=== PATIENT | female | born 1970 | race Caucasian/White ===

== ENCOUNTER 2016-06-09 01:14 | Inpatient (IN) | payer BC ==
[~2016-06-09] VITALS: Ht 160 cm; Wt 74.7 kg
[~2016-06-09 01:14] MED LIST: AUGM500T34 OR; EXCETAB80 PO; LEVA250T OR; LEXAPRO OR; NO HOME MEDS; PERCOCET OR; REVIA; SERO200T OR; TYLE325T5 PO
[2016-06-09 03:39] LABS: BASO % 0.5 % (0.0-1.0); EOS # 0.1 K/mm3 (0.0-0.50); EOS % 1.6 % (0.0-3.0); LARGE UNSTAINED CELL # 0.2 K/mm3 (0.0-0.4); LYMPH # 1.1 K/mm3 (1.5-4.5); LYMPH % 14.3 % (24.0-44.0); MEAN CORPUSCULAR HEMOGLOBIN 24.6 pg (27.0-33.0); MEAN CORPUSCULAR HGB CONC 31.3 g/dl (32.0-36.5); MEAN CORPUSCULAR VOLUME 78.8 fl (80.0-96.0); MONO # 0.5 K/mm3 (0.0-0.8); MONO % 6.4 % (0.0-5.0); NEUTROPHILS # 5.7 K/mm3 (1.8-7.7); NEUTROPHILS % 75.2 % (36.0-66.0); PLATELET COUNT, AUTOMATED 467 k/mm3 (150-450); WHITE BLOOD COUNT 7.6 K/mm3 (4.0-10.0)
[2016-06-09] MEDS ORDERED: HYDROmorphone HCL 1 MG/ML SYRINGE (J1170) As Ordered ONE (03:39)
[2016-06-09 03:50] LABS: ALBUMIN 3.8 GM/DL (3.2-5.2); ALKALINE PHOSPHATASE 69 U/L (45-117); ALT/SGPT 16 U/L (12-78); AMYLASE 53 U/L (25-115); ANION GAP 9 MEQ/L (8-16); AST/SGOT 9 U/L (15-37); BILIRUBIN,DIRECT < 0.1 MG/DL (0.0-0.2); BILIRUBIN,TOTAL 0.5 MG/DL (0.2-1.0); BLOOD UREA NITROGEN 11 MG/DL (7-18); CALCIUM LEVEL 9.1 MG/DL (8.5-10.1); CARBON DIOXIDE LEVEL 26 MEQ/L (21-32); CHLORIDE LEVEL 107 MEQ/L (98-107); CREATININE FOR GFR 0.97 MG/DL (0.55-1.02); GLOMERULAR FILTRATION RATE > 60.0 (>58); GLUCOSE, FASTING 102 MG/DL (70-105); POTASSIUM SERUM 3.5 MEQ/L (3.5-5.1); SODIUM LEVEL 142 MEQ/L (136-145)
[2016-06-09] MEDS ORDERED: ISOVUE-370 76% 100ML VIAL (Q9967) As Ordered ONE (05:08)
--- NOTE | 2016-06-09 06:50 | REPUSA ---
CLINICAL HISTORY: Abdominal pain. TECHNIQUE: Multiple axial, sagittal and coronal CT images were obtained through the abdomen and pelvi s after administration of intravenous contrast material. COMMENTS: Comparison is made to the prior exam performed on 04/28/2016. The liver is of uniform attenuation without mass or defect. There is no intra or extrahepatic biliary ductal dilatation. The spleen is normal. The gallbladder is within normal limits. The pancreas is of normal contour and attenuation characteristics. There is no evidence of adrenal mass. Both kidneys demonstrate prompt and equal nephrograms. The kidneys are normal in size, shape and conf iguration. There is no evidence of renal or ureteral mass. No renal or ureteral calculi are identifie d. There is no hydroureter or hydronephrosis. No evidence for appendicitis. No evidence for small or large bowel obstruction. There is no evidence of intrinsic or extrinsic bladder mass. Unchanged thickened bladder. Increased d iffuse sigmoid wall thickening. Mild increase in surrounding free fluid and fat stranding. Images of the lung bases show no evidence of pleural or parenchymal mass. There are no pleural effusi ons. The bony structures are free of lytic or blastic lesions. Multilevel degenerative changes are seen in volving the thoracolumbar spine. Scattered calcifications are seen involving the aorta and major bran ches compatible with atherosclerosis. IMPRESSION: Sigmoid colitis/diverticulitis. This has increased. Increased free fluid. No perforation or abscess formation. Unchanged cystitis. Thank you for your kind referral of this patient.
[2016-06-09] MEDS ORDERED: CIPROFLOXACIN/D5W 400 MG/200 ML BAG (J0744) As Ordered ONE (07:01)
[2016-06-09] MEDS ORDERED: metroNIDAZOLE/NACL 500MG(5MG/ML)100 ML BAG (S0030) As Ordered ONE (07:24)
[2016-06-09] MEDS ORDERED: MORPHINE 2 MG/ML 1ML SYRINGE As Ordered ONE (09:05)
[2016-06-09] MEDS ORDERED: ONDANSETRON 4MG/2ML VIAL (J2405) As Ordered ONE (09:05)
--- NOTE | 2016-06-09 10:05 | HPE ---
DATE OF ADMISSION: 06/09/2016 PRIMARY CARE PROVIDER: [facility] CHIEF COMPLAINT: Left lower abdominal pain. HISTORY OF PRESENT ILLNESS: This patient is a 46-year-old female with past medical history significant for diverticulitis, migraines, psoriasis, presented to [facility] on 06/09/2016 for worsening of left lower abdominal pain. The patient has a history of diverticulitis since 2 years ago, and the patient has a recurrence of her diverticulitis. The patient has been in [facility] multiple times in the past, including November, January, and April for similar symptoms. For current episode, the pain started since 6 days ago. On 06/04/2016, the pain start acutely when she was having a bowel movement. The pain started at the left lower quadrant, and the pain has been intermittent, worsening with a bowel movement or any type of oral intake. The pain resolved when the patient is not taking any oral intake. The pain is sharp and radiates to the back and the thigh. The patient also complained about nausea and vomiting associated with the pain. Denies any other associated symptoms. When the patient arrived to the emergency room, the patient had a CT imaging performed, which showed sigmoid colitis/diverticulitis and is worsening compared to previous imaging. The patient was given intravenous (IV) Dilaudid and antibiotic of Cipro was started, and the hospitalist team was called for admission. ALLERGIES: PHENERGAN (hallucination). REGLAN (agitation, hyperactivity). The patient's home medication: - aspirin 162 mg by mouth every day PAST MEDICAL HISTORY: Recurrent diverticulitis. Migraine headaches (The patient was prescribed nortriptyline in the past in the last hospitalization; however, the patient stopped taking the medication due to discomfort from the medication.) History of psoriasis. History of shingles. PAST SURGICAL HISTORY: Tubal ligation. Appendectomy. SOCIAL HISTORY: Denies smoking. Denies alcohol use. Denies any recreational drug use. The patient has multiple tattoos throughout her whole body. REVIEW OF SYSTEMS: General: No fever. No chills. HEENT: No vision changes. No auditory changes. CARDIOVASCULAR: No chest pain. No palpitations. RESPIRATORY: No shortness of breath. No cough. No sputum production. GASTROINTESTINAL (GI): Acute left lower abdominal pain. Sharp. Radiates to the back and the thigh. Started approximately 6 days ago. A history of recurrent diverticulitis. MUSCULOSKELETAL: Multiple tattoos throughout her whole body. NEUROLOGICAL: Denies any numbness or tingling. OBJECTIVE: VITAL SIGNS: Blood pressure is 119/56. Pulse is 93. Respiration 20. Temperature is 98.3. Pulse oximetry is 96% in room air. Body weight is 73.48 kg. Body height is 160 cm. GENERAL: Mild to moderate distress, worsening with abdominal pain. Alert and oriented times three. HEENT: Normocephalic, atraumatic. Extraocular motor grossly intact. CARDIOVASCULAR: Positive S1, S2. Regular rate. LUNGS: Clear to auscultation bilaterally. No wheezes or rhonchi. ABDOMEN: Severe tenderness from palpation when palpated on the right side of abdomen, the tenderness occur on the left side. Mild pressure at the left lower abdomen causes significant sharp pain with the radiations. Abdomen is soft. Bowel sounds present. EXTREMITIES: No edema. No cyanosis. DERMATOLOGICAL: Multiple tattoos throughout the whole body. NEUROLOGICAL: Sensation to fine touch grossly intact. Muscle strength 5/5. LABORATORY DATA: WBC is 7.6, hemoglobin 10.6, hematocrit 34, platelet count is 467. Sodium is 142, potassium 3.5, chloride 107, carbon dioxide 36, BUN 11, creatinine 0.97, GFR greater than 60, fasting glucose 102, lactic acid 0.6, calcium 9.1, total bilirubin 0.5, direct bilirubin less than 0.1, AST 9, ALT 16, alkaline phosphatase 69, total protein 8, albumin is 3.8, amylase 53, lipase is 160. IMAGING STUDIES: CT of abdomen and pelvis with contrast shows sigmoid colitis/diverticulitis, and it has increased. Free fluid. No perforation or abscess formation. Positive for cystitis. ASSESSMENT: 1. Diverticulitis. The patient will be admitted to the medical-surgical floor on the inpatient status. The patient was started on IV Cipro and IV flagyl, and the patient will start nothing by mouth, and IV morphine is used for pain control. IV Zofran for nausea and vomiting. The patient currently cannot even tolerate any type of oral intake. The patient will be on IV fluid. 2. History of migraines. Neurology was consulted during the last hospitalization. Nortriptyline was prescribed, however, the patient complained about severe reaction to the nortriptyline; and, therefore, the patient has not been taking the medication. 3. History of psoriasis, stable. 4. Deep venous thrombosis (DVT) prophylaxis. The patient will be on heparin.
--- NOTE | 2016-06-09 10:55 | EDDOCDS ---
Nurse's Notes [facility] Name: Melida Welch Age: 46 yrs Sex: Female : 1970 Arrival Date: 06/09/2016 Time: 01:14 Bed 6 Private MD: Diagnosis: Diverticulitis of large intestine without perforation or abscess without bleeding Presentation: 06/09 01:29 Presenting complaint: Patient states: abdominal pain since Friday gradually getting cz worse vomiting when attempting to eat. last b.m. one week ago used magnesium citrate without relief. Risk factors: the patient reports no vaginal bleeding. Adult Sepsis Screening: The patient does not have new or worsening altered mentation. Patient has a respiratory rate of greater than or equal to 22 (1 point). Systolic blood pressure is greater than 100. Patient has a qSOFA score of 0- Negative Sepsis Screen. Suicide/Homicide risk assessment- the patient denies having any suicidal and/or homicidal ideations and does not present with any other emotional, behavioral or mental health complaints. Status: Patient is not a director of perioperative services or dependent. Transition of care: patient was not received from another setting of care. 01:29 Acuity: KATY Level 3 cz 01:29 Method Of Arrival: Walkin/Carried/Asstd cz Triage Assessment: 01:31 General: Appears distressed, uncomfortable. Pain: Location: abdomen Pain currently is cz 10 out of 10 on a pain scale. HIV screening NA for this visit Offered previously. ACCOUNTANT COST: 01:31 LMP 06/02/2016 cz Historical: - Allergies: Phenergan (hallucination); Reglan (hyperactive); - Home Meds: 1. aspirin 81 mg Oral chew 2 tabs once daily - PMHx: Diverticulitis; Migraines; Psoriasis; Shingles; - PSHx: Tubal ligation; Appendectomy; - Social history: Smoking status: Patient states was never smoker of tobacco. No barriers to communication noted, The patient speaks fluent Vietnamese, Speaks appropriately for age. - Family history: Not pertinent. - : The pt / caregiver states he / she is not on anticoagulants. Home medication list is obtained from [employer] import data. - Exposure Risk Screening:: None identified. Screenin:55 Screening information is obtained from the patient. Fall risk: No risks identified. js15 Assistance ADL's: requires no assistance with activities of daily living. Abuse/DV Screen: The patient / caregiver reports he/she is: not in a situation that causes fear, pain or injury. Nutritional screening: No deficits noted. Advance Directives: There is no active DNR order. home support is adequate. Assessment: 03:15 General: Appears distressed, uncomfortable, Behavior is crying. Pain: Location: abdomen js15 Pain currently is 10 out of 10 on a pain scale. Neurological: Level of Consciousness is awake, alert, obeys commands, Oriented to person, place, time. Cardiovascular: Capillary refill < 3 seconds. Respiratory: Airway is patent Respiratory effort is even, unlabored, Respiratory pattern is regular, symmetrical. GI: Abdomen is distended, Bowel sounds present X 4 quads. Abd is tender to palpation in abdomen diffusely firm. Derm: Skin is pink, warm & dry. 04:30 Reassessment: Patient appears in no apparent distress at this time. Pt resting on js15 stretcher, respirations even and unlabored; skin pink, warm, dry. 05:55 Reassessment: Patient appears in no apparent distress at this time. Patient denies pain js15 at this time. Patient states feeling better. Patient states symptoms have improved. Pt resting on stretcher with eyes closed; significant other at bedside; respirations even and unlabored; skin pink, warm, dry. 06:56 General: Appears in no apparent distress, to be sleeping. Respiratory: Airway is patent js15 Respiratory effort is even, unlabored, Respiratory pattern is regular, symmetrical. Derm: Skin is pink, warm & dry. 07:26 General: Appears in no apparent distress, Behavior is appropriate for age, cooperative. srm Neurological: No deficits noted. EENT: No deficits noted. Cardiovascular: Heart tones present. Respiratory: Airway is patent Respiratory effort is even, unlabored, Breath sounds are clear bilaterally. GI: Abdomen is distended, Bowel sounds present X 4 quads. Abd is soft X 4 quads Abd is tender to palpation X 4 quads. 08:23 General: pt resting on stretcher. nausea comes and goes. awaiting admitting MD to patricia srm pt. pt states she really doesn't want to be admitted. encouraged her to inform admitting MD when they arrive. 09:14 General: Appears uncomfortable, Behavior is appropriate for age, cooperative. srm Neurological: No deficits noted. Cardiovascular: Capillary refill < 3 seconds in bilateral fingers. Respiratory: No deficits noted. GI: Abdomen is distended, Bowel sounds present X 4 quads. Abd is tender to palpation X 4 quads. Reports lower abdominal pain, nausea. 10:46 General: Appears in no apparent distress, Behavior is appropriate for age, cooperative. srm Neurological: No deficits noted. :. Derm: Skin is pale. Vital Signs: 01:31 BP 164 / 91; Pulse 144; Resp 22; Temp 97(O); Pulse Ox 97% on R/A; Weight 73.48 kg; cz Height 5 ft. 3 in. (160.02 cm); 06:00 BP 119 / 56 RA Supine (auto/reg); Pulse 93 MON; Resp 20 S; Temp 98.3(TE); Pulse Ox 96% cln on R/A; Pain 3/10; 09:17 BP 105 / 70; Pulse 99; Resp 18; Temp 98.7(O); Pulse Ox 95% on R/A; Pain 3/10; nb2 10:47 BP 99 / 55; Pulse 109; Resp 18; Temp 98.6(O); Pulse Ox 95% on R/A; Pain 2/10; nb2 01:31 Body Mass Index 28.70 (73.48 kg, 160.02 cm) Vitals: 01:31 Log In Time: June 09, 2016 at 01:14. ED Course: 01:16 Patient visited by Quynh Aguilar. gjb 01:16 Patient moved to Waiting gjb 01:22 Patient moved to Triage 1 cz 01:30 Triage Initiated 01:33 Patient moved to 6 cz 02:33 Patient visited by Rika Castillo PCA. solomon 03:08 Samm Harris DO is Attending Physician. cs11 03:08 Patient visited by Samm Harris DO. cs11 03:40 Inserted saline lock: 20 gauge in left antecubital area The patient tolerated the js15 procedure well. 03:49 [facility] [place] Payment Agreement was scanned into [employer] and attached to record. [facility] 03:54 Lactic Acid (Oakes tube on ice) Sent. js15 04:21 Patient visited by Marjorie Moncada RN. js15 05:39 Patient visited by Marjorie Moncada RN. js15 06:01 Patient visited by Ginger Barroso PCA. cln 06:56 Patient visited by Marjorie Moncada,MONICA. js15 07:06 Report received from Kristy Moncada rn. srm 07:07 CT ABD & PELVIS: IV Contrast Only Returned. EDMS 07:12 Sulaiman Terrazas is Hospitalizing Provider. cs11 07:28 Patient visited by Dayami Parker RN. srm 07:28 The patient / caregiver is instructed regarding the plan of care and ED course. srm 07:43 Edward Crawford MD is Hospitalizing Provider. cs11 08:12 Citlaly Pemberton principal statistical scientist. ys2 08:24 Patient visited by Dayami Parker RN. srm 08:31 Patient visited by Dayami Parker RN. srm 09:16 Patient visited by Dayami Parker RN. srm 09:16 ATTEMPTED TO CALL REPORT NOONE ANSWERED THE PHONE. srm 09:17 Patient visited by Dayami Parker RN. srm 09:17 Patient visited by Stephany Mon. nb2 10:36 Patient visited by Eliezer Cha RN. bcj 10:47 Patient visited by Stephany Mon. nb2 10:53 No procedures done that require assistance. srm Administered Medications: 03:48 Drug: NS 0.9% 1000 ml [sodium chloride 0.9 % intravenous solution] Route: IV; Rate: js15 bolus; Site: left antecubital; 05:24 Follow up: IV Status: Completed infusion; IV Intake: 1000ml ko2 03:48 Drug: Dilaudid - HYDROmorphone 1 mg [hydromorphone 1 mg/mL injection syringe (1 mL)] js15 Route: IVP; Site: left antecubital; 07:06 Drug: Ciprofloxacin 400 mg [ciprofloxacin 400 mg/200 mL in 5 % dextrose intravenous pml piggyback] Route: IVPB; Rate: 200 mL/hr; Infused Over: 60 mins; Site: left antecubital; 08:06 Follow up: IV Status: Completed infusion srm 09:08 Follow up: IV Status: Completed infusion srm 08:06 Drug: metroNIDAZOLE 500 mg [metronidazole 500 mg/100 mL-sodium chloride(iso) srm intravenous piggyback] Route: IVPB; Rate: 100 mL/hr; Infused Over: 60 mins; Site: left antecubital; 09:08 Drug: NS 0.9% 1000 ml [sodium chloride 0.9 % intravenous solution] Route: IV; Rate: 80 srm mL/hr; Site: left antecubital; 09:08 Drug: Ondansetron 4 mg [ondansetron HCl 2 mg/mL intravenous solution (2 mL)] Route: srm IVP; Site: left antecubital; 09:09 Drug: morphine 2 mg [morphine 2 mg/mL intravenous cartridge (1 mL)] Route: IVP; Site: srm left antecubital; Intake: 05:24 IV: 1000.00ml; Total: 1000.00ml. ko2 09:14 IV: 300.00ml; Total: 1300.00ml. srm 10:53 IV: 250.00ml; Total: 1550.00ml. srm 09:14 IV ANTIBIOTICS srm Order Results: Lab Order: CBC with Diff; SPEC'M 06/09/16 03:19 Test: WHITE BLOOD COUNT; Value: 7.6; Range: 4.0-10.0; Units: K/mm3; Status: F Test: RED BLOOD COUNT; Value: 4.31; Range: 4.00-5.40; Units: M/mm3; Status: F Test: HEMOGLOBIN; Value: 10.6; Range: 12.0-16.0; Abnormal: Below low normal; Units: g/dl; Status: F Test: HEMATOCRIT; Value: 34.0; Range: 36.0-47.0; Abnormal: Below low normal; Units: %; Status: F Test: MEAN CORPUSCULAR VOLUME; Value: 78.8; Range: 80.0-96.0; Abnormal: Below low normal; Units: fl; Status: F Test: MEAN CORPUSCULAR HEMOGLOBIN; Value: 24.6; Range: 27.0-33.0; Abnormal: Below low normal; Units: pg; Status: F Test: MEAN CORPUSCULAR HGB CONC; Value: 31.3; Range: 32.0-36.5; Abnormal: Below low normal; Units: g/dl; Status: F Test: RED CELL DISTRIBUTION WIDTH; Value: 17.0; Range: 11.5-14.5; Abnormal: Above high normal; Units: %; Status: F Test: PLATELET COUNT, AUTOMATED; Value: 467; Range: 150-450; Abnormal: Above high normal; Units: k/mm3; Status: F Test: NEUTROPHILS %; Value: 75.2; Range: 36.0-66.0; Abnormal: Above high normal; Units: %; Status: F Test: LYMPH %; Value: 14.3; Range: 24.0-44.0; Abnormal: Below low normal; Units: %; Status: F Test: MONO %; Value: 6.4; Range: 0.0-5.0; Abnormal: Above high normal; Units: %; Status: F Test: EOS %; Value: 1.6; Range: 0.0-3.0; Units: %; Status: F Test: BASO %; Value: 0.5; Range: 0.0-1.0; Units: %; Status: F Test: LARGE UNSTAINED CELL %; Value: 2.0; Range: 0.0-4.0; Units: %; Status: F Test: NEUTROPHILS #; Value: 5.7; Range: 1.8-7.7; Units: K/mm3; Status: F Test: LYMPH #; Value: 1.1; Range: 1.5-4.5; Abnormal: Below low normal; Units: K/mm3; Status: F Test: MONO #; Value: 0.5; Range: 0.0-0.8; Units: K/mm3; Status: F Test: EOS #; Value: 0.1; Range: 0.0-0.50; Units: K/mm3; Status: F Test: BASO #; Value: 0.0; Range: 0.0-0.2; Units: K/mm3; Status: F Test: LARGE UNSTAINED CELL #; Value: 0.2; Range: 0.0-0.4; Units: K/mm3; Status: F Lab Order: MED Profile; SPEC'M 06/09/16 03:19 Test: GLUCOSE, FASTING; Value: 102; Range: 70-105; Units: MG/DL; Status: F Test: BLOOD UREA NITROGEN; Value: 11; Range: 7-18; Units: MG/DL; Status: F Test: CREATININE FOR GFR; Value: 0.97; Range: 0.55-1.02; Units: MG/DL; Status: F Test: GLOMERULAR FILTRATION RATE; Value: > 60.0; Range: >58; Status: F Test: SODIUM LEVEL; Value: 142; Range: 136-145; Units: MEQ/L; Status: F Test: POTASSIUM SERUM; Value: 3.5; Range: 3.5-5.1; Units: MEQ/L; Status: F Test: CHLORIDE LEVEL; Value: 107; Range: 98-107; Units: MEQ/L; Status: F Test: CARBON DIOXIDE LEVEL; Value: 26; Range: 21-32; Units: MEQ/L; Status: F Test: ANION GAP; Value: 9; Range: 8-16; Units: MEQ/L; Status: F Test: CALCIUM LEVEL; Value: 9.1; Range: 8.5-10.1; Units: MG/DL; Status: F Test Note: ; Units are mL/min/1.73 m2 Chronic Kidney Disease Staging per NKF: Stage I & II GFR >=60 Normal to Mildly Decreased Stage III GFR 30-59 Moderately Decreased Stage IV GFR 15-29 Severely Decreased Stage V GFR <15 Very Little GFR Left ESRD GFR <15 on 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 Lab Order: Liver Profile; SPEC'M 06/09/16 03:19 Test: AST/SGOT; Value: 9; Range: 15-37; Abnormal: Below low normal; Units: U/L; Status: F Test: ALT/SGPT; Value: 16; Range: 12-78; Units: U/L; Status: F Test: ALKALINE PHOSPHATASE; Value: 69; Range: 45-117; Units: U/L; Status: F Test: BILIRUBIN,TOTAL; Value: 0.5; Range: 0.2-1.0; Units: MG/DL; Status: F Test: BILIRUBIN,DIRECT; Value: < 0.1; Range: 0.0-0.2; Units: MG/DL; Status: F Test: TOTAL PROTEIN; Value: 8.0; Range: 6.4-8.2; Units: GM/DL; Status: F Test: ALBUMIN; Value: 3.8; Range: 3.2-5.2; Units: GM/DL; Status: F Test: ALBUMIN/GLOBULIN RATIO; Value: 0.90; Range: 1.00-1.93; Abnormal: Below low normal; Status: F Lab Order: Amylase; SPEC'M 06/09/16 03:19 Test: AMYLASE; Value: 53; Range: 25-115; Units: U/L; Status: F Lab Order: Lipase; SPEC'M 06/09/16 03:19 Test: LIPASE; Value: 160; Range: 73-393; Units: U/L; Status: F Lab Order: Urinalysis; SPEC'M 06/09/16 03:54 Test: APPEARANCE, URINE; Value: CLEAR; Range: CLEAR; Status: F Test: COLOR, URINE; Value: YELLOW; Range: YELLOW; Status: F Test: PH,URINE; Value: 5.0; Range: 5.0-9.0; Units: UNITS; Status: F Test: SPECIFIC GRAVITY URINE AUTO; Value: 1.026; Range: 1.002-1.035; Status: F Test: PROTEIN, URINE AUTO; Value: NEGATIVE; Range: NEGATIVE; Units: mg/dL; Status: F Test: GLUCOSE, URINE (UA) AUTO; Value: NEGATIVE; Range: NEGATIVE; Units: mg/dL; Status: F Test: KETONE, URINE AUTO; Value: NEGATIVE; Range: NEGATIVE; Units: mg/dL; Status: F Test: UROBILINOGEN, URINE AUTO; Value: 0.2; Range: 0.0-2.0; Units: mg/dL; Status: F Test: BILIRUBIN, URINE AUTO; Value: NEGATIVE; Range: NEGATIVE; Status: F Test: NITRITE, URINE AUTO; Value: NEGATIVE; Range: NEGATIVE; Status: F Test: LEUKOCYTE ESTERASE, URINE AUTO; Value: NEGATIVE; Range: NEGATIVE; Status: F Test: BLOOD, URINE BLOOD; Value: NEGATIVE; Range: NEGATIVE; Status: F Test: WBC, URINE AUTO; Value: 2; Range: 0-3; Units: /HPF; Status: F Test: RBC, URINE AUTO; Value: 1; Range: 0-3; Units: /HPF; Status: F Test: BACTERIA, URINE AUTO; Value: 1+; Range: NEGATIVE; Abnormal: Above high normal; Status: F Test: SQUAMOUS EPITHELIAL CELL UR AU; Value: 7; Range: 0-6; Units: /HPF; Status: F Test: MUCUS, URINE; Value: SMALL; Range: NEGATIVE; Status: F Test: HYALINE CAST, URINE AUTO; Value: 0; Range: 0-1; Units: /LPF; Status: F Lab Order: Lactic Acid (Oakes tube on ice); SPEC'M 06/09/16 03:52 Test: LACTIC ACID LEVEL, LACTATE; Value: 0.6; Range: 0.4-2.0; Units: MMOL/L; Status: F Radiology Order: CT ABD & PELVIS: IV Contrast Only Test: CT ABD & PELVIS: IV Contrast Only REASON FOR EXAMINATION: Abdomen Pain; ; CLINICAL HISTORY: Abdominal pain.; TECHNIQUE: Multiple axial, sagittal and coronal CT images were obtained through the abdomen and pelvi; s after administration of intravenous contrast material.; COMMENTS:; Comparison is made to the prior exam performed on 04/28/2016.; The liver is of uniform attenuation without mass or defect. There is no intra or extrahepatic biliary; ductal dilatation. The spleen is normal. The gallbladder is within normal limits. The pancreas is of; normal contour and attenuation characteristics. There is no evidence of adrenal mass.; Both kidneys demonstrate prompt and equal nephrograms. The kidneys are normal in size, shape and conf; iguration. There is no evidence of renal or ureteral mass. No renal or ureteral calculi are identifie; d. There is no hydroureter or hydronephrosis.; No evidence for appendicitis. No evidence for small or large bowel obstruction.; There is no evidence of intrinsic or extrinsic bladder mass. Unchanged thickened bladder. Increased d; iffuse sigmoid wall thickening. Mild increase in surrounding free fluid and fat stranding.; Images of the lung bases show no evidence of pleural or parenchymal mass. There are no pleural effusi; ons.; The bony structures are free of lytic or blastic lesions. Multilevel degenerative changes are seen in; volving the thoracolumbar spine. Scattered calcifications are seen involving the aorta and major bran; ches compatible with atherosclerosis.; IMPRESSION:; Sigmoid colitis/diverticulitis. This has increased.; Increased free fluid.; No perforation or abscess formation.; Unchanged cystitis.; Thank you for your kind referral of this patient.; ; Outcome: 07:12 Decision to Hospitalize by Provider. cs11 10:53 Discharge Assessment: Patient awake, alert and oriented x 3. No cognitive and/or srm functional deficits noted. Patient verbalized understanding of disposition instructions. patient administered narcotics - yes. Patient was admitted to the hospital or transferred to another facility. The following High Risk Discharge criteria are identified: None. Admitted to Med/Surg accompanied by tech, via stretcher, with chart. Condition: stable. CT Study completed. Property :Personal belongings accompany Pt. 10:55 Patient left the ED. srm Signatures: Dispatcher [employer] EDMS Eliezer Cha, RN RN Dayami Paulson RN RN Alejandro Whitaker, RN Rika Del Cid, PRACTICAL NURSE PRACTICAL NURSE Telma ReaRN RN Samm Lopez, DO cs11 Lucia JayRN RN ko2 Johanna Trimble JuliaRN RN js15 Quynh Aguilar Yu ys2 Ginger Barroso, PRACTICAL NURSE PRACTICAL NURSE Stephany Connor2 MTDD
--- NOTE | 2016-06-09 10:55 | EDDOCDS ---
Physician Documentation [facility] Name: Melida Welch Age: 46 yrs Sex: Female : 1970 Arrival Date: 06/09/2016 Time: 01:14 Bed 6 Private MD: Disposition: 06/09/16 07:12 Hospitalization ordered by Edward Crawford for Inpatient Admission. Preliminary diagnosis is Diverticulitis of large intestine without perforation or abscess without bleeding. - Bed requested for 5 [employer]. - Status is Inpatient Admission. srm - Condition is Stable. - Problem is an ongoing problem. - Symptoms have improved. Historical: - Allergies: Phenergan (hallucination); Reglan (hyperactive); - Home Meds: 1. aspirin 81 mg Oral chew 2 tabs once daily - PMHx: Diverticulitis; Migraines; Psoriasis; Shingles; - PSHx: Tubal ligation; Appendectomy; - Social history: Smoking status: Patient states was never smoker of tobacco. No barriers to communication noted, The patient speaks fluent Japanese, Speaks appropriately for age. - Family history: Not pertinent. - : The pt / caregiver states he / she is not on anticoagulants. Home medication list is obtained from [employer] import data. - Exposure Risk Screening:: None identified. 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 3 in. (160.02 cm); 06:00 BP 119 / 56 RA Supine (auto/reg); Pulse 93 MON; Resp 20 S; Temp 98.3(TE); Pulse Ox 96% cln on R/A; Pain 3/10; 09:17 BP 105 / 70; Pulse 99; Resp 18; Temp 98.7(O); Pulse Ox 95% on R/A; Pain 3/10; nb2 10:47 BP 99 / 55; Pulse 109; Resp 18; Temp 98.6(O); Pulse Ox 95% on R/A; Pain 2/10; nb2 01:31 Body Mass Index 28.70 (73.48 kg, 160.02 cm) cz MDM: 03:[address] [facility] 03:28 IV Saline Lock ordered. cs11 03:28 NS 0.9% 1000 ml IV at bolus once ordered. cs11 03:28 Dilaudid - HYDROmorphone 1 mg IVP once ordered. cs11 03:29 CBC with Diff Ordered. EDMS 03:29 MED Profile Ordered. EDMS 03:29 Liver Profile Ordered. EDMS 03:29 Amylase Ordered. EDMS 03:29 Lipase Ordered. EDMS 03:29 Urinalysis Ordered. EDMS 03:29 Urine Culture Ordered. EDMS 03:29 Lactic Acid (Oakes tube on ice) Ordered. EDMS 03:49 [facility] Payment Agreement was scanned into [employer] and attached to record. slh 04:25 CBC with Diff Reviewed. cs11 04:25 Liver Profile Reviewed. cs11 04:25 Urinalysis Reviewed. cs11 04:25 MED Profile Reviewed. cs11 04:25 Amylase Reviewed. cs11 04:25 Lipase Reviewed. cs11 04:25 Lactic Acid (Oakes tube on ice) Reviewed. cs11 04:27 CT ABD & PELVIS: IV Contrast Only Ordered. EDMS 06:58 BED REQUEST+ADM ordered. EDMS 06:59 metroNIDAZOLE 500 mg IVPB at 100 mL/hr once over 60 mins ordered. cs11 06:59 Ciprofloxacin 400 mg IVPB at 200 mL/hr once over 60 mins ordered. cs11 08:50 Admission / Observation Status ordered. EDMS 08:50 NPO DIET ordered. EDMS 09:12 NS 0.9% 1000 ml IV at 80 mL/hr continuous ordered. srm 09:13 morphine 2 mg IVP once ordered. srm 09:13 Ondansetron 4 mg IVP once ordered. srm Administered Medications: 03:48 Drug: NS 0.9% 1000 ml [sodium chloride 0.9 % intravenous solution] Route: IV; Rate: js15 bolus; Site: left antecubital; 05:24 Follow up: IV Status: Completed infusion; IV Intake: 1000ml ko2 03:48 Drug: Dilaudid - HYDROmorphone 1 mg [hydromorphone 1 mg/mL injection syringe (1 mL)] js15 Route: IVP; Site: left antecubital; 07:06 Drug: Ciprofloxacin 400 mg [ciprofloxacin 400 mg/200 mL in 5 % dextrose intravenous pml piggyback] Route: IVPB; Rate: 200 mL/hr; Infused Over: 60 mins; Site: left antecubital; 08:06 Follow up: IV Status: Completed infusion [facility] 09:08 Follow up: IV Status: Completed infusion [facility] 08:06 Drug: metroNIDAZOLE 500 mg [metronidazole 500 mg/100 mL-sodium chloride(iso) srm intravenous piggyback] Route: IVPB; Rate: 100 mL/hr; Infused Over: 60 mins; Site: left antecubital; 09:08 Drug: NS 0.9% 1000 ml [sodium chloride 0.9 % intravenous solution] Route: IV; Rate: 80 srm mL/hr; Site: left antecubital; 09:08 Drug: Ondansetron 4 mg [ondansetron HCl 2 mg/mL intravenous solution (2 mL)] Route: srm IVP; Site: left antecubital; 09: Drug: morphine 2 mg [morphine 2 mg/mL intravenous cartridge (1 mL)] Route: IVP; Site: [facility] left antecubital; Signatures: Dispatcher [employer] EDEliezer Meléndez RN RN bcj Michelson, Staci, RN RN [facility] Alejandro Og RN RN cz Rabon, Alicia, PROPERTY ANALYST PROPERTY ANALYST ar3 Samm Harris, DO cs11 Johanna [address] [facility] Telma Blankenship RN, Kari RN ko2 Marjorie Moncada RN js15 The chart was reviewed and I authenticate all verbal orders and agree with the evaluation and treatment provided.Attachments: 03:[address] [facility] Payment [address] [facility] MTDD
[2016-06-09 11:13] VITALS: BP 111/69
[2016-06-09] MEDS: HEPARIN SOD (PORCINE) 5000 UNITS/ML VIAL SC SCH ×2 (13:40→20:46)
[2016-06-09] MEDS: MORPHINE 2 MG/ML 1ML SYRINGE IV PRN ×3 (13:40→20:52)
[2016-06-09] MEDS: NS 1,000 ML IV SCH ×2 (13:41→20:47)
[2016-06-09 20:00] VITALS: BP 115/68
[2016-06-10] MEDS: MORPHINE 2 MG/ML 1ML SYRINGE IV PRN ×6 (00:41→18:34)
[2016-06-10] MEDS: HEPARIN SOD (PORCINE) 5000 UNITS/ML VIAL SC SCH ×3 (04:41→21:34)
[2016-06-10 06:00] VITALS: BP 105/59
[2016-06-10 06:53] LABS: MEAN CORPUSCULAR HEMOGLOBIN 24.3 pg (27.0-33.0); MEAN CORPUSCULAR HGB CONC 30.1 g/dl (32.0-36.5); MEAN CORPUSCULAR VOLUME 80.9 fl (80.0-96.0); WHITE BLOOD COUNT 4.9 K/mm3 (4.0-10.0)
[2016-06-10 07:23] LABS: ANION GAP 8 MEQ/L (8-16); BLOOD UREA NITROGEN 5 MG/DL (7-18); CALCIUM LEVEL 8.5 MG/DL (8.5-10.1); CARBON DIOXIDE LEVEL 24 MEQ/L (21-32); CHLORIDE LEVEL 110 MEQ/L (98-107); CREATININE FOR GFR 0.73 MG/DL (0.55-1.02); GLOMERULAR FILTRATION RATE > 60.0 (>58); GLUCOSE, FASTING 84 MG/DL (70-105); POTASSIUM SERUM 4.4 MEQ/L (3.5-5.1); SODIUM LEVEL 142 MEQ/L (136-145)
[2016-06-10] MEDS: NS 1,000 ML IV SCH (09:07)
[2016-06-10] MEDS: ONDANSETRON 4MG/2ML VIAL (J2405) IV PRN ×2 (09:08→15:12)
[2016-06-10] MEDS ORDERED: CIPROFLOXACIN 400 MG in APPROPRIATE DILUENT 1 EA IV SCH ×2 (11:00→19:00)
[2016-06-10] MEDS: metroNIDAZOLE 500 MG in APPROPRIATE DILUENT 1 EA IV SCH ×2 (13:35→21:33)
[2016-06-10 14:00] VITALS: BP 113/55
[2016-06-10] MEDS: CEFEPIME HCL 2 GM in D5W MINI-BAG PLUS 50 ML IV SCH (15:01)
[2016-06-10 16:00] VITALS: BP 122/67
--- NOTE | 2016-06-10 17:42 | IPN ---
DATE: 06/10/2016 SUBJECTIVE: Patient is seen and examined in the room today. Patient still complained about abdominal discomfort. Patient had received antibiotics in the emergency room yesterday. Ciprofloxacin was attempted again today. However, the patient started having gastrointestinal (GI) intolerance from the Cipro. OBJECTIVE: VITAL SIGNS: Temperature is 98.1, pulse is 95, respiratory rate 18, blood pressure is 105/59, pulse oximetry is 96% on room air. GENERAL: Mild to moderate distress secondary to GI discomfort. Patient is alert and oriented times three. HEENT: Normocephalic, atraumatic. Extraocular motor grossly intact. CARDIOVASCULAR: Positive S1, S2, regular rate. LUNGS: Clear to auscultation bilaterally. No wheezes, rales, or rhonchi. ABDOMEN: Tenderness to palpation especially in the lower abdomen, left side is more significant than the right side. Abdomen is soft. Bowel sounds present. EXTREMITIES: No edema. No cyanosis. LABORATORY DATA: WBC 4.9, hemoglobin 9.4, hematocrit 31.3, platelet count is 362. Sodium is 142, potassium 4.4, chloride is 110, carbon dioxide 24, BUN 5, creatinine is 0.73, GFR is greater than 60, fasting glucose 84, calcium is 8.4. ASSESSMENT AND PLAN: 1. Diverticulitis. The patient had IV antibiotics in the emergency room yesterday. Today, the patient was restarted on Cipro and Flagyl. However, the patient is unable to tolerate the IV Cipro due to the gastrointestinal (GI) symptoms. IV Zofran is not able to control the symptoms. The patient is allergic to Reglan and Phenergan. We will switch her antibiotic to IV Flagyl and IV cefepime. The patient will continue on the pain control with the medications. The patient is continued on nothing by mouth. 2. History of migraine, stable. 3. History of psoriasis, stable. 4. Deep vein thrombosis (DVT) prophylaxis. The patient is on heparin.
[2016-06-10 20:00] VITALS: BP 101/59
[2016-06-10] MEDS ORDERED: PERCOCET 5MG/325MG TAB PO PRN (22:45)
[2016-06-11] VITALS: BP 106/62
[2016-06-11] MEDS: PERCOCET 5MG/325MG TAB PO PRN ×3 (00:30→10:13)
[2016-06-11 04:00] VITALS: BP 99/59
[2016-06-11] MEDS: CEFEPIME HCL 2 GM in D5W MINI-BAG PLUS 50 ML IV SCH ×2 (04:00→14:46)
[2016-06-11] MEDS: metroNIDAZOLE 500 MG in APPROPRIATE DILUENT 1 EA IV SCH ×3 (04:00→20:33)
[2016-06-11] MEDS: NS 1,000 ML IV SCH ×2 (04:00→14:46)
[2016-06-11] MEDS: HEPARIN SOD (PORCINE) 5000 UNITS/ML VIAL SC SCH ×3 (06:16→20:33)
[2016-06-11 07:33] LABS: MEAN CORPUSCULAR HEMOGLOBIN 24.7 pg (27.0-33.0); MEAN CORPUSCULAR HGB CONC 30.9 g/dl (32.0-36.5); RED CELL DISTRIBUTION WIDTH 16.5 % (11.5-14.5)
[2016-06-11 08:00] VITALS: BP 109/67
[2016-06-11 08:02] LABS: ANION GAP 8 MEQ/L (8-16); BLOOD UREA NITROGEN 8 MG/DL (7-18); CALCIUM LEVEL 8.3 MG/DL (8.5-10.1); CARBON DIOXIDE LEVEL 23 MEQ/L (21-32); CHLORIDE LEVEL 110 MEQ/L (98-107); CREATININE FOR GFR 0.68 MG/DL (0.55-1.02); GLOMERULAR FILTRATION RATE > 60.0 (>58); GLUCOSE, FASTING 81 MG/DL (70-105); POTASSIUM SERUM 3.8 MEQ/L (3.5-5.1); SODIUM LEVEL 141 MEQ/L (136-145)
[2016-06-11] MEDS ORDERED: INFLUENZA QUADRIVALENT PF VACCINE 0.5ML SYRINGE/VIAL (90686) IM ONE (09:00)
--- NOTE | 2016-06-11 11:16 | IPN ---
DATE: 06/11/2016 46-year-old female resting comfortably. She feels that abdominal pain is much improved. She is not nauseated. No vomiting and no reported diarrhea. OBJECTIVE: Temperature 97.1, pulse 98, respiratory rate 16, blood pressure (BP) 109/67, SpO2 is 99% on room air. General: The patient appears to be in no acute distress, is alert, oriented. HEENT: Unremarkable. Lungs: Clear. Heart: Regular rate and rhythm. Abdomen: Some vague left lower quadrant tenderness but no rebound. Positive bowel sounds. No masses. No rebound. Extremities: No edema. No calf tenderness. LABORATORY DATA: White count 5.2, hemoglobin 9.5, platelets 316,000. Sodium 141, potassium 3.8, chloride 110, bicarbonate 23, anion gap 8, BUN is 8, creatinine 0.68, glucose is 81, calcium is 8.3. ASSESSMENT AND PLAN: 1. Diverticulitis. Continue on current antibiotic. She is on intravenous (IV) Flagyl and cefotetan. Was unable to tolerate IV Cipro. Continue with IV Zofran and will try to advance her diet today. Anticipate home discharge in the next 24-48 hours. 2. History of migraine, stable. No current issues. 3. History of psoriasis. No issues. 4. Deep venous thrombosis (DVT) prophylaxis. On heparin. DISPOSITION: Anticipate home discharge, possibly with the next 24 hours.
--- NOTE | 2016-06-11 11:56 | EDDOCDS ---
Physician Documentation [facility] Name: Melida Welch Age: 46 yrs Sex: Female : 1970 Arrival Date: 06/09/2016 Time: 01:14 Bed 6 Private MD: Disposition: 06/09/16 07:12 Hospitalization ordered by Edward Crawford for Inpatient Admission. Preliminary diagnosis is Diverticulitis of large intestine without perforation or abscess without bleeding. - Bed requested for 5 [employer]. - Status is Inpatient Admission. srm - Condition is Stable. - Problem is an ongoing problem. - Symptoms have improved. Historical: - Allergies: Phenergan (hallucination); Reglan (hyperactive); - Home Meds: 1. aspirin 81 mg Oral chew 2 tabs once daily - PMHx: Diverticulitis; Migraines; Psoriasis; Shingles; - PSHx: Tubal ligation; Appendectomy; - Social history: Smoking status: Patient states was never smoker of tobacco. No barriers to communication noted, The patient speaks fluent Yoruba, Speaks appropriately for age. - Family history: Not pertinent. - : The pt / caregiver states he / she is not on anticoagulants. Home medication list is obtained from [employer] import data. - Exposure Risk Screening:: None identified. 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 3 in. (160.02 cm); 06:00 BP 119 / 56 RA Supine (auto/reg); Pulse 93 MON; Resp 20 S; Temp 98.3(TE); Pulse Ox 96% cln on R/A; Pain 3/10; 09:17 BP 105 / 70; Pulse 99; Resp 18; Temp 98.7(O); Pulse Ox 95% on R/A; Pain 3/10; nb2 10:47 BP 99 / 55; Pulse 109; Resp 18; Temp 98.6(O); Pulse Ox 95% on R/A; Pain 2/10; nb2 01:31 Body Mass Index 28.70 (73.48 kg, 160.02 cm) cz MDM: 03:20 Financial registration complete. [facility] 03:28 IV Saline Lock ordered. cs11 03:28 NS 0.9% 1000 ml IV at bolus once ordered. cs11 03:28 Dilaudid - HYDROmorphone 1 mg IVP once ordered. cs11 03:29 CBC with Diff Ordered. EDMS 03:29 MED Profile Ordered. EDMS 03:29 Liver Profile Ordered. EDMS 03:29 Amylase Ordered. EDMS 03:29 Lipase Ordered. EDMS 03:29 Urinalysis Ordered. EDMS 03:29 Urine Culture Ordered. EDMS 03:29 Lactic Acid (Oakes tube on ice) Ordered. EDMS 03:49 [facility] Payment Agreement was scanned into [employer] and attached to record. slh 04:25 CBC with Diff Reviewed. cs11 04:25 Liver Profile Reviewed. cs11 04:25 Urinalysis Reviewed. cs11 04:25 MED Profile Reviewed. cs11 04:25 Amylase Reviewed. cs11 04:25 Lipase Reviewed. cs11 04:25 Lactic Acid (Oakes tube on ice) Reviewed. cs11 04:27 CT ABD & PELVIS: IV Contrast Only Ordered. EDMS 06:58 BED REQUEST+ADM ordered. EDMS 06:59 metroNIDAZOLE 500 mg IVPB at 100 mL/hr once over 60 mins ordered. cs11 06:59 Ciprofloxacin 400 mg IVPB at 200 mL/hr once over 60 mins ordered. cs11 08:50 Admission / Observation Status ordered. EDMS 08:50 NPO DIET ordered. EDMS 09:12 NS 0.9% 1000 ml IV at 80 mL/hr continuous ordered. srm 09:13 morphine 2 mg IVP once ordered. srm 09:13 Ondansetron 4 mg IVP once ordered. srm 19:32 T-Sheet-- Draft Copy was scanned into [employer] and attached to record. klr Administered Medications: 03:48 Drug: NS 0.9% 1000 ml [sodium chloride 0.9 % intravenous solution] Route: IV; Rate: js15 bolus; Site: left antecubital; 05:24 Follow up: IV Status: Completed infusion; IV Intake: 1000ml ko2 03:48 Drug: Dilaudid - HYDROmorphone 1 mg [hydromorphone 1 mg/mL injection syringe (1 mL)] js15 Route: IVP; Site: left antecubital; 07:06 Drug: Ciprofloxacin 400 mg [ciprofloxacin 400 mg/200 mL in 5 % dextrose intravenous pml piggyback] Route: IVPB; Rate: 200 mL/hr; Infused Over: 60 mins; Site: left antecubital; 08:06 Follow up: IV Status: Completed infusion [facility] 09:08 Follow up: IV Status: Completed infusion [facility] 08:06 Drug: metroNIDAZOLE 500 mg [metronidazole 500 mg/100 mL-sodium chloride(iso) srm intravenous piggyback] Route: IVPB; Rate: 100 mL/hr; Infused Over: 60 mins; Site: left antecubital; 09:08 Drug: NS 0.9% 1000 ml [sodium chloride 0.9 % intravenous solution] Route: IV; Rate: 80 srm mL/hr; Site: left antecubital; 09:08 Drug: Ondansetron 4 mg [ondansetron HCl 2 mg/mL intravenous solution (2 mL)] Route: srm IVP; Site: left antecubital; 09:09 Drug: morphine 2 mg [morphine 2 mg/mL intravenous cartridge (1 mL)] Route: IVP; Site: [facility] left antecubital; Signatures: Dispatcher [employer] EDEliezer Meléndez RN RN Dayami Paulson RN RN [facility] Alejandro Og, RN RN cz Imelda Morse, PHARMACY TECHNICIAN PHARMACY TECHNICIAN ar3 Samm Harris, DO ALBRECHT cs11 Johanna Trimble Kitty Jim Paulina RN [facility] Lucia Jay RN ko2 Marjorie Moncada RN js15 The chart was reviewed and I authenticate all verbal orders and agree with the evaluation and treatment provided.Attachments: 03:49 [facility] Payment Agreement [facility] 19:32 T-Sheet-- Draft Copy [email or web address] Chart Complete [facility]
--- NOTE | 2016-06-11 11:56 | EDDOCDS ---
Nurse's Notes [facility] Name: Melida Welch Age: 46 yrs Sex: Female : 1970 Arrival Date: 06/09/2016 Time: 01:14 Bed 6 Private MD: Diagnosis: Diverticulitis of large intestine without perforation or abscess without bleeding Presentation: 06/09 01:29 Presenting complaint: Patient states: abdominal pain since Friday gradually getting cz worse vomiting when attempting to eat. last b.m. one week ago used magnesium citrate without relief. Risk factors: the patient reports no vaginal bleeding. Adult Sepsis Screening: The patient does not have new or worsening altered mentation. Patient has a respiratory rate of greater than or equal to 22 (1 point). Systolic blood pressure is greater than 100. Patient has a qSOFA score of 0- Negative Sepsis Screen. Suicide/Homicide risk assessment- the patient denies having any suicidal and/or homicidal ideations and does not present with any other emotional, behavioral or mental health complaints. Status: Patient is not a service desk specialist or dependent. Transition of care: patient was not received from another setting of care. 01:29 Acuity: KATY Level 3 cz 01:29 Method Of Arrival: Walkin/Carried/Asstd cz Triage Assessment: 01:31 General: Appears distressed, uncomfortable. Pain: Location: abdomen Pain currently is cz 10 out of 10 on a pain scale. HIV screening NA for this visit Offered previously. 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 aspirin 81 mg Oral chew 2 tabs once daily - PMHx: Diverticulitis; Migraines; Psoriasis; Shingles; - PSHx: Tubal ligation; Appendectomy; - Social history: Smoking status: Patient states was never smoker of tobacco. No barriers to communication noted, The patient speaks fluent Romanian, Speaks appropriately for age. - Family history: Not pertinent. - : The pt / caregiver states he / she is not on anticoagulants. Home medication list is obtained from [employer] import data. - Exposure Risk Screening:: None identified. Screenin:55 Screening information is obtained from the patient. Fall risk: No risks identified. js15 Assistance ADL's: requires no assistance with activities of daily living. Abuse/DV Screen: The patient / caregiver reports he/she is: not in a situation that causes fear, pain or injury. Nutritional screening: No deficits noted. Advance Directives: There is no active DNR order. home support is adequate. Assessment: 03:15 General: Appears distressed, uncomfortable, Behavior is crying. Pain: Location: abdomen js15 Pain currently is 10 out of 10 on a pain scale. Neurological: Level of Consciousness is awake, alert, obeys commands, Oriented to person, place, time. Cardiovascular: Capillary refill < 3 seconds. Respiratory: Airway is patent Respiratory effort is even, unlabored, Respiratory pattern is regular, symmetrical. GI: Abdomen is distended, Bowel sounds present X 4 quads. Abd is tender to palpation in abdomen diffusely firm. Derm: Skin is pink, warm & dry. 04:30 Reassessment: Patient appears in no apparent distress at this time. Pt resting on js15 stretcher, respirations even and unlabored; skin pink, warm, dry. 05:55 Reassessment: Patient appears in no apparent distress at this time. Patient denies pain js15 at this time. Patient states feeling better. Patient states symptoms have improved. Pt resting on stretcher with eyes closed; significant other at bedside; respirations even and unlabored; skin pink, warm, dry. 06:56 General: Appears in no apparent distress, to be sleeping. Respiratory: Airway is patent js15 Respiratory effort is even, unlabored, Respiratory pattern is regular, symmetrical. Derm: Skin is pink, warm & dry. 07:26 General: Appears in no apparent distress, Behavior is appropriate for age, cooperative. srm Neurological: No deficits noted. EENT: No deficits noted. Cardiovascular: Heart tones present. Respiratory: Airway is patent Respiratory effort is even, unlabored, Breath sounds are clear bilaterally. GI: Abdomen is distended, Bowel sounds present X 4 quads. Abd is soft X 4 quads Abd is tender to palpation X 4 quads. 08:23 General: pt resting on stretcher. nausea comes and goes. awaiting admitting MD to patricia srm pt. pt states she really doesn't want to be admitted. encouraged her to inform admitting MD when they arrive. 09:14 General: Appears uncomfortable, Behavior is appropriate for age, cooperative. srm Neurological: No deficits noted. Cardiovascular: Capillary refill < 3 seconds in bilateral fingers. Respiratory: No deficits noted. GI: Abdomen is distended, Bowel sounds present X 4 quads. Abd is tender to palpation X 4 quads. Reports lower abdominal pain, nausea. 10:46 General: Appears in no apparent distress, Behavior is appropriate for age, cooperative. srm Neurological: No deficits noted. :. Derm: Skin is pale. Vital Signs: 01:31 BP 164 / 91; Pulse 144; Resp 22; Temp 97(O); Pulse Ox 97% on R/A; Weight 73.48 kg; cz Height 5 ft. 3 in. (160.02 cm); 06:00 BP 119 / 56 RA Supine (auto/reg); Pulse 93 MON; Resp 20 S; Temp 98.3(TE); Pulse Ox 96% cln on R/A; Pain 3/10; 09:17 BP 105 / 70; Pulse 99; Resp 18; Temp 98.7(O); Pulse Ox 95% on R/A; Pain 3/10; nb2 10:47 BP 99 / 55; Pulse 109; Resp 18; Temp 98.6(O); Pulse Ox 95% on R/A; Pain 2/10; nb2 01:31 Body Mass Index 28.70 (73.48 kg, 160.02 cm) Vitals: 01:31 Log In Time: June 09, 2016 at 01:14. ED Course: 01:16 Patient visited by Quynh Aguilar. gjb 01:16 Patient moved to Waiting gjb 01:22 Patient moved to Triage 1 cz 01:30 Triage Initiated 01:33 Patient moved to 6 cz 02:33 Patient visited by Rika Castillo PCA. solomon 03:08 Samm Harris DO is Attending Physician. cs11 03:08 Patient visited by Samm Harris DO. cs11 03:40 Inserted saline lock: 20 gauge in left antecubital area The patient tolerated the js15 procedure well. 03:49 [facility] Payment Agreement was scanned into [employer] and attached to record. [facility] 03:54 Lactic Acid (Oakes tube on ice) Sent. js15 04:21 Patient visited by Marjorie Moncada RN. js15 05:39 Patient visited by Marjorie Moncada RN. js15 06:01 Patient visited by Ginger Barroso PCA. cln 06:56 Patient visited by Marjorie Moncada,MONICA. js15 07:06 Report received from Kristy Moncada rn. srm 07:07 CT ABD & PELVIS: IV Contrast Only Returned. EDMS 07:12 Sulaiman Terrazas is Hospitalizing Provider. cs11 07:28 Patient visited by Dayami Parker RN. srm 07:28 The patient / caregiver is instructed regarding the plan of care and ED course. srm 07:43 Edward Crawford MD is Hospitalizing Provider. cs11 08:12 Citlaly Pemberton economist research assistant. ys2 08:24 Patient visited by Dayami Parker RN. srm 08:31 Patient visited by Dayami Parker RN. srm 09:16 Patient visited by Dayami Parker RN. srm 09:16 ATTEMPTED TO CALL REPORT NOONE ANSWERED THE PHONE. srm 09:17 Patient visited by Dayami Parker RN. srm 09:17 Patient visited by Stephany Mon. nb2 10:36 Patient visited by Eliezer Cha RN. bcj 10:47 Patient visited by Stephany Mon. nb2 10:53 No procedures done that require assistance. srm 19:32 T-Sheet-- Draft Copy was scanned into [employer] and attached to record. klr Administered Medications: 03:48 Drug: NS 0.9% 1000 ml [sodium chloride 0.9 % intravenous solution] Route: IV; Rate: js15 bolus; Site: left antecubital; 05:24 Follow up: IV Status: Completed infusion; IV Intake: 1000ml ko2 03:48 Drug: Dilaudid - HYDROmorphone 1 mg [hydromorphone 1 mg/mL injection syringe (1 mL)] js15 Route: IVP; Site: left antecubital; 07:06 Drug: Ciprofloxacin 400 mg [ciprofloxacin 400 mg/200 mL in 5 % dextrose intravenous pml piggyback] Route: IVPB; Rate: 200 mL/hr; Infused Over: 60 mins; Site: left antecubital; 08:06 Follow up: IV Status: Completed infusion srm 09:08 Follow up: IV Status: Completed infusion srm 08:06 Drug: metroNIDAZOLE 500 mg [metronidazole 500 mg/100 mL-sodium chloride(iso) srm intravenous piggyback] Route: IVPB; Rate: 100 mL/hr; Infused Over: 60 mins; Site: left antecubital; 09:08 Drug: NS 0.9% 1000 ml [sodium chloride 0.9 % intravenous solution] Route: IV; Rate: 80 srm mL/hr; Site: left antecubital; 09:08 Drug: Ondansetron 4 mg [ondansetron HCl 2 mg/mL intravenous solution (2 mL)] Route: srm IVP; Site: left antecubital; 09:09 Drug: morphine 2 mg [morphine 2 mg/mL intravenous cartridge (1 mL)] Route: IVP; Site: srm left antecubital; Intake: 05:24 IV: 1000.00ml; Total: 1000.00ml. ko2 09:14 IV: 300.00ml; Total: 1300.00ml. srm 10:53 IV: 250.00ml; Total: 1550.00ml. srm 09:14 IV ANTIBIOTICS srm Order Results: Lab Order: CBC with Diff; SPEC'M 06/09/16 03:19 Test: WHITE BLOOD COUNT; Value: 7.6; Range: 4.0-10.0; Units: K/mm3; Status: F Test: RED BLOOD COUNT; Value: 4.31; Range: 4.00-5.40; Units: M/mm3; Status: F Test: HEMOGLOBIN; Value: 10.6; Range: 12.0-16.0; Abnormal: Below low normal; Units: g/dl; Status: F Test: HEMATOCRIT; Value: 34.0; Range: 36.0-47.0; Abnormal: Below low normal; Units: %; Status: F Test: MEAN CORPUSCULAR VOLUME; Value: 78.8; Range: 80.0-96.0; Abnormal: Below low normal; Units: fl; Status: F Test: MEAN CORPUSCULAR HEMOGLOBIN; Value: 24.6; Range: 27.0-33.0; Abnormal: Below low normal; Units: pg; Status: F Test: MEAN CORPUSCULAR HGB CONC; Value: 31.3; Range: 32.0-36.5; Abnormal: Below low normal; Units: g/dl; Status: F Test: RED CELL DISTRIBUTION WIDTH; Value: 17.0; Range: 11.5-14.5; Abnormal: Above high normal; Units: %; Status: F Test: PLATELET COUNT, AUTOMATED; Value: 467; Range: 150-450; Abnormal: Above high normal; Units: k/mm3; Status: F Test: NEUTROPHILS %; Value: 75.2; Range: 36.0-66.0; Abnormal: Above high normal; Units: %; Status: F Test: LYMPH %; Value: 14.3; Range: 24.0-44.0; Abnormal: Below low normal; Units: %; Status: F Test: MONO %; Value: 6.4; Range: 0.0-5.0; Abnormal: Above high normal; Units: %; Status: F Test: EOS %; Value: 1.6; Range: 0.0-3.0; Units: %; Status: F Test: BASO %; Value: 0.5; Range: 0.0-1.0; Units: %; Status: F Test: LARGE UNSTAINED CELL %; Value: 2.0; Range: 0.0-4.0; Units: %; Status: F Test: NEUTROPHILS #; Value: 5.7; Range: 1.8-7.7; Units: K/mm3; Status: F Test: LYMPH #; Value: 1.1; Range: 1.5-4.5; Abnormal: Below low normal; Units: K/mm3; Status: F Test: MONO #; Value: 0.5; Range: 0.0-0.8; Units: K/mm3; Status: F Test: EOS #; Value: 0.1; Range: 0.0-0.50; Units: K/mm3; Status: F Test: BASO #; Value: 0.0; Range: 0.0-0.2; Units: K/mm3; Status: F Test: LARGE UNSTAINED CELL #; Value: 0.2; Range: 0.0-0.4; Units: K/mm3; Status: F Lab Order: [facility] Profile; SPEC'M 06/09/16 03:19 Test: GLUCOSE, FASTING; Value: 102; Range: 70-105; Units: MG/DL; Status: F Test: BLOOD UREA NITROGEN; Value: 11; Range: 7-18; Units: MG/DL; Status: F Test: CREATININE FOR GFR; Value: 0.97; Range: 0.55-1.02; Units: MG/DL; Status: F Test: GLOMERULAR FILTRATION RATE; Value: > 60.0; Range: >58; Status: F Test: SODIUM LEVEL; Value: 142; Range: 136-145; Units: MEQ/L; Status: F Test: POTASSIUM SERUM; Value: 3.5; Range: 3.5-5.1; Units: MEQ/L; Status: F Test: CHLORIDE LEVEL; Value: 107; Range: 98-107; Units: MEQ/L; Status: F Test: CARBON DIOXIDE LEVEL; Value: 26; Range: 21-32; Units: MEQ/L; Status: F Test: ANION GAP; Value: 9; Range: 8-16; Units: MEQ/L; Status: F Test: CALCIUM LEVEL; Value: 9.1; Range: 8.5-10.1; Units: MG/DL; Status: F Test Note: ; Units are mL/min/1.73 m2 Chronic Kidney Disease Staging per NKF: Stage I & II GFR >=60 Normal to Mildly Decreased Stage III GFR 30-59 Moderately Decreased Stage IV GFR 15-29 Severely Decreased Stage V GFR <15 Very Little GFR Left ESRD GFR <15 on REEL FILM INSPECTOR Lab Order: Liver Profile; SPEC'M 06/09/16 03:19 Test: AST/SGOT; Value: 9; Range: 15-37; Abnormal: Below low normal; Units: U/L; Status: F Test: ALT/SGPT; Value: 16; Range: 12-78; Units: U/L; Status: F Test: ALKALINE PHOSPHATASE; Value: 69; Range: 45-117; Units: U/L; Status: F Test: BILIRUBIN,TOTAL; Value: 0.5; Range: 0.2-1.0; Units: MG/DL; Status: F Test: BILIRUBIN,DIRECT; Value: < 0.1; Range: 0.0-0.2; Units: MG/DL; Status: F Test: TOTAL PROTEIN; Value: 8.0; Range: 6.4-8.2; Units: GM/DL; Status: F Test: ALBUMIN; Value: 3.8; Range: 3.2-5.2; Units: GM/DL; Status: F Test: ALBUMIN/GLOBULIN RATIO; Value: 0.90; Range: 1.00-1.93; Abnormal: Below low normal; Status: F Lab Order: Amylase; SPEC'M 06/09/16 03:19 Test: AMYLASE; Value: 53; Range: 25-115; Units: U/L; Status: F Lab Order: Lipase; SPEC' 06/09/16 03:19 Test: LIPASE; Value: 160; Range: 73-393; Units: U/L; Status: F Lab Order: Urinalysis; SPEC' 06/09/16 03:54 Test: APPEARANCE, URINE; Value: CLEAR; Range: CLEAR; Status: F Test: COLOR, URINE; Value: YELLOW; Range: YELLOW; Status: F Test: PH,URINE; Value: 5.0; Range: 5.0-9.0; Units: UNITS; Status: F Test: SPECIFIC GRAVITY URINE AUTO; Value: 1.026; Range: 1.002-1.035; Status: F Test: PROTEIN, URINE AUTO; Value: NEGATIVE; Range: NEGATIVE; Units: mg/dL; Status: F Test: GLUCOSE, URINE (UA) AUTO; Value: NEGATIVE; Range: NEGATIVE; Units: mg/dL; Status: F Test: KETONE, URINE AUTO; Value: NEGATIVE; Range: NEGATIVE; Units: mg/dL; Status: F Test: UROBILINOGEN, URINE AUTO; Value: 0.2; Range: 0.0-2.0; Units: mg/dL; Status: F Test: BILIRUBIN, URINE AUTO; Value: NEGATIVE; Range: NEGATIVE; Status: F Test: NITRITE, URINE AUTO; Value: NEGATIVE; Range: NEGATIVE; Status: F Test: LEUKOCYTE ESTERASE, URINE AUTO; Value: NEGATIVE; Range: NEGATIVE; Status: F Test: BLOOD, URINE BLOOD; Value: NEGATIVE; Range: NEGATIVE; Status: F Test: WBC, URINE AUTO; Value: 2; Range: 0-3; Units: /HPF; Status: F Test: RBC, URINE AUTO; Value: 1; Range: 0-3; Units: /HPF; Status: F Test: BACTERIA, URINE AUTO; Value: 1+; Range: NEGATIVE; Abnormal: Above high normal; Status: F Test: SQUAMOUS EPITHELIAL CELL UR AU; Value: 7; Range: 0-6; Units: /HPF; Status: F Test: MUCUS, URINE; Value: SMALL; Range: NEGATIVE; Status: F Test: HYALINE CAST, URINE AUTO; Value: 0; Range: 0-1; Units: /LPF; Status: F Lab Order: Lactic Acid (Oakes tube on ice); SPEC'M 06/09/16 03:52 Test: LACTIC ACID LEVEL, LACTATE; Value: 0.6; Range: 0.4-2.0; Units: MMOL/L; Status: F Radiology Order: CT ABD & PELVIS: IV Contrast Only Test: CT ABD & PELVIS: IV Contrast Only REASON FOR EXAMINATION: Abdomen Pain; ; CLINICAL HISTORY: Abdominal pain.; TECHNIQUE: Multiple axial, sagittal and coronal CT images were obtained through the abdomen and pelvi; s after administration of intravenous contrast material.; COMMENTS:; Comparison is made to the prior exam performed on 04/28/2016.; The liver is of uniform attenuation without mass or defect. There is no intra or extrahepatic biliary; ductal dilatation. The spleen is normal. The gallbladder is within normal limits. The pancreas is of; normal contour and attenuation characteristics. There is no evidence of adrenal mass.; Both kidneys demonstrate prompt and equal nephrograms. The kidneys are normal in size, shape and conf; iguration. There is no evidence of renal or ureteral mass. No renal or ureteral calculi are identifie; d. There is no hydroureter or hydronephrosis.; No evidence for appendicitis. No evidence for small or large bowel obstruction.; There is no evidence of intrinsic or extrinsic bladder mass. Unchanged thickened bladder. Increased d; iffuse sigmoid wall thickening. Mild increase in surrounding free fluid and fat stranding.; Images of the lung bases show no evidence of pleural or parenchymal mass. There are no pleural effusi; ons.; The bony structures are free of lytic or blastic lesions. Multilevel degenerative changes are seen in; volving the thoracolumbar spine. Scattered calcifications are seen involving the aorta and major bran; ches compatible with atherosclerosis.; IMPRESSION:; Sigmoid colitis/diverticulitis. This has increased.; Increased free fluid.; No perforation or abscess formation.; Unchanged cystitis.; Thank you for your kind referral of this patient.; ; Outcome: 07:12 Decision to Hospitalize by Provider. cs11 10:53 Discharge Assessment: Patient awake, alert and oriented x 3. No cognitive and/or srm functional deficits noted. Patient verbalized understanding of disposition instructions. patient administered narcotics - yes. Patient was admitted to the hospital or transferred to another facility. The following High Risk Discharge criteria are identified: None. Admitted to Med/Surg accompanied by tech, via stretcher, with chart. Condition: stable. CT Study completed. Property :Personal belongings accompany Pt. 10:55 Patient left the ED. srm Signatures: Dispatcher [employer] EDMS Eilezer Cha, RN RN Dayami Paulson RN RN srm Zecher, Calvin, RN MONICA cz Rika Castillo, CEMENTER MACHINE CEMENTER MACHINE solomon Telma Blankenship,RN RN Samm Lopez, DO cs11 Lucia JayRN RN [email or web address] Johanna Trimble Julia,RN RN js15 Quynh Aguilar, Citlaly ys2 Ginger Barroso, CEMENTER MACHINE CEMENTER MACHINE Kitty Osuna Nicole nb2 Chart Complete MTDD
--- NOTE | 2016-06-11 11:56 | EDDOCDS ---
Physician Documentation [employer] Name: Melida Welch Age: 46 yrs Sex: Female : 1970 Arrival Date: 06/09/2016 Time: 01:14 Bed 6 Private MD: Disposition: 06/09/16 07:12 Hospitalization ordered by Edward Crawford for Inpatient Admission. Preliminary diagnosis is Diverticulitis of large intestine without perforation or abscess without bleeding. - Bed requested for 5 [employer]. - Status is Inpatient Admission. srm - Condition is Stable. - Problem is an ongoing problem. - Symptoms have improved. Historical: - Allergies: Phenergan (hallucination); Reglan (hyperactive); - Home Meds: 1. aspirin 81 mg Oral chew 2 tabs once daily - PMHx: Diverticulitis; Migraines; Psoriasis; Shingles; - PSHx: Tubal ligation; Appendectomy; - Social history: Smoking status: Patient states was never smoker of tobacco. No barriers to communication noted, The patient speaks fluent Croatian, Speaks appropriately for age. - Family history: Not pertinent. - : The pt / caregiver states he / she is not on anticoagulants. Home medication list is obtained from [employer] import data. - Exposure Risk Screening:: None identified. 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 3 in. (160.02 cm); 06:00 BP 119 / 56 RA Supine (auto/reg); Pulse 93 MON; Resp 20 S; Temp 98.3(TE); Pulse Ox 96% cln on R/A; Pain 3/10; 09:17 BP 105 / 70; Pulse 99; Resp 18; Temp 98.7(O); Pulse Ox 95% on R/A; Pain 3/10; nb2 10:47 BP 99 / 55; Pulse 109; Resp 18; Temp 98.6(O); Pulse Ox 95% on R/A; Pain 2/10; nb2 01:31 Body Mass Index 28.70 (73.48 kg, 160.02 cm) cz MDM: 03:20 Financial registration complete[facility] 03:28 IV Saline Lock ordered. cs11 03:28 NS 0.9% 1000 ml IV at bolus once ordered. cs11 03:28 Dilaudid - HYDROmorphone 1 mg IVP once ordered. cs11 03:29 CBC with Diff Ordered. EDMS 03:29 MED Profile Ordered. EDMS 03:29 Liver Profile Ordered. EDMS 03:29 Amylase Ordered. EDMS 03:29 Lipase Ordered. EDMS 03:29 Urinalysis Ordered. EDMS 03:29 Urine Culture Ordered. EDMS 03:29 Lactic Acid (Oakes tube on ice) Ordered. EDMS 03:49 [facility] Payment Agreement was scanned into [employer] and attached to record. slh 04:25 CBC with Diff Reviewed. cs11 04:25 Liver Profile Reviewed. cs11 04:25 Urinalysis Reviewed. cs11 04:25 MED Profile Reviewed. cs11 04:25 Amylase Reviewed. cs11 04:25 Lipase Reviewed. cs11 04:25 Lactic Acid (Oakes tube on ice) Reviewed. cs11 04:27 CT ABD & PELVIS: IV Contrast Only Ordered. EDMS 06:58 BED REQUEST+ADM ordered. EDMS 06:59 metroNIDAZOLE 500 mg IVPB at 100 mL/hr once over 60 mins ordered. cs11 06:59 Ciprofloxacin 400 mg IVPB at 200 mL/hr once over 60 mins ordered. cs11 08:50 Admission / Observation Status ordered. EDMS 08:50 NPO DIET ordered. EDMS 09:12 NS 0.9% 1000 ml IV at 80 mL/hr continuous ordered. srm 09:13 morphine 2 mg IVP once ordered. srm 09:13 Ondansetron 4 mg IVP once ordered. srm 19:32 T-Sheet-- Draft Copy was scanned into [employer] and attached to record. klr Administered Medications: 03:48 Drug: NS 0.9% 1000 ml [sodium chloride 0.9 % intravenous solution] Route: IV; Rate: js15 bolus; Site: left antecubital; 05:24 Follow up: IV Status: Completed infusion; IV Intake: 1000ml ko2 03:48 Drug: Dilaudid - HYDROmorphone 1 mg [hydromorphone 1 mg/mL injection syringe (1 mL)] js15 Route: IVP; Site: left antecubital; 07:06 Drug: Ciprofloxacin 400 mg [ciprofloxacin 400 mg/200 mL in 5 % dextrose intravenous pml piggyback] Route: IVPB; Rate: 200 mL/hr; Infused Over: 60 mins; Site: left antecubital; 08:06 Follow up: IV Status: Completed infusion [facility] 09:08 Follow up: IV Status: Completed infusion [facility] 08:06 Drug: metroNIDAZOLE 500 mg [metronidazole 500 mg/100 mL-sodium chloride(iso) srm intravenous piggyback] Route: IVPB; Rate: 100 mL/hr; Infused Over: 60 mins; Site: left antecubital; 09:08 Drug: NS 0.9% 1000 ml [sodium chloride 0.9 % intravenous solution] Route: IV; Rate: 80 srm mL/hr; Site: left antecubital; 09:08 Drug: Ondansetron 4 mg [ondansetron HCl 2 mg/mL intravenous solution (2 mL)] Route: srm IVP; Site: left antecubital; 09:09 Drug: morphine 2 mg [morphine 2 mg/mL intravenous cartridge (1 mL)] Route: IVP; Site: [facility] left antecubital; Signatures: Dispatcher [employer] EDEliezer Meléndez RN RN Dayami Paulson RN RN [facility] Alejandro Og, RN RN cz Imelda Morse, VULCANIZED FIBER UNIT OPERATOR VULCANIZED FIBER UNIT OPERATOR ar3 Samm Harris, DO ALBRECHT cs11 Johanna Trimble Kitty Jim Paulina RN [facility] Lucia Jay RN ko2 Marjorie Moncada RN js15 The chart was reviewed and I authenticate all verbal orders and agree with the evaluation and treatment provided.Attachments: 03:49 [facility] Payment Agreement [facility] 19:32 T-Sheet-- Draft Copy [email or web address] Chart Complete [facility]
[2016-06-11 16:00] VITALS: BP 96/52
[2016-06-11 20:00] VITALS: BP 113/59
[2016-06-11] MEDS: ONDANSETRON 4MG/2ML VIAL (J2405) IV PRN (20:41)
[2016-06-12] VITALS: BP 121/69
[2016-06-12] MEDS: PERCOCET 5MG/325MG TAB PO PRN (00:27)
[2016-06-12] MEDS: CEFEPIME HCL 2 GM in D5W MINI-BAG PLUS 50 ML IV SCH (02:36)
[2016-06-12] MEDS: metroNIDAZOLE 500 MG in APPROPRIATE DILUENT 1 EA IV SCH ×2 (03:31→11:41)
[2016-06-12] MEDS: NS 1,000 ML IV SCH (03:31)
[2016-06-12] MEDS: HEPARIN SOD (PORCINE) 5000 UNITS/ML VIAL SC SCH (06:00)
[2016-06-12 08:00] VITALS: BP 114/73
[2016-06-12 08:15] LABS: ANION GAP 6 MEQ/L (8-16); BLOOD UREA NITROGEN 8 MG/DL (7-18); CALCIUM LEVEL 8.8 MG/DL (8.5-10.1); CARBON DIOXIDE LEVEL 28 MEQ/L (21-32); CHLORIDE LEVEL 111 MEQ/L (98-107); CREATININE FOR GFR 0.79 MG/DL (0.55-1.02); GLOMERULAR FILTRATION RATE > 60.0 (>58); GLUCOSE, FASTING 97 MG/DL (70-105); POTASSIUM SERUM 3.9 MEQ/L (3.5-5.1); SODIUM LEVEL 145 MEQ/L (136-145)
[2016-06-12 08:42] LABS: MEAN CORPUSCULAR HEMOGLOBIN 24.3 pg (27.0-33.0); MEAN CORPUSCULAR HGB CONC 30.6 g/dl (32.0-36.5); MEAN CORPUSCULAR VOLUME 79.6 fl (80.0-96.0); RED CELL DISTRIBUTION WIDTH 16.6 % (11.5-14.5); WHITE BLOOD COUNT 5.2 K/mm3 (4.0-10.0)
[2016-06-12] MEDS ORDERED: INFLUENZA QUADRIVALENT PF VACCINE 0.5ML SYRINGE/VIAL (90686) IM ONE (09:00)
[2016-06-12] MEDS ORDERED: AUGM875T27 PO (12:10)
[2016-06-12] MEDS ORDERED: COLA100C PO (12:10)
[2016-06-12] MEDS ORDERED: FLAG500T PO (12:10)
--- NOTE | 2016-06-13 07:26 | DSES ---
DATE OF ADMISSION: 06/09/2016 DATE OF DISCHARGE: 06/12/2016 PRIMARY CARE PROVIDER: [facility] FINAL DIAGNOSES: 1. Diverticulitis. 2. History of migraine. 3. History of psoriasis. HISTORY OF PRESENT ILLNESS: This is a 46-year-old patient with underlying medical history of recurring diverticulitis, migraine headache, history of psoriasis, history of shingles, presented to [facility] on 06/09/2016 for worsening left lower abdominal pain with constipation, history of diverticulitis since 2 years ago and the patient has recurrent diverticulitis. Has been seen at [facility] multiple times, including November, January, April for similar symptoms. For the current episode, pain started since 6 days ago with left lower quadrant pain intermittent, worsening with bowel movement or any type of oral intake and pain resolved when the patient is not having oral intake. Pain was sharp, radiating to the back and thigh. Patient also complains about nausea and vomiting associated with the pain. Denies any other associated symptoms. Upon arrival to the emergency room, CT scan was performed showing sigmoid colitis and diverticulitis that is worsening compared to previous imaging. Given intravenous (IV) pain medication. Initially started on Cipro and Flagyl. Subsequently, patient is admitted. HOSPITAL COURSE: Patient is admitted to the hospital. Did not tolerate Cipro very well. Subsequently, antibiotic converted to cefepime and Flagyl. Bowel movements was monitored. Diet was advanced. Patient's home medication were continued. IV hydration was provided. Patient's condition progressively improved. Currently is tolerating oral, in no significant pain. Ready for discharge for further care as outpatient. VITAL SIGNS: Temperature 98.7. Pulse 93. Respiration 18. Blood pressure 114/73. Pulse oximetry 96% on room air. LABORATORY DATA: WBC 5.2, hemoglobin and hematocrit 9.6/31.3, platelets 371. Chemistry: Sodium 145, potassium 3.9, chloride 111, bicarbonate 28, BUN 8, creatinine 0.79. DISCHARGE MEDICATION: - Augmentin 875/125 mg tablets by mouth twice a day - Colace 100 mg by mouth three times a day - Flagyl 500 mg by mouth three times a day for a total of 5 days - Patient's Excedrin were continued twice a day one tablet as needed. DISCHARGE INSTRUCTION: Patient is instructed to followup with primary care provider in 7 days. Consider referral for applied psychology chair after symptom resolve for possible colonoscopy. Return to the hospital if symptoms worsen.
== END 2016-06-12 14:20 | disposition home or self-care (01) | DRG 244 ==
LOC: M ED 01:14 → M MS5PR 08:47 → M ED INP 08:48 → M MS5PR 11:00 → M PED 06-10 13:52
PROVIDERS: ADMIT Internal Medicine; ATTEND Hospitalist
DX: K57.32 Diverticulitis of large intestine without perforation or abscess without bleeding (principal); G43.909 Migraine, unspecified, not intractable, without status migrainosus; L40.9 Psoriasis, unspecified; K52.9 Noninfective gastroenteritis and colitis, unspecified; K59.00 Constipation, unspecified; Z79.82 Long term (current) use of aspirin

== ENCOUNTER 2016-08-13 20:10 | Emergency (ER) | payer BC ==
[~2016-08-13] VITALS: Ht 162.6 cm; Wt 70.3 kg
[~2016-08-13 20:10] MED LIST changes: +AUGM875T27 PO; +COLA100C3 PO; +FLAG500T PO
[2016-08-13] MEDS ORDERED: ASPI81TA85 PO (20:24)
[2016-08-13 21:01] LABS: BASO % 0.9 % (0.0-1.0); EOS # 0.2 K/mm3 (0.0-0.50); EOS % 2.9 % (0.0-3.0); LARGE UNSTAINED CELL # 0.2 K/mm3 (0.0-0.4); LARGE UNSTAINED CELL % 3.2 % (0.0-4.0); LYMPH # 1.7 K/mm3 (1.5-4.5); LYMPH % 24.2 % (24.0-44.0); MEAN CORPUSCULAR HEMOGLOBIN 23.8 pg (27.0-33.0); MEAN CORPUSCULAR HGB CONC 30.1 g/dl (32.0-36.5); MEAN CORPUSCULAR VOLUME 79.3 fl (80.0-96.0); MONO # 0.4 K/mm3 (0.0-0.8); MONO % 7.1 % (0.0-5.0); NEUTROPHILS # 3.8 K/mm3 (1.8-7.7); NEUTROPHILS % 61.7 % (36.0-66.0); PLATELET COUNT, AUTOMATED 403 k/mm3 (150-450); RED CELL DISTRIBUTION WIDTH 16.2 % (11.5-14.5); WHITE BLOOD COUNT 6.1 K/mm3 (4.0-10.0)
[2016-08-13 21:22] LABS: ALBUMIN 3.8 GM/DL (3.2-5.2); ALBUMIN/GLOBULIN RATIO 1.15 (1.00-1.93); ALKALINE PHOSPHATASE 75 U/L (45-117); ALT/SGPT 24 U/L (12-78); AMYLASE 87 U/L (25-115); ANION GAP 7 MEQ/L (8-16); AST/SGOT 14 U/L (15-37); BILIRUBIN,DIRECT 0.1 MG/DL (0.0-0.2); BILIRUBIN,TOTAL 0.5 MG/DL (0.2-1.0); BLOOD UREA NITROGEN 9 MG/DL (7-18); CALCIUM LEVEL 8.9 MG/DL (8.5-10.1); CARBON DIOXIDE LEVEL 26 MEQ/L (21-32); CHLORIDE LEVEL 109 MEQ/L (98-107); CREATININE FOR GFR 0.89 MG/DL (0.55-1.02); GLOMERULAR FILTRATION RATE > 60.0 (>58); GLUCOSE, FASTING 124 MG/DL (70-105); POTASSIUM SERUM 3.5 MEQ/L (3.5-5.1); SODIUM LEVEL 142 MEQ/L (136-145); TOTAL PROTEIN 7.1 GM/DL (6.4-8.2)
[2016-08-13] MEDS ORDERED: ISOVUE-370 76% 100ML VIAL (Q9967) As Ordered ONE (22:28)
--- NOTE | 2016-08-13 23:00 | REPUSA ---
CT angiogram of the chest Clinical statement: Chest pain. Technique: Multiple axial CT images were obtained from the thoracic inlet through the upper abdomen a fter a bolus administration of nonionic intravenous contrast. Coronal and sagittal reconstructions we re also obtained. No comparison is available. Findings: The pulmonary arteries are well-opacified with contrast, with no intraluminal filling defec ts to suggest embolism. The thoracic aorta is unremarkable. Thyroid gland is within normal limits. Th ere is no thoracic lymphadenopathy. There are no pericardial or pleural effusions. The lungs are kyler r. Limited imaging of the upper abdomen is unremarkable. There are no suspicious osseous lesions. Impression: Unremarkable CT examination of the chest. No evidence of pulmonary embolism.
[2016-08-13] MEDS ORDERED: GI COCKTAIL 50ML BTL(HYOSCYAMINE/MAALOX/LIDOCAINE VISCOUS)(1:3:1) PO ONE (23:15)
[2016-08-14] MEDS ORDERED: PRIL20CA9 PO (01:08)
[2016-08-14 01:17] VITALS: BP 114/60
--- NOTE | 2016-08-14 05:53 | ECGEPIP ---
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
--- NOTE | 2016-08-14 08:03 | REP ---
Clinical: Chest pain . Comparison: 08/09/2015 . Technique: PA and lateral. Findings: The mediastinum and cardiac silhouette are normal. The lung love are clear and without acute consolidation, effusion, or pneumothorax. The skeletal structures are intact and normal. Impression: 1. No acute cardiopulmonary process. Signed by Ilir Powell MD 08/14/2016 07:55 A
--- NOTE | 2016-08-15 07:19 | ECGEPIP ---
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
== END 2016-08-14 01:33 | disposition home or self-care (01) ==
LOC: M ED 21:21
DX: K21.9 Gastro-esophageal reflux disease without esophagitis (principal); R00.0 Tachycardia, unspecified; M54.9 Dorsalgia, unspecified; K57.92 Diverticulitis of intestine, part unspecified, without perforation or abscess without bleeding; Z88.8 Allergy status to other drugs, medicaments and biological substances; Z79.82 Long term (current) use of aspirin
CPT/HCPCS: 71020; 71275; 80048; 80076; 82150; 82550; 82553; 83690; 85025; 93005; 99283; Q9967

== ENCOUNTER → 2016-10-23 | Outpatient (CLI) | payer BC ==
[~2016-10-23] MED LIST changes: +ASPI81TA85 PO; +PRIL20CA9 PO
[2016-10-23 09:03] LABS: BASO % 0.8 % (0.0-1.0); EOS # 0.1 K/mm3 (0.0-0.50); EOS % 2.9 % (0.0-3.0); LARGE UNSTAINED CELL # 0.1 K/mm3 (0.0-0.4); LARGE UNSTAINED CELL % 1.7 % (0.0-4.0); LYMPH # 1.3 K/mm3 (1.5-4.5); LYMPH % 26.7 % (24.0-44.0); MEAN CORPUSCULAR HEMOGLOBIN 24.3 pg (27.0-33.0); MEAN CORPUSCULAR HGB CONC 30.5 g/dl (32.0-36.5); MEAN CORPUSCULAR VOLUME 79.7 fl (80.0-96.0); MONO # 0.4 K/mm3 (0.0-0.8); NEUTROPHILS # 2.7 K/mm3 (1.8-7.7); NEUTROPHILS % 59.8 % (36.0-66.0); PLATELET COUNT, AUTOMATED 296 k/mm3 (150-450); RED CELL DISTRIBUTION WIDTH 16.8 % (11.5-14.5); WHITE BLOOD COUNT 4.5 K/mm3 (4.0-10.0)
[2016-10-23 09:44] LABS: CHOLESTEROL LEVEL 179 MG/DL (<200); TRIGLYCERIDES LEVEL 93 MG/DL (<150)
[2016-10-23 10:00] LABS: ERYTHROCYTE SEDIMENTATION RATE 17 mm/hr (0-20)
== END ==
LOC: M LAB 08:17
PROVIDERS: ATTEND Family Medicine Addiction Medicine
DX: Z00.01 Encounter for general adult medical examination with abnormal findings (principal); M25.659 Stiffness of unspecified hip, not elsewhere classified; R52 Pain, unspecified

== ENCOUNTER 2017-02-25 15:50 | Emergency (ER) | payer BC ==
[~2017-02-25] VITALS: Ht 160 cm; Wt 70.5 kg
[~2017-02-25 15:50] MED LIST changes: -AUGM875T27 PO; +AUGM875T28 PO; -COLA100C3 PO; +COLA100C5 PO
[2017-02-25] MEDS ORDERED: KETOROLAC 60 MG/2 ML VIAL (J1885) IM ONE (17:00)
[2017-02-25] MEDS ORDERED: ANAP550T PO (17:38)
--- NOTE | 2017-02-25 17:44 | REP ---
LEFT SHOULDER, THREE VIEWS: HISTORY: Trauma. There is no acute fracture or dislocation. The joint spaces are normal in appearance. IMPRESSION: There is no acute fracture or dislocation. Signed by Lane Molina MD 02/25/2017 05:46 P
[2017-02-25 18:02] VITALS: BP 113/73
== END 2017-02-25 18:03 | disposition home or self-care (01) ==
LOC: M ED 15:50
DX: S43.52XA Sprain of left acromioclavicular joint, initial encounter (principal); W01.198A Fall on same level from slipping, tripping and stumbling with subsequent striking against other object, initial encounter; Y92.89 Other specified places as the place of occurrence of the external cause; Y93.89 Activity, other specified; Y99.8 Other external cause status; F17.210 Nicotine dependence, cigarettes, uncomplicated; F90.9 Attention-deficit hyperactivity disorder, unspecified type; F33.9 Major depressive disorder, recurrent, unspecified; Z88.8 Allergy status to other drugs, medicaments and biological substances
CPT/HCPCS: 73030; 96372; 99283; J1885

== ENCOUNTER 2017-04-22 21:36 | Emergency (ER) | payer BC ==
[~2017-04-22] VITALS: Ht 162.6 cm; Wt 72.7 kg
[~2017-04-22 21:36] MED LIST changes: +ANAP550T PO
[2017-04-22] MEDS ORDERED: GABA-282 PO (21:42)
[2017-04-22] MEDS ORDERED: DICL50TA2 PO (21:42)
[2017-04-23] MEDS ORDERED: ONDANSETRON 4MG/2ML VIAL (J2405) IV ONE (00:15)
[2017-04-23] MEDS ORDERED: KETOROLAC 30 MG/ML VIAL (J1885) IV ONE (00:15)
[2017-04-23 01:13] LABS: BASO # 0.1 10^3/uL (0.0-0.2); BASO % 0.8 % (0.0-1.0); EOS # 0.1 10^3/uL (0.0-0.50); EOS % 1.5 % (0.0-3.0); IMMATURE GRANULOCYTE % 0.3 % (0-0); LYMPH # 2.1 10^3/uL (1.5-4.5); LYMPH % 31.9 % (24.0-44.0); MEAN CORPUSCULAR HEMOGLOBIN 22.8 pg (27.0-33.0); MEAN CORPUSCULAR HGB CONC 29.7 g/dl (32.0-36.5); MEAN CORPUSCULAR VOLUME 76.7 fl (80.0-96.0); MONO # 0.6 10^3/uL (0.0-0.8); MONO % 9.1 % (0.0-5.0); NEUTROPHILS # 3.7 10^3/uL (1.8-7.7); NEUTROPHILS % 56.4 % (36.0-66.0); PLATELET COUNT, AUTOMATED 342 10^3/uL (150-450); RED CELL DISTRIBUTION WIDTH 15.9 % (11.5-14.5); WHITE BLOOD COUNT 6.6 10^3/uL (4.0-10.0)
[2017-04-23 01:34] LABS: CONTROL LINE HCG INT CTR LINE PRESENT
[2017-04-23 01:37] LABS: AMYLASE 59 U/L (25-115); ANION GAP 6 MEQ/L (8-16); BLOOD UREA NITROGEN 11 MG/DL (7-18); CALCIUM LEVEL 8.9 MG/DL (8.5-10.1); CARBON DIOXIDE LEVEL 25 MEQ/L (21-32); CHLORIDE LEVEL 109 MEQ/L (98-107); CREATININE FOR GFR 0.83 MG/DL (0.55-1.02); GLOMERULAR FILTRATION RATE > 60.0 (>58); GLUCOSE, FASTING 80 MG/DL (70-105); POTASSIUM SERUM 3.8 MEQ/L (3.5-5.1); SODIUM LEVEL 140 MEQ/L (136-145)
[2017-04-23 02:34] VITALS: BP 108/72
--- NOTE | 2017-04-23 02:40 | REPUSA ---
CLINICAL HISTORY: Abdominal pain. TECHNIQUE: Multiple axial, sagittal and coronal CT images were obtained through the abdomen and pelvi s without administration of oral or IV contrast material. COMMENTS: Comparison is made to the prior exam performed on 06/09/2016. Interval appearance of mild diffuse thickening of the mid small bowel loops. Mild splenomegaly measuring 13.5 cm. The liver is of uniform attenuation without mass or defect. There is no intra or extrahepatic biliary ductal dilatation. The spleen is otherwise normal. The gallbladder is within normal limits. The pancreas is of normal contour and attenuation characteri stics. There is no evidence of adrenal mass. The kidneys are normal in size, shape and configuration. No renal or ureteral calculi are identified. There is no hydroureter or hydronephrosis. Prior appendectomy. No evidence for small or large bowel obstruction. There is no evidence of abdomin al ascites or lymphadenopathy. There is no evidence of intrinsic or extrinsic bladder mass. There is no pelvic ascites or lymphadeno oanh. Images of the lung bases show no evidence of pleural or parenchymal mass. There are no pleural effusi ons. The bony structures are free of lytic or blastic lesions. IMPRESSION: Interval appearance of mild diffuse thickening of the mid small bowel loops. Probably developing ente ritis. Mild splenomegaly. Nonspecific. Thank you for your kind referral of this patient.
[2017-04-23] MEDS ORDERED: OXYCODONE/APAP 5MG/325MG(BULK FOR ED) 1 TABLET PO ONE (03:30)
[2017-04-23] MEDS ORDERED: ZOFR4TAB3 PO (03:31)
--- NOTE | 2017-04-23 08:00 | ED PDOC ---
Post-Departure Follow-Up radiology rpeort faxed to Alexa Herron MD Apr 23, 2017 08:00
== END 2017-04-23 03:38 | disposition home or self-care (01) ==
LOC: M ED 21:36
DX: K52.9 Noninfective gastroenteritis and colitis, unspecified (principal); M79.7 Fibromyalgia; F41.9 Anxiety disorder, unspecified; F33.9 Major depressive disorder, recurrent, unspecified; M54.30 Sciatica, unspecified side; Z79.899 Other long term (current) drug therapy; Z88.8 Allergy status to other drugs, medicaments and biological substances; Z87.19 Personal history of other diseases of the digestive system
CPT/HCPCS: 74176; 80048; 81001; 82150; 83690; 84703; 85025; 86140; 96374; 96375; 99284; J1885; J2405

== ENCOUNTER 2017-06-05 08:49 | Inpatient (IN) | payer BC ==
[2017-06-05] MEDS: MULTIVITAMINS/MINERALS THERAP 1 TAB PO (09:00)
[2017-06-05] MEDS: GI COCKTAIL 50ML BTL(HYOSCYAMINE/MAALOX/LIDOCAINE VISCOUS)(1:3:1) PO (09:39)
[2017-06-05] MEDS: MORPHINE 4 MG/ML 1ML SYRINGE IV ×2 (09:40→12:48)
[2017-06-05 09:52] LABS: BASO # 0.1 10^3/uL (0.0-0.2); BASO % 0.9 % (0.0-1.0); EOS # 0.1 10^3/uL (0.0-0.50); EOS % 2.4 % (0.0-3.0); HEMATOCRIT 33.1 % (36.0-47.0); HEMOGLOBIN 9.7 g/dl (12.0-16.0); IMMATURE GRANULOCYTE % 0.3 % (0-0); LYMPH # 1.4 10^3/uL (1.5-4.5); LYMPH % 25.1 % (24.0-44.0); MEAN CORPUSCULAR HEMOGLOBIN 21.7 pg (27.0-33.0); MEAN CORPUSCULAR HGB CONC 29.3 g/dl (32.0-36.5); MEAN CORPUSCULAR VOLUME 74.2 fl (80.0-96.0); MONO # 0.4 10^3/uL (0.0-0.8); MONO % 7.5 % (0.0-5.0); NEUTROPHILS # 3.7 10^3/uL (1.8-7.7); NEUTROPHILS % 63.8 % (36.0-66.0); PLATELET COUNT, AUTOMATED 401 10^3/uL (150-450); RED BLOOD COUNT 4.46 10^6/uL (4.00-5.40); RED CELL DISTRIBUTION WIDTH 17.6 % (11.5-14.5); WHITE BLOOD COUNT 5.7 10^3/uL (4.0-10.0)
[2017-06-05 10:17] LABS: ALBUMIN 3.9 GM/DL (3.2-5.2); ALBUMIN/GLOBULIN RATIO 1.18 (1.00-1.93); ALKALINE PHOSPHATASE 57 U/L (45-117); ALT/SGPT 14 U/L (12-78); ANION GAP 4 MEQ/L (8-16); AST/SGOT 9 U/L (7-37); BILIRUBIN,TOTAL 0.6 MG/DL (0.2-1.0); BLOOD UREA NITROGEN 8 MG/DL (7-18); CARBON DIOXIDE LEVEL 26 MEQ/L (21-32); CHLORIDE LEVEL 110 MEQ/L (98-107); CPK CREATINE PHOSPHOKINASE 73 U/L (26-192); CREATININE FOR GFR 0.76 MG/DL (0.55-1.02); GLOMERULAR FILTRATION RATE > 60.0 (>58); GLUCOSE, FASTING 94 MG/DL (70-105); LIPASE 1829 U/L (73-393); SODIUM LEVEL 140 MEQ/L (136-145); TOTAL PROTEIN 7.2 GM/DL (6.4-8.2); TROPONIN I < 0.02 NG/ML (< 0.10)
[2017-06-05 11:00] LABS: MB/CK RELATIVE INDEX 1.36 (< OR =4)
[2017-06-05] MEDS: NS 1,000 ML IV (12:47)
[2017-06-05] MEDS: GABAPENTIN 300 MG CAP PO ×3 (16:00→21:00)
[2017-06-05] MEDS: MORPHINE 2 MG/ML 1ML SYRINGE IV (18:19)
[2017-06-05] MEDS: LR 1,000 ML IV ×2 (18:20→20:00)
[2017-06-05] MEDS: ONDANSETRON 4MG/2ML VIAL (J2405) IV (20:28)
[2017-06-05] MEDS: HEPARIN SOD (PORCINE) 5000 UNITS/ML VIAL SC (22:00)
[2017-06-06] MEDS: ONDANSETRON 4MG/2ML VIAL (J2405) IV ×2 (01:19→05:21)
[2017-06-06] MEDS: MORPHINE 2 MG/ML 1ML SYRINGE IV ×5 (01:29→23:06)
[2017-06-06] MEDS: LR 1,000 ML IV ×6 (05:05→23:06)
[2017-06-06] MEDS: HEPARIN SOD (PORCINE) 5000 UNITS/ML VIAL SC ×3 (05:41→21:24)
[2017-06-06 06:57] LABS: HEMATOCRIT 27.4 % (36.0-47.0); HEMOGLOBIN 8.1 g/dl (12.0-16.0); MEAN CORPUSCULAR HEMOGLOBIN 21.7 pg (27.0-33.0); MEAN CORPUSCULAR HGB CONC 29.6 g/dl (32.0-36.5); MEAN CORPUSCULAR VOLUME 73.3 fl (80.0-96.0); PLATELET COUNT, AUTOMATED 376 10^3/uL (150-450); RED BLOOD COUNT 3.74 10^6/uL (4.00-5.40); RED CELL DISTRIBUTION WIDTH 17.4 % (11.5-14.5); WHITE BLOOD COUNT 6.2 10^3/uL (4.0-10.0)
[2017-06-06 07:10] LABS: ALBUMIN 3.1 GM/DL (3.2-5.2); ALBUMIN/GLOBULIN RATIO 1.11 (1.00-1.93); ALKALINE PHOSPHATASE 44 U/L (45-117); ALT/SGPT 11 U/L (12-78); ANION GAP 5 MEQ/L (8-16); AST/SGOT 10 U/L (7-37); BILIRUBIN,TOTAL 0.6 MG/DL (0.2-1.0); BLOOD UREA NITROGEN 6 MG/DL (7-18); CALCIUM LEVEL 8.5 MG/DL (8.5-10.1); CARBON DIOXIDE LEVEL 25 MEQ/L (21-32); CHLORIDE LEVEL 111 MEQ/L (98-107); GLOMERULAR FILTRATION RATE > 60.0 (>58); GLUCOSE, FASTING 101 MG/DL (70-105); LIPASE 361 U/L (73-393); MAGNESIUM LEVEL 2.1 MG/DL (1.8-2.4); POTASSIUM SERUM 3.9 MEQ/L (3.5-5.1); SODIUM LEVEL 141 MEQ/L (136-145); TOTAL PROTEIN 5.9 GM/DL (6.4-8.2)
[2017-06-06] MEDS: GABAPENTIN 300 MG CAP PO ×3 (08:42→21:24)
[2017-06-06] MEDS: MULTIVITAMINS/MINERALS THERAP 1 TAB PO (08:42)
[2017-06-06] MEDS ORDERED: METOCLOPRAMIDE INJ 10MG/2ML VIAL (J2765) IV (09:45)
[2017-06-06] MEDS: KETOROLAC 30 MG/ML VIAL (J1885) IV (11:03)
[2017-06-06] MEDS: PANTOPRAZOLE 40MG INJ (PROTONIX) (C9113) IV ×2 (12:10→21:23)
[2017-06-06] MEDS: GASTROGRAFIN SOLUTION 30ML (Q9963) PO (12:30)
[2017-06-06 12:52] LABS: HEMATOCRIT 28.6 % (36.0-47.0); HEMOGLOBIN 8.4 g/dl (12.0-16.0); MEAN CORPUSCULAR HEMOGLOBIN 21.9 pg (27.0-33.0); MEAN CORPUSCULAR HGB CONC 29.4 g/dl (32.0-36.5); MEAN CORPUSCULAR VOLUME 74.7 fl (80.0-96.0); PLATELET COUNT, AUTOMATED 369 10^3/uL (150-450); RED BLOOD COUNT 3.83 10^6/uL (4.00-5.40); RED CELL DISTRIBUTION WIDTH 17.5 % (11.5-14.5); WHITE BLOOD COUNT 7.9 10^3/uL (4.0-10.0)
[2017-06-06] MEDS: GASTROGRAFIN SOLUTION 30ML PO (12:54)
[2017-06-06] MEDS ORDERED: ISOVUE-370 76% 100ML VIAL (Q9967) As Ordered (14:00)
[2017-06-06] MEDS: PROCHLORPERAZINE 10 MG/2 ML VIAL (J0780) IM ×2 (14:47→23:30)
[2017-06-07] MEDS: ACETAMINOPHEN TAB 650MG DOSE (2X325MG) PO ×2 (05:16→18:13)
[2017-06-07 06:40] LABS: HEMATOCRIT 27.4 % (36.0-47.0); MEAN CORPUSCULAR HEMOGLOBIN 21.2 pg (27.0-33.0); MEAN CORPUSCULAR HGB CONC 29.2 g/dl (32.0-36.5); MEAN CORPUSCULAR VOLUME 72.7 fl (80.0-96.0); PLATELET COUNT, AUTOMATED 391 10^3/uL (150-450); RED BLOOD COUNT 3.77 10^6/uL (4.00-5.40); RED CELL DISTRIBUTION WIDTH 17.4 % (11.5-14.5)
[2017-06-07] MEDS: HEPARIN SOD (PORCINE) 5000 UNITS/ML VIAL SC ×3 (06:45→22:00)
[2017-06-07 06:52] LABS: ALBUMIN 3.1 GM/DL (3.2-5.2); ALBUMIN/GLOBULIN RATIO 1.07 (1.00-1.93); ALKALINE PHOSPHATASE 46 U/L (45-117); ALT/SGPT 12 U/L (12-78); ANION GAP 5 MEQ/L (8-16); AST/SGOT 8 U/L (7-37); BILIRUBIN,TOTAL 0.7 MG/DL (0.2-1.0); BLOOD UREA NITROGEN 6 MG/DL (7-18); CALCIUM LEVEL 8.5 MG/DL (8.5-10.1); CARBON DIOXIDE LEVEL 27 MEQ/L (21-32); CHLORIDE LEVEL 107 MEQ/L (98-107); CREATININE FOR GFR 0.63 MG/DL (0.55-1.02); GLOMERULAR FILTRATION RATE > 60.0 (>58); GLUCOSE, FASTING 87 MG/DL (70-105); POTASSIUM SERUM 3.6 MEQ/L (3.5-5.1); SODIUM LEVEL 139 MEQ/L (136-145)
[2017-06-07 08:30] LABS: LIPASE 205 U/L (73-393)
[2017-06-07] MEDS: GABAPENTIN 300 MG CAP PO ×3 (08:35→21:00)
[2017-06-07] MEDS: PANTOPRAZOLE 40MG INJ (PROTONIX) (C9113) IV (08:35)
[2017-06-07] MEDS: MULTIVITAMINS/MINERALS THERAP 1 TAB PO (08:35)
[2017-06-07] MEDS ORDERED: FIORICET TAB PO (10:30)
[2017-06-07] MEDS: FERROUS SULFATE 325MG TAB PO (10:34)
[2017-06-07] MEDS: LR 1,000 ML IV (10:35)
[2017-06-07] MEDS: VITAMIN D 1,000 INTERNATIONAL UNITS TABLET PO (11:58)
[2017-06-07] MEDS: PANTOPRAZOLE 40MG TAB (PROTONIX) PO (20:26)
[2017-06-08] MEDS: MORPHINE 2 MG/ML 1ML SYRINGE IV (04:11)
[2017-06-08] MEDS: KETOROLAC 30 MG/ML VIAL (J1885) IV (05:12)
[2017-06-08 06:53] LABS: HEMATOCRIT 29.1 % (36.0-47.0); HEMOGLOBIN 8.6 g/dl (12.0-16.0); MEAN CORPUSCULAR HEMOGLOBIN 21.3 pg (27.0-33.0); MEAN CORPUSCULAR HGB CONC 29.6 g/dl (32.0-36.5); MEAN CORPUSCULAR VOLUME 72.2 fl (80.0-96.0); PLATELET COUNT, AUTOMATED 459 10^3/uL (150-450); RED BLOOD COUNT 4.03 10^6/uL (4.00-5.40); RED CELL DISTRIBUTION WIDTH 17.7 % (11.5-14.5); WHITE BLOOD COUNT 7.1 10^3/uL (4.0-10.0)
[2017-06-08 07:24] LABS: ALBUMIN 3.5 GM/DL (3.2-5.2); ALBUMIN/GLOBULIN RATIO 1.06 (1.00-1.93); ALKALINE PHOSPHATASE 53 U/L (45-117); ALT/SGPT 21 U/L (12-78); ANION GAP 6 MEQ/L (8-16); AST/SGOT 36 U/L (7-37); BILIRUBIN,TOTAL 0.7 MG/DL (0.2-1.0); BLOOD UREA NITROGEN 9 MG/DL (7-18); CARBON DIOXIDE LEVEL 28 MEQ/L (21-32); CHLORIDE LEVEL 108 MEQ/L (98-107); CREATININE FOR GFR 0.76 MG/DL (0.55-1.02); GLOMERULAR FILTRATION RATE > 60.0 (>58); GLUCOSE, FASTING 85 MG/DL (70-105); POTASSIUM SERUM 3.5 MEQ/L (3.5-5.1); SODIUM LEVEL 142 MEQ/L (136-145); TOTAL PROTEIN 6.8 GM/DL (6.4-8.2)
[2017-06-08] MEDS ORDERED: MIDAZOLAM INJ 2 MG/2 ML VIAL (J2250) As Ordered (08:50)
[2017-06-08] MEDS ORDERED: ROCURONIUM BROMIDE 50 MG/5 ML VIAL As Ordered (08:50)
[2017-06-08] MEDS ORDERED: ePHEDrine INJ 50 MG/ML VIAL As Ordered (08:50)
[2017-06-08] MEDS ORDERED: fentaNYL 100 MCG/2 ML INJECTION (J3010) As Ordered ×2 (08:50→08:59)
[2017-06-08] MEDS ORDERED: LIDOCAINE 2% INJ 100 MG/5 ML SDV (FOR ANES.) As Ordered (08:50)
[2017-06-08] MEDS ORDERED: PROPOFOL 200 MG/20 ML VIAL As Ordered (08:50)
[2017-06-08] MEDS: BUPIVACAINE HCL 0.25% 30 ML VIAL As Ordered (09:30)
[2017-06-08] MEDS ORDERED: KETOROLAC 60 MG/2 ML VIAL (J1885) As Ordered (09:38)
[2017-06-08] MEDS ORDERED: ONDANSETRON 4MG/2ML VIAL (J2405) As Ordered (09:38)
[2017-06-08] MEDS ORDERED: dexameTHASONE 4 MG/ML 1ML VIAL (J1100) As Ordered ×2 (09:38)
[2017-06-08] MEDS ORDERED: GLYCOPYRROLATE INJ 0.2 MG/ML 2 ML VIAL As Ordered (09:39)
[2017-06-08] MEDS ORDERED: NEOSTIGMINE 10 MG/10 ML VIAL (J2710) As Ordered (09:39)
[2017-06-08] MEDS ORDERED: ONDANSETRON 4MG/2ML VIAL (J2405) IV (10:45)
[2017-06-08] MEDS ORDERED: fentaNYL 100 MCG/2 ML INJECTION (J3010) IV (10:45)
[2017-06-08] MEDS: NORCO, ANEXSIA 5/325MG TABLET (HYDROcodone/ACETAMINOPHEN) PO ×2 (11:31→15:53)
[2017-06-08] MEDS: IBUPROFEN 600 MG TAB PO (11:32)
[2017-06-08] MEDS: LR 1,000 ML IV (12:25)
== END 2017-06-08 16:10 | disposition home or self-care (01) | DRG 263 ==
LOC: M MSPAV 06-06 01:00 → M ED 08:49 → M PED 06-06 22:16 → M ED INP 16:29
PROC: 0FT44ZZ Resection of Gallbladder, Percutaneous Endoscopic Approach (ICD-10-PCS; principal; 2017-06-08 08:30)
DX: K80.20 Calculus of gallbladder without cholecystitis without obstruction (principal); K85.10 Biliary acute pancreatitis without necrosis or infection; D50.9 Iron deficiency anemia, unspecified; M79.7 Fibromyalgia; K57.30 Diverticulosis of large intestine without perforation or abscess without bleeding; R51 Headache; Z86.14 Personal history of Methicillin resistant Staphylococcus aureus infection; Z79.899 Other long term (current) drug therapy; Z88.8 Allergy status to other drugs, medicaments and biological substances

== ENCOUNTER 2017-06-16 00:26 | Emergency (ER) | payer BC ==
[2017-06-16 01:25] LABS: INFLUENZA A AMPLIFICATION NEGATIVE (NEGATIVE); INFLUENZA B AMPLIFICATION NEGATIVE (NEGATIVE)
== END 2017-06-16 01:55 | disposition home or self-care (01) ==
LOC: M ED 00:26
DX: J02.9 Acute pharyngitis, unspecified (principal); J40 Bronchitis, not specified as acute or chronic; M79.7 Fibromyalgia; M54.40 Lumbago with sciatica, unspecified side; F41.9 Anxiety disorder, unspecified; F33.9 Major depressive disorder, recurrent, unspecified; Z79.899 Other long term (current) drug therapy; Z88.8 Allergy status to other drugs, medicaments and biological substances; Z87.19 Personal history of other diseases of the digestive system; Z86.14 Personal history of Methicillin resistant Staphylococcus aureus infection; Z86.69 Personal history of other diseases of the nervous system and sense organs; Z98.890 Other specified postprocedural states
CPT/HCPCS: 87502

== ENCOUNTER 2017-06-19 19:56 | Emergency (ER) | payer BC ==
[2017-06-19] MEDS: IBUPROFEN 800 MG TAB PO ×2 (21:10)
== END 2017-06-19 21:53 | disposition home or self-care (01) ==
LOC: M ED 19:56
DX: J20.8 Acute bronchitis due to other specified organisms (principal); M79.7 Fibromyalgia; D64.9 Anemia, unspecified
CPT/HCPCS: 71046

== ENCOUNTER 2017-09-02 11:30 | Emergency (ER) | payer BC ==
[2017-09-02 12:00] LABS: BASO # 0.1 10^3/uL (0.0-0.2); BASO % 0.9 % (0.0-1.0); EOS # 0.1 10^3/uL (0.0-0.50); EOS % 2.5 % (0.0-3.0); HEMATOCRIT 35.3 % (36.0-47.0); HEMOGLOBIN 10.9 g/dl (12.0-15.5); IMMATURE GRANULOCYTE % 0.2 % (0-3.0); LYMPH # 1.5 10^3/uL (1.5-4.5); LYMPH % 26.8 % (24.0-44.0); MEAN CORPUSCULAR HEMOGLOBIN 24.8 pg (27.0-33.0); MEAN CORPUSCULAR HGB CONC 30.9 g/dl (32.0-36.5); MEAN CORPUSCULAR VOLUME 80.4 fl (80.0-96.0); MONO # 0.6 10^3/uL (0.0-0.8); MONO % 9.9 % (0.0-5.0); NEUTROPHILS # 3.4 10^3/uL (1.8-7.7); NEUTROPHILS % 59.7 % (36.0-66.0); PLATELET COUNT, AUTOMATED 364 10^3/uL (150-450); RED BLOOD COUNT 4.39 10^6/uL (4.00-5.40); RED CELL DISTRIBUTION WIDTH 18.6 % (11.5-14.5); WHITE BLOOD COUNT 5.7 10^3/uL (4.0-10.0)
[2017-09-02] MEDS: ONDANSETRON 4MG/2ML VIAL (J2405) IV (12:00)
[2017-09-02] MEDS: MORPHINE 4 MG/ML 1ML VIAL/SYRINGE (J2270) IV ×2 (12:01→12:58)
[2017-09-02 12:20] LABS: D-DIMER QUANT < 270.0 ng/ml (<500)
[2017-09-02 12:21] LABS: CONTROL LINE HCG INT CTR LINE PRESENT; HCG, SERUM QUALITATIVE NEGATIVE (NEGATIVE)
[2017-09-02 12:29] LABS: ALBUMIN 4.4 GM/DL (3.2-5.2); ALBUMIN/GLOBULIN RATIO 1.52 (1.00-1.93); ALKALINE PHOSPHATASE 59 U/L (45-117); ALT/SGPT 19 U/L (12-78); ANION GAP 4 MEQ/L (8-16); AST/SGOT 13 U/L (7-37); BILIRUBIN,DIRECT 0.2 MG/DL (0.0-0.2); BILIRUBIN,TOTAL 0.9 MG/DL (0.2-1.0); BLOOD UREA NITROGEN 9 MG/DL (7-18); CARBON DIOXIDE LEVEL 29 MEQ/L (21-32); CHLORIDE LEVEL 107 MEQ/L (98-107); CPK CREATINE PHOSPHOKINASE 78 U/L (26-192); CREATININE FOR GFR 0.87 MG/DL (0.55-1.30); GLOMERULAR FILTRATION RATE > 60.0 (>58); GLUCOSE, FASTING 88 MG/DL (70-100); LIPASE 167 U/L (73-393); SODIUM LEVEL 140 MEQ/L (136-145); TOTAL PROTEIN 7.3 GM/DL (6.4-8.2); TROPONIN I < 0.02 NG/ML (< 0.10)
[2017-09-02 12:35] LABS: CK-MB VALUE MASS < 1.0 NG/ML (<3.6); MB/CK RELATIVE INDEX 1.28 (< OR =4)
[2017-09-02] MEDS ORDERED: ISOVUE-370 76% 100ML VIAL (Q9967) As Ordered (13:15)
[2017-09-02 14:00] LABS: CK-MB VALUE MASS < 1.0 NG/ML (<3.6); CPK CREATINE PHOSPHOKINASE 71 U/L (26-192); TROPONIN I < 0.02 NG/ML (< 0.10)
== END 2017-09-02 14:24 | disposition home or self-care (01) ==
LOC: M ED 11:30
DX: R07.1 Chest pain on breathing (principal); M79.7 Fibromyalgia; A69.20 Lyme disease, unspecified; Z82.49 Family history of ischemic heart disease and other diseases of the circulatory system; Z86.14 Personal history of Methicillin resistant Staphylococcus aureus infection; Z87.19 Personal history of other diseases of the digestive system; Z79.899 Other long term (current) drug therapy; Z88.8 Allergy status to other drugs, medicaments and biological substances
CPT/HCPCS: J2270

== ENCOUNTER → 2017-10-27 | Outpatient (REF) | payer BC | LOC: M LAB REF 18:57 | DX: Z01.419 Encounter for gynecological examination (general) (routine) without abnormal findings (principal); Z11.51 Encounter for screening for human papillomavirus (HPV) | CPT/HCPCS: G0123 ==

== ENCOUNTER → 2017-10-31 | Outpatient (CLI) | payer BC | LOC: M RAD 17:02 | DX: N85.8 Other specified noninflammatory disorders of uterus (principal); D25.9 Leiomyoma of uterus, unspecified; N92.1 Excessive and frequent menstruation with irregular cycle | CPT/HCPCS: 76856 ==

== ENCOUNTER 2017-12-04 11:06 | Emergency (ER) | payer BC ==
[2017-12-04] MEDS: NS 1,000 ML IV (11:59)
[2017-12-04] MEDS: ONDANSETRON 4MG/2ML VIAL (J2405) IV (11:59)
[2017-12-04] MEDS: KETOROLAC 30 MG/ML VIAL (J1885) IV (12:00)
[2017-12-04] MEDS: diphenhydrAMINE INJ 50MG/ML VIAL (J1200) IV (12:00)
== END 2017-12-04 13:30 | disposition home or self-care (01) ==
LOC: M ED 11:06
DX: G43.909 Migraine, unspecified, not intractable, without status migrainosus (principal); F33.9 Major depressive disorder, recurrent, unspecified; M79.7 Fibromyalgia; Z79.899 Other long term (current) drug therapy; Z88.8 Allergy status to other drugs, medicaments and biological substances
CPT/HCPCS: J1200

== ENCOUNTER 2017-12-05 19:09 | Emergency (ER) | payer BC ==
[2017-12-05] MEDS: NS 1,000 ML IV (20:33)
[2017-12-05] MEDS: PANTOPRAZOLE 40MG INJ (PROTONIX) (C9113) IV (20:33)
[2017-12-05 20:35] LABS: ALBUMIN 3.6 GM/DL (3.2-5.2); ALBUMIN/GLOBULIN RATIO 1.06 (1.00-1.93); ALKALINE PHOSPHATASE 60 U/L (45-117); ALT/SGPT 28 U/L (12-78); ANION GAP 7 MEQ/L (8-16); AST/SGOT 37 U/L (7-37); BILIRUBIN,DIRECT 0.1 MG/DL (0.0-0.2); BILIRUBIN,TOTAL 0.7 MG/DL (0.2-1.0); BLOOD UREA NITROGEN 10 MG/DL (7-18); CALCIUM LEVEL 8.9 MG/DL (8.5-10.1); CARBON DIOXIDE LEVEL 26 MEQ/L (21-32); CHLORIDE LEVEL 108 MEQ/L (98-107); CREATININE FOR GFR 0.86 MG/DL (0.55-1.30); GLOMERULAR FILTRATION RATE > 60.0 (>58); GLUCOSE, FASTING 94 MG/DL (70-100); LIPASE 657 U/L (73-393); POTASSIUM SERUM 3.9 MEQ/L (3.5-5.1); SODIUM LEVEL 141 MEQ/L (136-145)
[2017-12-05] MEDS: KETOROLAC 30 MG/ML VIAL (J1885) IV (20:35)
[2017-12-05] MEDS: ONDANSETRON 4MG/2ML VIAL (J2405) IV (20:35)
[2017-12-05] MEDS: MORPHINE 2 MG/ML 1ML SYRINGE (J2270) IV (20:35)
[2017-12-05 21:01] LABS: BASO # 0.1 10^3/uL (0.0-0.2); BASO % 0.8 % (0.0-1.0); EOS # 0.1 10^3/uL (0.0-0.50); EOS % 1.2 % (0.0-3.0); HEMATOCRIT 31.8 % (36.0-47.0); HEMOGLOBIN 9.5 g/dl (12.0-15.5); IMMATURE GRANULOCYTE % 0.5 % (0-3.0); LYMPH # 1.4 10^3/uL (1.5-4.5); LYMPH % 22.5 % (24.0-44.0); MEAN CORPUSCULAR HEMOGLOBIN 24.1 pg (27.0-33.0); MEAN CORPUSCULAR HGB CONC 29.9 g/dl (32.0-36.5); MEAN CORPUSCULAR VOLUME 80.5 fl (80.0-96.0); MONO # 0.6 10^3/uL (0.0-0.8); MONO % 9.8 % (0.0-5.0); NEUTROPHILS # 3.9 10^3/uL (1.8-7.7); NEUTROPHILS % 65.2 % (36.0-66.0); PLATELET COUNT, AUTOMATED 313 10^3/uL (150-450); RED BLOOD COUNT 3.95 10^6/uL (4.00-5.40)
[2017-12-05 21:17] LABS: KETONE, URINE AUTO RFX NEGATIVE (NEGATIVE); LEUKOCYTE ESTERASE UR AUTO RFX NEGATIVE (NEGATIVE); MUCUS, URINE RFX SMALL (NEGATIVE); NITRITE, URINE AUTO RFX NEGATIVE (NEGATIVE); RBC, URINE AUTO RFX 1 /HPF (0-3); SPECIFIC GRAVITY UR AUTO RFX 1.012 (1.002-1.035); SQUAM EPITHELIAL CELL UR AURFX 1 /HPF (0-6); WBC, URINE AUTO RFX 1 /HPF (0-3)
[2017-12-05] MEDS: OXYCODONE/APAP 5MG/325MG(BULK FOR ED) 1 TABLET PO (21:30)
[2017-12-05 21:47] LABS: INR 0.99; PROTHROMBIN TIME 13.2 SECONDS (12.1-14.4)
== END 2017-12-05 21:52 | disposition home or self-care (01) ==
LOC: M ED 19:09
DX: K85.90 Acute pancreatitis without necrosis or infection, unspecified (principal); J45.909 Unspecified asthma, uncomplicated; M79.7 Fibromyalgia; D64.9 Anemia, unspecified; G43.909 Migraine, unspecified, not intractable, without status migrainosus; Z88.8 Allergy status to other drugs, medicaments and biological substances; F17.210 Nicotine dependence, cigarettes, uncomplicated
CPT/HCPCS: C9113

== ENCOUNTER → 2018-01-07 | Outpatient (REF) | payer BC | LOC: M LAB REF 14:05 | DX: N92.0 Excessive and frequent menstruation with regular cycle (principal) ==

== ENCOUNTER 2018-01-14 12:00 | Day surgery (SDC) | payer BC ==
[~2018-01-14 12:00] MED LIST changes: -ANAP550T PO; -ASPI81TA85 PO; -AUGM500T34 OR; -AUGM875T28 PO; -COLA100C5 PO; -EXCETAB80 PO; -FLAG500T PO; +GLYCOPYRROLATE INJ 0.2 MG/ML 2 ML VIAL As Ordered; +HYDROmorphone HCL 2 MG/ML 1ML VIAL (J1170) As Ordered; +KETOROLAC 60 MG/2 ML VIAL (J1885) As Ordered; -LEVA250T OR; -LEXAPRO OR; +LIDOCAINE 1% MDV 20ML VIAL SQ; +LIDOCAINE 2% INJ 100 MG/5 ML SDV (FOR ANES.) As Ordered; +MIDAZOLAM INJ 2 MG/2 ML VIAL (J2250) As Ordered; +NEOSTIGMINE 10 MG/10 ML VIAL (J2710) As Ordered; -NO HOME MEDS; +ONDANSETRON 4MG/2ML VIAL (J2405) As Ordered; -PERCOCET OR; -PRIL20CA9 PO; +PROPOFOL 200 MG/20 ML VIAL As Ordered; -REVIA; +ROCURONIUM BROMIDE 50 MG/5 ML VIAL As Ordered; -SERO200T OR; -TYLE325T5 PO; +dexameTHASONE 4 MG/ML 1ML VIAL (J1100) As Ordered; +fentaNYL 100 MCG/2 ML INJECTION (J3010) As Ordered
[2018-01-14 13:03] LABS: HEMATOCRIT 36.2 % (36.0-47.0); MEAN CORPUSCULAR HGB CONC 30.4 g/dl (32.0-36.5); PLATELET COUNT, AUTOMATED 304 10^3/uL (150-450); RED BLOOD COUNT 4.58 10^6/uL (4.00-5.40); RED CELL DISTRIBUTION WIDTH 16.8 % (11.5-14.5); WHITE BLOOD COUNT 5.7 10^3/uL (4.0-10.0)
[2018-01-14 13:19] LABS: CONTROL LINE HCG INT CTR LINE PRESENT; HCG, SERUM QUALITATIVE NEGATIVE (NEGATIVE)
[2018-01-14] MEDS: LR 1,000 ML IV (13:20)
[2018-01-14] MEDS: BUPIVACAINE HCL 0.25% 30 ML VIAL As Ordered (16:32)
[2018-01-14] MEDS ORDERED: PERCOCET 5MG/325MG TAB As Ordered (16:52)
[2018-01-14] MEDS ORDERED: fentaNYL 100 MCG/2 ML INJECTION (J3010) As Ordered (16:52)
[2018-01-14] MEDS ORDERED: METHYLENE BLUE 0.5% (5MG/ML) 10 ML AMP (PROVAYBLUE)(Q9968 PER 1MG) As Ordered (17:06)
[2018-01-14] MEDS ORDERED: LR 1,000 ML IV ×2 (17:15→17:30)
[2018-01-14] MEDS ORDERED: PERCOCET 5MG/325MG TAB PO ×2 (17:15→17:30)
[2018-01-14] MEDS ORDERED: ONDANSETRON 4MG/2ML VIAL (J2405) IV ×2 (17:15→17:30)
[2018-01-14] MEDS ORDERED: fentaNYL 100 MCG/2 ML INJECTION (J3010) IV ×2 (17:15→17:30)
[2018-01-14] MEDS ORDERED: MORPHINE 4 MG/ML 1ML VIAL/SYRINGE (J2270) IV (17:30)
[2018-01-14] MEDS ORDERED: zolPIDEM TARTRATE 5 MG TAB PO (17:30)
[2018-01-14] MEDS: PERCOCET 5MG/325MG TAB PO (21:29)
[2018-01-14] MEDS: KETOROLAC 30 MG/ML VIAL (J1885) IV (21:29)
[2018-01-15] MEDS: ONDANSETRON 4MG/2ML VIAL (J2405) IV (02:06)
[2018-01-15] MEDS: KETOROLAC 30 MG/ML VIAL (J1885) IV ×2 (03:21→09:15)
[2018-01-15] MEDS: PERCOCET 5MG/325MG TAB PO (06:39)
[2018-01-15 07:49] LABS: HEMATOCRIT 29.1 % (36.0-47.0); HEMOGLOBIN 9.1 g/dl (12.0-15.5); MEAN CORPUSCULAR HEMOGLOBIN 24.1 pg (27.0-33.0); MEAN CORPUSCULAR HGB CONC 31.3 g/dl (32.0-36.5); PLATELET COUNT, AUTOMATED 284 10^3/uL (150-450); RED BLOOD COUNT 3.78 10^6/uL (4.00-5.40); RED CELL DISTRIBUTION WIDTH 16.5 % (11.5-14.5)
== END 2018-01-15 10:40 | disposition home or self-care (01) ==
LOC: M SDC 12:00 → M PED 17:33
DX: N93.9 Abnormal uterine and vaginal bleeding, unspecified (principal); N80.0 Endometriosis of uterus; D25.1 Intramural leiomyoma of uterus; N72 Inflammatory disease of cervix uteri; K57.32 Diverticulitis of large intestine without perforation or abscess without bleeding; K52.9 Noninfective gastroenteritis and colitis, unspecified; D50.9 Iron deficiency anemia, unspecified; F41.9 Anxiety disorder, unspecified; F32.9 Major depressive disorder, single episode, unspecified; G43.909 Migraine, unspecified, not intractable, without status migrainosus; Z79.899 Other long term (current) drug therapy; Z98.51 Tubal ligation status
CPT/HCPCS: 58570

== ENCOUNTER 2018-09-12 23:03 | Emergency (ER) | payer BC ==
[~2018-09-12] VITALS: Ht 160 cm; Wt 77.3 kg
[~2018-09-12 23:03] MED LIST changes: +ANAP550T15 PO; +ASPI81TA85 PO; +AUGM500T34 OR; +AUGM875T28 PO; +COLA100C5 PO; +DICL50TA2 PO; +EXCETAB80 PO; +FERR1TAB8 PO; +FLAG500T PO; +GABA-843 PO; -GLYCOPYRROLATE INJ 0.2 MG/ML 2 ML VIAL As Ordered; +HYDR-3715 PO; -HYDROmorphone HCL 2 MG/ML 1ML VIAL (J1170) As Ordered; +IBUP-1022 PO; -KETOROLAC 60 MG/2 ML VIAL (J1885) As Ordered; +LEVA250T OR; +LEXA1TAB OR; -LIDOCAINE 1% MDV 20ML VIAL SQ; -LIDOCAINE 2% INJ 100 MG/5 ML SDV (FOR ANES.) As Ordered; -MIDAZOLAM INJ 2 MG/2 ML VIAL (J2250) As Ordered; +MUCI600T31 PO; +NAPR-837 PO; -NEOSTIGMINE 10 MG/10 ML VIAL (J2710) As Ordered; +NO HOME MEDS; -ONDANSETRON 4MG/2ML VIAL (J2405) As Ordered; +OXYC1TAB23 OR; +PANT40TA3 PO; +PERC5TAB12 PO; +PERCOCET PO; +PRIL20CA9 PO; +PROAAER10; +PROAAER10 INH; -PROPOFOL 200 MG/20 ML VIAL As Ordered; +REVIA; -ROCURONIUM BROMIDE 50 MG/5 ML VIAL As Ordered; +SERO200T OR; +TUMS500C PO; +TYLE325T5 PO; +TYLE500T78 PO; +VITMTA PO; +ZITHTAB PO; +ZOFR4TAB14 PO; -dexameTHASONE 4 MG/ML 1ML VIAL (J1100) As Ordered; -fentaNYL 100 MCG/2 ML INJECTION (J3010) As Ordered
[2018-09-13] MEDS ORDERED: ISOVUE-370 76% 100ML VIAL (Q9967) As Ordered ONE (00:19)
[2018-09-13 00:39] LABS: BASO # 0.1 10^3/uL (0.0-0.2); BASO % 1.1 % (0.0-1.0); EOS # 0.2 10^3/uL (0.0-0.50); EOS % 3.9 % (0.0-3.0); HEMATOCRIT 38.2 % (36.0-47.0); HEMOGLOBIN 11.8 g/dl (12.0-15.5); LYMPH # 1.5 10^3/uL (1.5-4.5); MEAN CORPUSCULAR HEMOGLOBIN 26.3 pg (27.0-33.0); MEAN CORPUSCULAR HGB CONC 30.9 g/dl (32.0-36.5); MEAN CORPUSCULAR VOLUME 85.3 fl (80.0-96.0); MONO # 0.6 10^3/uL (0.0-0.8); MONO % 10.1 % (0.0-5.0); NEUTROPHILS # 3.7 10^3/uL (1.8-7.7); NEUTROPHILS % 60.7 % (36.0-66.0); PLATELET COUNT, AUTOMATED 329 10^3/uL (150-450); RED BLOOD COUNT 4.48 10^6/uL (4.00-5.40); WHITE BLOOD COUNT 6.2 10^3/uL (4.0-10.0)
[2018-09-13 00:49] LABS: ALBUMIN 3.8 GM/DL (3.2-5.2); ALT/SGPT 20 U/L (12-78); AMYLASE 85 U/L (25-115); BILIRUBIN,DIRECT 0.1 MG/DL (0.0-0.2); BILIRUBIN,TOTAL 0.5 MG/DL (0.2-1.0); BLOOD UREA NITROGEN 12 MG/DL (7-18); CARBON DIOXIDE LEVEL 27 MEQ/L (21-32); CHLORIDE LEVEL 109 MEQ/L (98-107); CREATININE FOR GFR 0.82 MG/DL (0.55-1.30); GLOMERULAR FILTRATION RATE > 60.0 (>58); GLUCOSE, FASTING 101 MG/DL (70-100); LIPASE 222 U/L (73-393); POTASSIUM SERUM 3.7 MEQ/L (3.5-5.1); SODIUM LEVEL 141 MEQ/L (136-145); TOTAL PROTEIN 7.3 GM/DL (6.4-8.2)
[2018-09-13 00:51] LABS: HCG, SERUM QUALITATIVE NEGATIVE (NEGATIVE)
[2018-09-13] MEDS ORDERED: ONDANSETRON 4MG/2ML VIAL (J2405) IV ONE (01:00)
[2018-09-13] MEDS ORDERED: KETOROLAC 30 MG/ML VIAL (J1885) IV ONE (01:00)
[2018-09-13] MEDS ORDERED: METAL LOCK LOOP XX ONE (01:19)
--- NOTE | 2018-09-13 02:02 | REPVR ---
EXAM: CT Angiography Chest with contrast CT Abdomen with contrast EXAM DATE/TIME: 09/12/18 (11:59pm) CLINICAL HISTORY: 48 year old female with chest pain, shoulder pain, and abdominal pain. Possible aortic dissection. TECHNIQUE: Imaging protocol: Axial computed tomographic angiography images of the chest with intravenous contrast using CT angiography protocol. Coronal and sagittal reformatted images were created and reviewed. 3D rendering: MIP and 3D reconstructed images were created and reviewed. Radiation optimization: All CT scans at this facility use at least one of these dose optimization techniques: automated exposure control; mA and/or kV adjustment per patient size (includes targeted exams where dose is matched to clinical indication); or iterative reconstruction. Contrast material: Isovue 370 Contrast volume: 100 ml Contrast route: IV COMPARISON: CTA CHEST of 09/02/17 CT ANGIOGRAPHY --- CHEST FINDINGS: Pulmonary arteries: Normal. No pulmonary emboli. Aorta: Normal. No aortic aneurysm. No aortic dissection. Lungs: Normal. No consolidation nor masses. Pleural space: Normal. No pneumothorax. No pleural effusions. Heart: Normal. No cardiomegaly. No pericardial effusion. Lymph nodes: Unremarkable. No enlarged lymph nodes. Bones/joints: Unremarkable. No acute fracture. Soft tissues: Unremarkable. IMPRESSION: No acute findings. No filling defects suspicious for pulmonary emboli are seen. There is no CT evidence of aortic dissection nor leakage. No aortic aneurysm is appreciated. (((((((((((((((((((((((((((((((((((((((((((((((((((((((((((((((((((((((((((((((( (((((((((((( CT SCAN --- ABDOMEN FINDINGS: The lower lung love are clear. The liver shows diffuse fatty infiltration. No focal liver nor splenic lesions. The spleen is prominent in size. Previous cholecystectomy. The pancreas is unremarkable. Mild fullness of the left adrenal gland (probable benign in nature). No acute bowel pathology. No abscess. No bowel obstruction. No hydronephrosis. No acute aortic pathology. No evidence of aortic dissection nor leakage. No aortic aneurysm. IMPRESSION: No acute pathology. Previous cholecystectomy. Prominent spleen. No acute aortic pathology. No evidence of aortic dissection. Electronically signed by: Lisa Ty On 09/13/2018 02:02:24 AM
[2018-09-13 02:18] VITALS: BP 91/56
--- NOTE | 2018-09-13 07:46 | ECGEPIP ---
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
== END 2018-09-13 02:34 | disposition home or self-care (01) ==
LOC: M ED 23:03
DX: R42 Dizziness and giddiness (principal); D64.9 Anemia, unspecified; K59.9 Functional intestinal disorder, unspecified; M79.7 Fibromyalgia; G43.909 Migraine, unspecified, not intractable, without status migrainosus; Z88.8 Allergy status to other drugs, medicaments and biological substances
CPT/HCPCS: 36415; 71275; 74175; 80048; 80076; 81001; 82150; 83690; 84703; 85025; 93005; 96374; 96375; 99284; J1885; J2405; Q9967

== ENCOUNTER 2018-09-16 07:58 | Emergency (ER) | payer BC ==
[~2018-09-16] VITALS: Ht 162.6 cm; Wt 35.6 kg
[2018-09-16] MEDS ORDERED: ACET-683 PO (08:03)
[2018-09-16] MEDS ORDERED: KETOROLAC 60 MG/2 ML VIAL (J1885) IM ONE (08:45)
[2018-09-16] MEDS ORDERED: NAPR-837 PO (09:18)
[2018-09-16 09:32] VITALS: BP 125/77
--- NOTE | 2018-09-16 14:57 | ECGEPIP ---
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 Order Number: [id number] Reading MD: Rian Zamudio Measurements Intervals [place] Rate: 74 P: 52 SD: 127 QRS: 44 QRSD: 95 T: 47 QT: 350 QTc: 390 Interpretive Statements SINUS RHYTHM Similar to tracing done 09-02-17 Electronically Signed On 09-16-2018 14:56:50 EDT by Rian Zamudio
== END 2018-09-16 09:38 | disposition home or self-care (01) ==
LOC: M ED 07:58
DX: R07.89 Other chest pain (principal); M79.7 Fibromyalgia; Z88.8 Allergy status to other drugs, medicaments and biological substances
CPT/HCPCS: 93005; 99284; J1885

== ENCOUNTER → 2018-10-08 | Outpatient (REF) | payer BC ==
[~2018-10-08] MED LIST changes: +ACET-683 PO
== END ==
LOC: M LAB REF 14:50
PROVIDERS: ATTEND Surgery
DX: D48.5 Neoplasm of uncertain behavior of skin (principal)

== ENCOUNTER 2018-10-30 15:47 | Emergency (ER) | payer BC ==
[~2018-10-30] VITALS: Ht 157.5 cm; Wt 75.0 kg
[2018-10-30 16:33] LABS: VENOUS HCO3 25.9 MEQ/L (23.0-27.0); VENOUS O2 SATURATION 85.2 % (60.0-80.0); VENOUS PARTIAL PRESSURE CO2 42.5 mmHg (38.0-50.0); VENOUS PARTIAL PRESSURE O2 51.7 mmHg (30.0-50.0); VENOUS PH 7.403 UNITS (7.330-7.430); VENOUS TOTAL CO2 27.2 MEQ/L (24.0-28.0)
[2018-10-30 16:36] LABS: BASO # 0.1 10^3/uL (0.0-0.2); BASO % 0.9 % (0.0-1.0); EOS # 0.1 10^3/uL (0.0-0.50); EOS % 2.3 % (0.0-3.0); HEMATOCRIT 39.9 % (36.0-47.0); HEMOGLOBIN 12.8 g/dl (12.0-15.5); LYMPH # 1.2 10^3/uL (1.5-4.5); MEAN CORPUSCULAR HEMOGLOBIN 28.4 pg (27.0-33.0); MEAN CORPUSCULAR HGB CONC 32.1 g/dl (32.0-36.5); MEAN CORPUSCULAR VOLUME 88.7 fl (80.0-96.0); MONO # 0.5 10^3/uL (0.0-0.8); MONO % 8.3 % (0.0-5.0); NEUTROPHILS # 3.8 10^3/uL (1.8-7.7); NEUTROPHILS % 67.1 % (36.0-66.0); PLATELET COUNT, AUTOMATED 326 10^3/uL (150-450); WHITE BLOOD COUNT 5.7 10^3/uL (4.0-10.0)
--- NOTE | 2018-10-30 17:08 | REP ---
Chest x-ray: Two views. History: Shortness of breath times 1 month . Comparison study: August 23, 2017 . Findings: The lungs are well inflated and free of infiltrate. The pleural angles are sharp. The heart size is normal. Pulmonary vasculature is not increased. No significant bony abnormality is seen. Impression: Negative chest x-ray. Electronically Signed by Everette Reyes MD 10/30/2018 05:00 P
[2018-10-30 17:14] LABS: ALBUMIN 4.1 GM/DL (3.2-5.2); ALT/SGPT 17 U/L (12-78); BILIRUBIN,DIRECT 0.1 MG/DL (0.0-0.2); BILIRUBIN,TOTAL 0.5 MG/DL (0.2-1.0); BLOOD UREA NITROGEN 8 MG/DL (7-18); CALCIUM LEVEL 9.8 MG/DL (8.5-10.1); CARBON DIOXIDE LEVEL 28 MEQ/L (21-32); CHLORIDE LEVEL 107 MEQ/L (98-107); CK-MB VALUE MASS < 1.0 NG/ML (<3.6); CPK CREATINE PHOSPHOKINASE 80 U/L (26-192); CREATININE FOR GFR 0.94 MG/DL (0.55-1.30); GLOMERULAR FILTRATION RATE > 60.0 (>58); GLUCOSE, FASTING 104 MG/DL (70-100); MB/CK RELATIVE INDEX 1.25 (< OR =4); NT-PRO BNP 25 PG/ML (<125); POTASSIUM SERUM 3.8 MEQ/L (3.5-5.1); SODIUM LEVEL 142 MEQ/L (136-145); THYROXINE (T4) 7.2 UG/DL (4.5-12.0); TOTAL PROTEIN 7.4 GM/DL (6.4-8.2); TROPONIN I < 0.02 NG/ML (< 0.10)
[2018-10-30] MEDS ORDERED: ACETAMINOPHEN TAB 650MG DOSE (2X325MG) PO ONE (17:45)
[2018-10-30] MEDS ORDERED: ISOVUE-370 76% 100ML VIAL (Q9967) As Ordered ONE (18:28)
[2018-10-30] MEDS ORDERED: methylPREDNISolone INJ 125 MG/2 ML VIAL (J2930) IV ONE (18:30)
[2018-10-30] MEDS ORDERED: ALBUTEROL SULFATE 2.5 MG/0.5 ML INH NEB SOLN NEB ONE (18:30)
--- NOTE | 2018-10-30 18:54 | REPVR ---
EXAM: CT Angiography Chest With Contrast EXAM DATE/TIME: 10/30/2018 6:19 PM CLINICAL HISTORY: 48 years old, female; Signs and symptoms; Shortness of breath; Additional info: SOB, sarcoidosis TECHNIQUE: Imaging protocol: Axial computed tomographic angiography images of the chest with intravenous contrast using CT angiography protocol. Coronal and sagittal reformatted images were created and reviewed. 3D rendering: MIP reconstructed images were created and reviewed. Radiation optimization: All CT scans at this facility use at least one of these dose optimization techniques: automated exposure control; mA and/or kV adjustment per patient size (includes targeted exams where dose is matched to clinical indication); or iterative reconstruction. Contrast material: ISOVUE 370; Contrast volume: 75 ml; Contrast route: IV; COMPARISON: No relevant prior studies available. FINDINGS: Pulmonary arteries: There are no pulmonary emboli. Aorta: There is no aortic dissection or aneurysm. Lungs: Unremarkable. No consolidation. No masses. Pleural space: Unremarkable. No pneumothorax. No pleural effusion. Heart: Unremarkable. No cardiomegaly. No pericardial effusion. Lymph nodes: Multiple mediastinal lymph nodes consistent with reported history of sarcoidosis. Bones/joints: Unremarkable. No acute fracture. Soft tissues: Unremarkable. IMPRESSION: 1. Multiple mediastinal lymph nodes consistent with reported history of sarcoidosis. 2. There are no pulmonary emboli. 3. There is no aortic dissection or aneurysm. Electronically signed by: Adán Hurtado On 10/30/2018 18:54:05 PM
[2018-10-30 19:24] VITALS: BP 101/64
[2018-10-30] MEDS ORDERED: PRED20TA PO (19:31)
[2018-10-30] MEDS ORDERED: ALBU17IN2 INH (19:31)
--- NOTE | 2018-10-31 05:51 | ECGEPIP ---
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
--- NOTE | 2018-11-02 12:47 | ED PDOC ---
Post-Departure Follow-Up dr hair faxed formal report of cta chest for fu Jaymie Rizvi MD Nov 02, 2018 12:47
[2018-11-10] MEDS ORDERED: SPIR1CAP INH (14:19)
== END 2018-10-30 19:46 | disposition home or self-care (01) ==
LOC: M ED 17:20
DX: R06.00 Dyspnea, unspecified (principal); D86.9 Sarcoidosis, unspecified; R51 Headache; Z88.8 Allergy status to other drugs, medicaments and biological substances
CPT/HCPCS: 36415; 71046; 71275; 80048; 80076; 82550; 82553; 82803; 83880; 84436; 84443; 84484; 85025; 85379; 87040; 93005; 94640; 96374; 99284; J2930; Q9967

== ENCOUNTER 2018-11-17 06:09 | Day surgery (SDC) | payer BC ==
[~2018-11-17] VITALS: Ht 160 cm; Wt 76.2 kg
[~2018-11-17 06:09] MED LIST changes: +ALBU17IN2 INH; +LR 1,000 ML IV ONE; +PRED20TA PO; +SPIR1CAP INH
[2018-11-17] MEDS ORDERED: LIDOCAINE 1% SDV INJ 30 ML VIAL As Ordered ONE (06:57)
[2018-11-17] MEDS ORDERED: CETACAINE SPRAY 5GM As Ordered ONE (06:57)
[2018-11-17] MEDS ORDERED: THROMBIN SOLN 20,000 UNITS KIT As Ordered ONE (06:57)
[2018-11-17] MEDS ORDERED: EPINEPHrine INJ 1 MG/ML 1ML AMP As Ordered ONE (06:58)
[2018-11-17] MEDS ORDERED: LIDOCAINE VISCOUS 2% SOLN 15ML UDC As Ordered ONE (06:58)
[2018-11-17] MEDS ORDERED: dexameTHASONE 4 MG/ML 1ML VIAL (J1100) As Ordered ONE (07:52)
[2018-11-17] MEDS ORDERED: PROPOFOL 200 MG/20 ML VIAL As Ordered ONE (07:52)
[2018-11-17] MEDS ORDERED: MIDAZOLAM INJ 2 MG/2 ML VIAL (J2250) As Ordered ONE (07:52)
[2018-11-17] MEDS ORDERED: ROCURONIUM BROMIDE 50 MG/5 ML VIAL As Ordered ONE (07:52)
[2018-11-17] MEDS ORDERED: LIDOCAINE 2% INJ 100 MG/5 ML SDV (FOR ANES.) As Ordered ONE (07:52)
[2018-11-17] MEDS ORDERED: ONDANSETRON 4MG/2ML VIAL (J2405) As Ordered ONE (07:52)
[2018-11-17] MEDS ORDERED: fentaNYL 100 MCG/2 ML INJECTION (J3010) As Ordered ONE (07:52)
[2018-11-17] MEDS ORDERED: PHENYLephrine HCL 500 MCG/5 ML (100MCG/ML) SYRINGE (J2370) As Ordered ONE (07:55)
[2018-11-17] MEDS ORDERED: SUGAMMADEX SODIUM 500 MG/5 ML VIAL (BRIDION) As Ordered ONE (07:58)
[2018-11-17] MEDS ORDERED: LR 1,000 ML IV SCH (09:15)
[2018-11-17] MEDS ORDERED: fentaNYL 100 MCG/2 ML INJECTION (J3010) IV PRN (09:15)
--- NOTE | 2018-11-17 09:16 | REP ---
Clinical: Postoperative evaluation . Comparison: 10/30/2018 . Findings: The mediastinum and cardiac silhouette are stable and within normal limits for portable technique. The lung love are clear without acute consolidation, effusion, or pneumothorax. Skeletal structures are intact. Impression: No acute cardiopulmonary process appreciated. Electronically Signed by Ilir Powell MD 11/17/2018 09:07 A
[2018-11-17] MEDS ORDERED: ONDANSETRON 4MG/2ML VIAL (J2405) IV PRN (09:45)
[2018-11-17 10:37] VITALS: BP 116/71
--- NOTE | 2018-11-17 13:38 | ROOR ---
Patient Name: Melida Welch Procedure Date: 11/17/2018 7:13 AM Date of : 1970 Admit Type: Outpatient Age: 48 Note Status: Finalized Attending MD: Malinda Edmond MD Procedure: Bronchoscopy Indications: Mediastinal adenopathy Providers: Malinda Edmond MD (Doctor) Referring MD: 1. No Referring Physician 1. No Referring Physician, Admin. (Referring MD) Requesting Physician: Medicines: General Anesthesia, Cetacaine topical Complications: No immediate complications. Estimated blood loss: Minimal Procedure: Pre-Anesthesia Assessment: - Prior to the procedure, a History and Physical was performed, and patient medications and allergies were reviewed. The patient's tolerance of previous anesthesia was also reviewed. The risks and benefits of the procedure and the sedation options and risks were discussed with the patient. All questions were answered, and informed consent was obtained. Prior Anticoagulants: The patient has taken no previous anticoagulant or antiplatelet agents. ASA Grade Assessment: II - A patient with mild systemic disease. After reviewing the risks and benefits, the patient was deemed in satisfactory condition to undergo the procedure. The Bronchoscope was introduced through the mouth, via the endotracheal tube (the patient was intubated for the procedure) and advanced to the tracheobronchial tree of both lungs. The procedure was accomplished without difficulty. The patient tolerated the procedure well. Findings: Respiratory tract: The trachea is of normal caliber. The kayla is sharp. The entire tracheobronchial tree was examined to at least the first subsegmental level. Bronchial mucosa and anatomy are normal except in the left upper lobe there was an anatomical variant of seperate apical and anterior segmental bronchi; there are no endobronchial lesions, except in the anterior medial segment of the left lower lobe there was a submucosal nodule seen. There were also white plaque secretions noted in right and left main bronchi. Endobronchial biopsies of a nodule were performed in the anterior medial segment of the left lower lobe using a forceps and sent for histopathology examination. An endobronchial ultrasound endoscope was utilized in order to assist with fine needle aspiration in the left paratracheal (AP window) area and in the subcarinal area. Transbronchial needle aspirations of a lymph nodes were performed in the left paratracheal (AP window) area and in the subcarinal area using an Olympus EBUS-TBNA 21 gauge needle and sent for routine cytology. The procedure was guided by ultrasound. Transbronchial needle aspiration technique was selected because the sampling site was not visible endoscopically. Washings were obtained in the left mainstem bronchus and sent for cell count, bacterial culture, and fungal & AFB analysis. The return was blood-tinged. Impression: - Mediastinal adenopathy - An endobronchial biopsy was performed. - Endobronchial ultrasound was performed. - A transbronchial needle aspiration was performed. - Washings were obtained. Recommendation: - Follow up with bronchoscopist as previously scheduled. Attending Participation: I personally performed the entire procedure. Malinda Edmond MD 11/17/2018 1:38:18 PM Number of Addenda: 0 Note Initiated On: 11/17/2018 7:13 AM
== END 2018-11-17 10:45 | disposition home or self-care (01) ==
LOC: M SDC 06:09
PROVIDERS: ATTEND Internal Medicine Pulmonary Disease
DX: R59.0 Localized enlarged lymph nodes (principal); R91.1 Solitary pulmonary nodule; K21.9 Gastro-esophageal reflux disease without esophagitis; D50.9 Iron deficiency anemia, unspecified; L92.9 Granulomatous disorder of the skin and subcutaneous tissue, unspecified; F32.9 Major depressive disorder, single episode, unspecified; G43.909 Migraine, unspecified, not intractable, without status migrainosus; Z79.52 Long term (current) use of systemic steroids; Z79.51 Long term (current) use of inhaled steroids; Z88.8 Allergy status to other drugs, medicaments and biological substances; K57.92 Diverticulitis of intestine, part unspecified, without perforation or abscess without bleeding
CPT/HCPCS: 31625; 31629; 31652; 71045; 87102; 88173; 88305; 88313; J1100; J2250; J2370; J2405; J3010

== ENCOUNTER → 2018-11-25 | Outpatient (CLI) | payer BC ==
[~2018-11-25] MED LIST changes: -LR 1,000 ML IV ONE
[2018-11-25 17:33] LABS: ALBUMIN 3.9 GM/DL (3.2-5.2); BILIRUBIN,DIRECT 0.2 MG/DL (0.0-0.2); BILIRUBIN,TOTAL 0.8 MG/DL (0.2-1.0); CALCIUM LEVEL 9.8 MG/DL (8.5-10.1); CREATININE FOR GFR 1.11 MG/DL (0.55-1.30); GLOMERULAR FILTRATION RATE 56.3 (>58); TOTAL PROTEIN 7.1 GM/DL (6.4-8.2)
[2018-11-25 17:42] LABS: TOTAL 25(OH) VITAMIN D 19.5 NG/ML (30.0-100.0)
[2018-11-25 17:45] LABS: BASO # 0.1 10^3/uL (0.0-0.2); BASO % 0.8 % (0.0-1.0); EOS % 0.3 % (0.0-3.0); HEMATOCRIT 41.3 % (36.0-47.0); HEMOGLOBIN 13.1 g/dl (12.0-15.5); LYMPH # 0.9 10^3/uL (1.5-4.5); LYMPH % 9.2 % (24.0-44.0); MEAN CORPUSCULAR HEMOGLOBIN 28.1 pg (27.0-33.0); MEAN CORPUSCULAR HGB CONC 31.7 g/dl (32.0-36.5); MEAN CORPUSCULAR VOLUME 88.4 fl (80.0-96.0); MONO # 0.5 10^3/uL (0.0-0.8); MONO % 4.4 % (0.0-5.0); NEUTROPHILS # 8.3 10^3/uL (1.8-7.7); NEUTROPHILS % 81.1 % (36.0-66.0); PLATELET COUNT, AUTOMATED 327 10^3/uL (150-450); RED BLOOD COUNT 4.67 10^6/uL (4.00-5.40); WHITE BLOOD COUNT 10.2 10^3/uL (4.0-10.0)
[2018-11-25 17:55] LABS: INR 0.92; PARTIAL THROMBOPLASTIN TIME 28.6 SECONDS (25.0-38.4); PROTHROMBIN TIME 12.1 SECONDS (11.8-14.0)
[2018-11-25 18:24] LABS: ERYTHROCYTE SEDIMENTATION RATE 5 mm/hr (0-20)
[2018-12-04 00:06] LABS: ANCA-ATYPICAL <1:20 titer (Neg:<1:20); ANGIOTENSIN 1 CONVERTING ENZYM 17 U/L (14-82); ANTI DS-DNA AB <1:10 titer (.); ANTINUCLEAR ANTIBODIES DIRECT Negative (Negative); ASPERGILLUS FLAVUS ABY Negative (Neg:<1:1); ASPERGILLUS FUMIGATUS ABY Negative (Neg:<1:1); ASPERGILLUS NIGER ABY Negative (Neg:<1:1); BLASTOMYCES ANTIBODY LEVEL Negative (Neg:<1:1); CRYPTOCOCCUS ANTIGEN SER Negative (Negative); CYTOPLASMIC NEUTROP AB ANCA-C <1:20 titer (Neg:<1:20); HISTOPLASMOSIS ANTIBODY Negative (Neg:<1:1); PERINUCLEAR AB ANCA-P <1:20 titer (Neg:<1:20); RNP ANTIBODIES 0.5 AI (0.0-0.9); SJOGREN'S ANTI SS-A <0.2 AI (0.0-0.9); SJOGREN'S ANTI SS-B <0.2 AI (0.0-0.9); SMITH ANTIBODIES <0.2 AI (0.0-0.9); VITAMIN D 1,25 DIHYDROXY 64.3 pg/mL (19.9-79.3)
== END ==
LOC: M SMT 15:14
PROVIDERS: ATTEND Internal Medicine Pulmonary Disease
DX: R59.0 Localized enlarged lymph nodes (principal)

== ENCOUNTER → 2018-12-07 | Outpatient (CLI) | payer BC ==
--- NOTE | 2018-12-11 17:11 | ECHO ---
DATE OF PROCEDURE: 12/07/2018 REFERRING PHYSICIAN: Dr. Malinda Edmond INDICATION: Sarcoidosis HEIGHT: 160 cm. WEIGHT: 77.6 kg. 2D MEASUREMENTS: Left atrium 3.1 cm Ventricular septum 0.94 cm Posterior wall: 0.88 cm Left ventricle diastole: 4.5 cm Aortic root: 2.8 cm Aortic annulus: 2.1 cm Inferior vena cava: 1.4 cm with more than 50% respiratory variation. DOPPLER MEASUREMENTS: Aortic valve velocity: 115 cm/sec LVOT velocity: 77.8 cm/sec Very mild mitral regurgitation Mitral E velocity 77.3 cm/s Mitral A velocity 79.1 cm/s There is very mild mitral regurgitation, very mild pulmonic regurgitation. Pulmonary artery systolic pressure 19 mmHg. IMPRESSION: 1. Normal left ventricular internal dimensions and wall thickness. Normal regional LV wall motion and wall thickness. Normal LV systolic function. LVEF 60% by visual estimate. Incomplete assessment of LV diastolic function on the study. 2. Normal right ventricle size and systolic function. 3. Suggestive or normal pulmonary artery systolic pressure. 4. Mild mitral annular calcification with very mild mitral regurgitation. 5. No pericardial effusion.
== END ==
LOC: M CARPUL 09:03
PROVIDERS: ATTEND Internal Medicine Pulmonary Disease
DX: D86.2 Sarcoidosis of lung with sarcoidosis of lymph nodes (principal)

== ENCOUNTER 2018-12-25 17:11 | Emergency (ER) | payer BC ==
[~2018-12-25] VITALS: Ht 160 cm; Wt 78.1 kg
[~2018-12-25 17:11] MED LIST changes: -ALBU17IN2 INH; +PROV108A INH
[2018-12-25] MEDS ORDERED: NEUR300C PO (18:44)
[2018-12-25] MEDS ORDERED: VALA1TAB64 PO (18:44)
[2018-12-25 18:50] VITALS: BP 124/73
== END 2018-12-25 18:55 | disposition home or self-care (01) ==
LOC: M ED 17:11
DX: B02.23 Postherpetic polyneuropathy (principal); D86.9 Sarcoidosis, unspecified; Z79.899 Other long term (current) drug therapy; Z88.8 Allergy status to other drugs, medicaments and biological substances; Z87.891 Personal history of nicotine dependence

== ENCOUNTER → 2019-01-14 | Outpatient (CLI) | payer BC ==
[~2019-01-14] MED LIST changes: +ALBU17IN2 INH; +NEUR300C PO; -PROV108A INH; +VALA1TAB2 PO
--- NOTE | 2019-01-21 13:03 | SLEEPHOME ---
DATE OF STUDY: 01/14/2019 ORDERING PROVIDER: Malinda Edmond MD Diagnostic home sleep testing was performed due to concern for the obstructive sleep apnea syndrome in this patient with a history of excessive somnolence and irregular breathing in sleep. For testing, a nocturnal T3 respiratory monitoring device was used. Continuous record was made of pulse, oxygen saturation, airflow, chest and abdominal strain and body position. 11 hours and 59 minutes of data were reviewed. There were 7 hours and 36 minutes marked as time in bed. During the interval marked time in bed, there were 23 respiratory events identified of 10 seconds in duration or greater for respiratory event index of three per hour. The events that were identified were both mixed central and obstructive. Baseline pulse rate was 83; pulse rate ranged 64-112. Baseline saturation 93%; saturations fell briefly below 90% to 85%. The oxygen desaturation index was 1.7. Testing was performed in both the supine and nonsupine positions. IMPRESSION: Borderline diagnostic home sleep test with some respiratory variability. RECOMMENDATION: As the frequency of respiratory events does not cydney that which is generally associated with overt obstructive sleep apnea syndrome, interventions to optimize upper airway tone and address weight loss could be considered. Should the patient's symptoms progress, reevaluation with inpatient diagnostic nocturnal polysomnography is a more sensitive measure of sleep-related breathing disorders.
== END ==
LOC: M SLEEP HO 14:33
PROVIDERS: ATTEND Internal Medicine Pulmonary Disease
DX: G47.30 Sleep apnea, unspecified (principal)

== ENCOUNTER 2019-02-06 12:52 | Emergency (ER) | payer BC ==
[~2019-02-06] VITALS: Ht 160 cm; Wt 81.9 kg
[~2019-02-06 12:52] MED LIST changes: -ALBU17IN2 INH; +PROV108A INH
[2019-02-06 12:53] VITALS: BP 132/78
== END 2019-02-06 13:30 | disposition home or self-care (01) ==
LOC: M ED 12:52
DX: G43.909 Migraine, unspecified, not intractable, without status migrainosus (principal)

== ENCOUNTER → 2019-02-19 | Outpatient (CLI) | payer BC ==
[~2019-02-19] MED LIST changes: +ISOVUE-370 76% 100ML VIAL (Q9967) As Ordered ONE
--- NOTE | 2019-02-19 17:27 | REP ---
CT of the chest with IV contrast for dyspnea, stat request: Comparison is 10/30/2018. The patient has clinical history of sarcoidosis. There are no infiltrates. There are no pleural effusions. There are no nodules or masses. There is no mediastinal, hilar or axillary lymph node enlargement. There are no emboli in the pulmonary trunk or central pulmonary arteries. There are no emboli in the pulmonary artery lobe or segment branches. The thoracic aorta is unremarkable. Cardiac size is normal. There is no pericardial effusion. The visualized upper abdominal structures are unremarkable except for surgical clips in the gallbladder fossa. This is unchanged. Impression: Negative CT study of the chest. Electronically Signed by Alejo Topete MD 02/19/2019 05:19 P
[2019-02-19 17:34] LABS: ALT/SGPT 29 U/L (12-78); BILIRUBIN,TOTAL 0.7 MG/DL (0.2-1.0); BLOOD UREA NITROGEN 15 MG/DL (7-18); CALCIUM LEVEL 9.7 MG/DL (8.5-10.1); CARBON DIOXIDE LEVEL 30 MEQ/L (21-32); CHLORIDE LEVEL 107 MEQ/L (98-107); CREATININE FOR GFR 1.01 MG/DL (0.55-1.30); GLOMERULAR FILTRATION RATE > 60.0 (>58); GLUCOSE, FASTING 80 MG/DL (70-100); POTASSIUM SERUM 4.2 MEQ/L (3.5-5.1); SODIUM LEVEL 143 MEQ/L (136-145); TOTAL PROTEIN 6.8 GM/DL (6.4-8.2)
[2019-02-22 11:32] LABS: HEPATITIS B SURFACE ANTIBODY NEGATIVE (POSITIVE)
[2019-02-22 11:43] LABS: HEPATITIS B SURFACE ANTIGEN NEGATIVE (NEGATIVE)
== END ==
LOC: M RAD 16:19
PROVIDERS: ATTEND Internal Medicine Pulmonary Disease
DX: D86.2 Sarcoidosis of lung with sarcoidosis of lymph nodes (principal)
CPT/HCPCS: 36415; 71275; 80053; 86706; 87340; G0472; Q9967

== ENCOUNTER → 2019-02-19 | Outpatient (CLI) | payer BC ==
[~2019-02-19] MED LIST changes: -ISOVUE-370 76% 100ML VIAL (Q9967) As Ordered ONE
--- NOTE | 2019-02-19 15:26 | REPMRS ---
Patient History The patient states she has not had a clinical breast exam in over a year. Family history of colorectal cancer at age 52 in maternal aunt. 3D TOMOSYNTHESIS WAS PERFORMED. The Hetal Gonzales lifetime risk for breast cancer is 8.6%. Digital Woman Screen Mammo: February 19, 2019 - Exam #: [id number] Bilateral CC and MLO view(s) were taken. Technologist: Irish Vigil Technologist Prior study comparison: November 14, 2015, digital mammo diagnostic bilateral, performed at [facility]. FINDINGS: The breast tissue is heterogeneously dense. This may lower the sensitivity of mammography. There has been no change in the appearance of the mammogram from the prior studies. There is a moderate amount of residual fibroglandular tissue which is fairly symmetric. There is no interval development of dominant mass, areas of architectural distortion, or clustered microcalcification typical of malignancy. Assessment: BI-RADS/ACR category 1 mammogram. Negative Mammogram. Recommendation Routine screening mammogram in 1 year (for women over age 40). This mammogram was interpreted with the aid of an FDA-approved computer-aided dectection system. Electronically Signed By: Alejo aOkes MD 02/19/19 [id number]
--- NOTE | 2019-02-24 15:44 | DEXA ---
AP SPINE L1 - L4 1.540 2.8 2.9 LT FEMUR TOTAL 1.183 1.4 1.7 LT NECK 1.119 0.6 1.2 RT FEMUR TOTAL 1.227 1.7 2.1 RT NECK 1.098 0.4 1.1 TOTAL BODY TOTAL OTHER COMMENTS: Normal bone densitometry of the spine and hips. FOLLOW-UP: Recommendation for the next bone density exam: 5 years. CODY
== END ==
LOC: M WHC 14:02
PROVIDERS: ATTEND Nurse Practitioner Family
DX: Z12.31 Encounter for screening mammogram for malignant neoplasm of breast (principal); Z13.820 Encounter for screening for osteoporosis

== ENCOUNTER → 2019-03-24 | Outpatient (CLI) | payer BC ==
[2019-03-24 18:28] LABS: BASO % 0.3 % (0.0-1.0); EOS % 0.3 % (0.0-3.0); HEMATOCRIT 41.8 % (36.0-47.0); HEMOGLOBIN 13.3 g/dl (12.0-15.5); LYMPH # 1.3 10^3/uL (1.5-5.0); LYMPH % 11.6 % (24.0-44.0); MEAN CORPUSCULAR HGB CONC 31.8 g/dl (32.0-36.5); MEAN CORPUSCULAR VOLUME 91.3 fl (80.0-96.0); MONO # 0.8 10^3/uL (0.0-0.8); MONO % 7.2 % (0.0-5.0); NEUTROPHILS # 9.1 10^3/uL (1.5-8.5); NEUTROPHILS % 79.5 % (36.0-66.0); PLATELET COUNT, AUTOMATED 284 10^3/uL (150-450); RED BLOOD COUNT 4.58 10^6/uL (4.00-5.40); WHITE BLOOD COUNT 11.5 10^3/uL (4.0-10.0)
[2019-03-24 18:47] LABS: ALBUMIN 3.8 GM/DL (3.2-5.2); ALT/SGPT 18 U/L (12-78); BILIRUBIN,TOTAL 0.7 MG/DL (0.2-1.0); BLOOD UREA NITROGEN 10 MG/DL (7-18); CALCIUM LEVEL 9.7 MG/DL (8.5-10.1); CARBON DIOXIDE LEVEL 29 MEQ/L (21-32); CHLORIDE LEVEL 106 MEQ/L (98-107); CREATININE FOR GFR 0.91 MG/DL (0.55-1.30); GLOMERULAR FILTRATION RATE > 60.0 (>58); GLUCOSE, FASTING 72 MG/DL (70-100); POTASSIUM SERUM 4.1 MEQ/L (3.5-5.1); SODIUM LEVEL 139 MEQ/L (136-145); TOTAL PROTEIN 6.8 GM/DL (6.4-8.2)
== END ==
LOC: M LAB 17:25
PROVIDERS: ATTEND Internal Medicine Pulmonary Disease
DX: D86.2 Sarcoidosis of lung with sarcoidosis of lymph nodes (principal)

== ENCOUNTER → 2019-05-14 | Outpatient (CLI) | payer BC ==
[~2019-05-14] MED LIST changes: -VALA1TAB2 PO; +VALA1TAB64 PO
[2019-05-14 17:57] LABS: BASO % 0.5 % (0.0-1.0); EOS # 0.1 10^3/uL (0.0-0.5); EOS % 0.9 % (0.0-3.0); HEMOGLOBIN 13.3 g/dl (12.0-15.5); LYMPH # 0.9 10^3/uL (1.5-5.0); LYMPH % 13.5 % (24.0-44.0); MEAN CORPUSCULAR HEMOGLOBIN 30.2 pg (27.0-33.0); MEAN CORPUSCULAR HGB CONC 32.4 g/dl (32.0-36.5); MONO # 0.4 10^3/uL (0.0-0.8); MONO % 6.4 % (0.0-5.0); NEUTROPHILS # 5.2 10^3/uL (1.5-8.5); NEUTROPHILS % 77.9 % (36.0-66.0); PLATELET COUNT, AUTOMATED 264 10^3/uL (150-450); RED BLOOD COUNT 4.41 10^6/uL (4.00-5.40); WHITE BLOOD COUNT 6.6 10^3/uL (4.0-10.0)
[2019-05-14 18:04] LABS: ALBUMIN 3.8 GM/DL (3.2-5.2); ALT/SGPT 23 U/L (12-78); BILIRUBIN,TOTAL 0.9 MG/DL (0.2-1.0); BLOOD UREA NITROGEN 12 MG/DL (7-18); CALCIUM LEVEL 9.5 MG/DL (8.5-10.1); CARBON DIOXIDE LEVEL 30 MEQ/L (21-32); CHLORIDE LEVEL 106 MEQ/L (98-107); CREATININE FOR GFR 0.98 MG/DL (0.55-1.30); GLOMERULAR FILTRATION RATE > 60.0 (>58); GLUCOSE, FASTING 81 MG/DL (70-100); POTASSIUM SERUM 4.4 MEQ/L (3.5-5.1); SODIUM LEVEL 142 MEQ/L (136-145); TOTAL PROTEIN 6.7 GM/DL (6.4-8.2)
== END ==
LOC: M PLALAB 14:32
PROVIDERS: ATTEND Internal Medicine Pulmonary Disease
DX: D86.2 Sarcoidosis of lung with sarcoidosis of lymph nodes (principal)

== ENCOUNTER 2019-06-26 15:20 | Emergency (ER) | payer BC ==
[~2019-06-26] VITALS: Ht 157.5 cm; Wt 82.8 kg
[~2019-06-26 15:20] MED LIST changes: +VALA1TAB5 PO; -VALA1TAB64 PO
[2019-06-26] MEDS ORDERED: METH2.5T48 PO (15:29)
[2019-06-26] MEDS ORDERED: FISH1000 PO (15:29)
[2019-06-26] MEDS ORDERED: FOLI400T PO (15:29)
[2019-06-26 16:19] LABS: BASO % 0.8 % (0.0-1.0); EOS % 0.4 % (0.0-3.0); HEMATOCRIT 40.1 % (36.0-47.0); HEMOGLOBIN 13.3 g/dl (12.0-15.5); LYMPH # 0.9 10^3/uL (1.5-5.0); LYMPH % 17.3 % (24.0-44.0); MEAN CORPUSCULAR HEMOGLOBIN 30.8 pg (27.0-33.0); MEAN CORPUSCULAR HGB CONC 33.2 g/dl (32.0-36.5); MEAN CORPUSCULAR VOLUME 92.8 fl (80.0-96.0); MONO # 0.3 10^3/uL (0.0-0.8); MONO % 6.3 % (0.0-5.0); NEUTROPHILS # 3.8 10^3/uL (1.5-8.5); NEUTROPHILS % 74.8 % (36.0-66.0); PLATELET COUNT, AUTOMATED 284 10^3/uL (150-450); RED BLOOD COUNT 4.32 10^6/uL (4.00-5.40)
[2019-06-26] MEDS ORDERED: ONDANSETRON 4MG/2ML VIAL (J2405) IV ONE (16:30)
[2019-06-26] MEDS ORDERED: NS 1,000 ML IV ONE (16:30)
[2019-06-26] MEDS ORDERED: MORPHINE 4 MG/ML 1ML VIAL/SYRINGE (J2270) IV ONE (16:30)
[2019-06-26 16:48] LABS: ALT/SGPT 45 U/L (12-78); BILIRUBIN,DIRECT 0.2 MG/DL (0.0-0.2); BILIRUBIN,TOTAL 1.2 MG/DL (0.2-1.0); BLOOD UREA NITROGEN 10 MG/DL (7-18); CALCIUM LEVEL 9.7 MG/DL (8.5-10.1); CARBON DIOXIDE LEVEL 26 MEQ/L (21-32); CHLORIDE LEVEL 106 MEQ/L (98-107); CREATININE FOR GFR 0.96 MG/DL (0.55-1.30); GLOMERULAR FILTRATION RATE > 60.0 (>58); GLUCOSE, FASTING 94 MG/DL (70-100); LIPASE 216 U/L (73-393); POTASSIUM SERUM 4.1 MEQ/L (3.5-5.1); SODIUM LEVEL 138 MEQ/L (136-145); TOTAL PROTEIN 6.8 GM/DL (6.4-8.2)
[2019-06-26] MEDS ORDERED: ISOVUE-370 76% 100ML VIAL (Q9967) As Ordered ONE (16:51)
--- NOTE | 2019-06-26 17:51 | REPVR ---
PROCEDURE INFORMATION: Exam: CT Abdomen And Pelvis With Contrast Exam date and time: 06/26/2019 5:01 PM Age: 49 years old Clinical indication: Abdominal pain; Localized; Left lower quadrant (llq); Patient HX: ? Divertic; Additional info: Llq pain, possible diverticulitis TECHNIQUE: Imaging protocol: Computed tomography of the abdomen and pelvis with intravenous contrast. Radiation optimization: All CT scans at this facility use at least one of these dose optimization techniques: automated exposure control; mA and/or kV adjustment per patient size (includes targeted exams where dose is matched to clinical indication); or iterative reconstruction. Contrast material: ISOVUE 370; Contrast volume: 100 ml; Contrast route: IV; COMPARISON: CT ABD PELVIS W/O CONTRAST 12/05/2017 8:01 PM FINDINGS: Liver: Normal. No mass. Gallbladder and bile ducts: There has been a cholecystectomy. Pancreas: Normal. No ductal dilation. Spleen: Borderline splenomegaly. Adrenals: Normal. No mass. Kidneys and ureters: Normal. No hydronephrosis. Stomach and bowel: There is inflammation adjacent to the mid sigmoid colon adjacent to the left pelvic sidewall, findings which may indicate the presence of mild uncomplicated diverticulitis. Appendix: No evidence of appendicitis. Intraperitoneal space: Unremarkable. No free air. No significant fluid collection. Vasculature: Unremarkable. No abdominal aortic aneurysm. Lymph nodes: Unremarkable. No enlarged lymph nodes. Bladder: Unremarkable as visualized. Reproductive: There has been a hysterectomy. Bones/joints: Unremarkable. No acute fracture. Soft tissues: Unremarkable. IMPRESSION: 1. There has been a cholecystectomy. 2. There has been a hysterectomy. 3. There is inflammation adjacent to the mid sigmoid colon adjacent to the left pelvic sidewall, findings which may indicate the presence of mild uncomplicated diverticulitis. Electronically signed by: Adán Hurtado On 06/26/2019 17:51:08 PM
[2019-06-26] MEDS ORDERED: CIPROFLOXACIN 500 MG TAB PO ONE (18:00)
[2019-06-26] MEDS ORDERED: metroNIDAZOLE (FLAGYL) 500 MG TAB PO ONE (18:00)
[2019-06-26] MEDS ORDERED: CIPR-249 PO (18:15)
[2019-06-26] MEDS ORDERED: FLAG500T PO (18:15)
[2019-06-26] MEDS ORDERED: ULTR50TA8 PO (18:42)
[2019-06-26 18:43] VITALS: BP 114/74
== END 2019-06-26 19:00 | disposition home or self-care (01) ==
LOC: M ED 15:20
DX: K57.32 Diverticulitis of large intestine without perforation or abscess without bleeding (principal); Z88.8 Allergy status to other drugs, medicaments and biological substances
CPT/HCPCS: 74177; 80048; 80076; 81001; 83690; 85025; 96361; 96374; 96375; 99284; J2270; J2405; Q9967

== ENCOUNTER → 2019-08-18 | Outpatient (CLI) | payer BC ==
[~2019-08-18] MED LIST changes: +CIPR-249 PO; +FISH1000 PO; +FOLI400T PO; +METH2.5T48 PO; +ULTR50TA8 PO
== END ==
LOC: M LABSMTC 09:58
PROVIDERS: ATTEND Family Medicine
DX: Z11.59 Encounter for screening for other viral diseases (principal); Z20.828 Contact with and (suspected) exposure to other viral communicable diseases

== ENCOUNTER → 2019-08-25 | Outpatient (REF) | payer BC | LOC: M LAB REF 16:27 | PROVIDERS: ATTEND Physician Assistant | DX: J02.9 Acute pharyngitis, unspecified (principal); H92.01 Otalgia, right ear ==

== ENCOUNTER 2019-10-17 12:33 | Emergency (ER) | payer BC ==
[~2019-10-17] VITALS: Ht 160 cm; Wt 84.1 kg
[~2019-10-17 12:33] MED LIST changes: -ASPI81TA85 PO; +ASPI81TA86 PO; +GABA-282 PO; -GABA-843 PO; +PANT40TA29 PO; -PANT40TA3 PO
[2019-10-17] MEDS ORDERED: GI COCKTAIL 50ML BTL(HYOSCYAMINE/MAALOX/LIDOCAINE VISCOUS)(1:3:1) PO ONE (13:15)
[2019-10-17 13:16] LABS: BASO # 0.1 10^3/uL (0.0-0.2); BASO % 1.4 % (0.0-1.0); EOS # 0.1 10^3/uL (0.0-0.5); HEMATOCRIT 41.7 % (36.0-47.0); HEMOGLOBIN 13.8 g/dl (12.0-15.5); LYMPH # 1.2 10^3/uL (1.5-5.0); MEAN CORPUSCULAR HGB CONC 33.1 g/dl (32.0-36.5); MEAN CORPUSCULAR VOLUME 93.7 fl (80.0-96.0); MONO # 0.4 10^3/uL (0.0-0.8); MONO % 8.1 % (0.0-5.0); NEUTROPHILS # 2.7 10^3/uL (1.5-8.5); PLATELET COUNT, AUTOMATED 250 10^3/uL (150-450); RED BLOOD COUNT 4.45 10^6/uL (4.00-5.40); WHITE BLOOD COUNT 4.4 10^3/uL (4.0-10.0)
[2019-10-17] MEDS ORDERED: ONDANSETRON 4MG/2ML VIAL As Ordered ONE (13:25)
[2019-10-17] MEDS ORDERED: ONDANSETRON 4MG/2ML VIAL IV ONE (13:30)
[2019-10-17 13:37] LABS: ERYTHROCYTE SEDIMENTATION RATE 5 mm/hr (0-20)
[2019-10-17] MEDS ORDERED: FOLI1TAB11 (13:42)
[2019-10-17 13:47] LABS: ALBUMIN 3.9 GM/DL (3.2-5.2); ALT/SGPT 73 U/L (12-78); BILIRUBIN,DIRECT 0.3 MG/DL (0.0-0.2); BILIRUBIN,TOTAL 1.1 MG/DL (0.2-1.0); C REACTIVE PROTEIN QUANTITATIV < 0.30 MG/DL (0.00-0.30); LIPASE 139 U/L (73-393); NT-PRO BNP 26 PG/ML (<125); TOTAL PROTEIN 6.7 GM/DL (6.4-8.2)
[2019-10-17] MEDS ORDERED: KETOROLAC 30 MG/ML 1ML VIAL IV ONE (14:15)
[2019-10-17] MEDS ORDERED: ISOVUE-370 76% 100ML VIAL As Ordered ONE (14:27)
--- NOTE | 2019-10-17 14:30 | REP ---
CHEST: Single view. There is no evidence of acute infiltrate. No pleural effusion is seen. The heart is normal in size. The mediastinal silhouette is unremarkable. The visualized osseous structures are intact. IMPRESSION: No acute pulmonary disease. Electronically Signed by Alejo Oakes MD 10/17/2019 02:31 P
--- NOTE | 2019-10-17 15:05 | REP ---
CT ANGIOGRAM CHEST: TECHNIQUE: Axial contrast-enhanced images from the thoracic inlet to the upper abdomen using 100 mL Isovue-370 intravenous contrast material with multiplanar reformations. There are mild dependent atelectatic changes in both lungs. No consolidating infiltrate is seen. There is no pulmonary embolism. There is no thoracic aortic aneurysm or dissection. There is no mediastinal, hilar, or chest wall lymphadenopathy. There is no pleural or pericardial effusion. Heart is normal in size. IMPRESSION: No CT evidence of pulmonary embolism or other acute finding in the chest. Electronically Signed by Alejo Oakes MD 10/17/2019 03:24 P
--- NOTE | 2019-10-17 15:23 | REP ---
CT ABDOMEN AND PELVIS WITH IV CONTRAST: TECHNIQUE: Axial contrast-enhanced images from the lung bases to the pubic symphysis using 100 mL Isovue-370 intravenous contrast material with multiplanar reformations. COMPARISON: CT, 06/26/2019. The liver demonstrates no mass. The patient has had a prior cholecystectomy. There is mild prominence of the common bile duct, as expected. Spleen is normal in size with no intrinsic abnormality. Adrenal glands are normal. Pancreas demonstrates no mass or pancreatic duct dilatation. Kidneys are unremarkable with no hydronephrosis. There is no abdominal aortic aneurysm. There is no adenopathy. There is no free air or free fluid. There is no bowel wall thickening. There is sigmoid diverticulosis with no definite evidence for acute diverticulitis. The patient has had a prior appendectomy and hysterectomy. The ovaries appear unremarkable. The urinary bladder is mildly distended and unremarkable. There is a small hiatal hernia. IMPRESSION: Sigmoid diverticulosis. No acute findings in the abdomen or pelvis. Electronically Signed by Alejo Oakes MD 10/17/2019 03:24 P
[2019-10-17 15:31] VITALS: BP 101/69
[2019-10-17] MEDS ORDERED: SUCR1TA PO (15:41)
[2019-10-17] MEDS ORDERED: KETO10TAB PO (15:41)
--- NOTE | 2019-10-17 19:54 | ECGEPIP ---
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
--- NOTE | 2019-10-17 19:55 | ECGEPIP ---
[facility] - ED Test Date: 2019-10-17 Pat Name: JOVANNA QUINTERO Department: Room: - Gender: Female Clinical Services Director: edson : 1970 Requested By: ELAYNE Dupree Order Number: [id number] Reading MD: Alexa Quinones Measurements Intervals [place] Rate: 89 P: 45 IN: 118 QRS: 18 QRSD: 93 T: 64 QT: 344 QTc: 419 Interpretive Statements SINUS RHYTHM WITH SHORT IN INTERVAL LOW VOLTAGE LIMB PRWP NSTTW abnormalities Electronically Signed on 10-17-2019 19:54:54 EDT by Alexa Quinones
== END 2019-10-17 15:49 | disposition home or self-care (01) ==
LOC: EDBD 12:33 → M ED 12:33
DX: K21.9 Gastro-esophageal reflux disease without esophagitis (principal); Z88.8 Allergy status to other drugs, medicaments and biological substances
CPT/HCPCS: 71045; 71275; 74177; 80047; 80076; 83690; 83880; 84443; 84484; 85025; 85652; 86140; 93005; 93041; 94760; 96374; 96375; 99285; J1885; J2405; Q9967

== ENCOUNTER → 2019-11-17 | Outpatient (CLI) | payer BC ==
[~2019-11-17] MED LIST changes: +ASPI81TA85 PO; -ASPI81TA86 PO; +FOLI1TAB11; -GABA-282 PO; +GABA-843 PO; +KETO10TAB PO; -PANT40TA29 PO; +PANT40TA3 PO; +SUCR1TA PO
[2019-11-17 16:22] LABS: BASO # 0.1 10^3/uL (0.0-0.2); BASO % 0.6 % (0.0-1.0); EOS # 0.1 10^3/uL (0.0-0.5); EOS % 0.7 % (0.0-3.0); HEMATOCRIT 41.1 % (36.0-47.0); HEMOGLOBIN 13.3 g/dl (12.0-15.5); LYMPH % 11.6 % (24.0-44.0); MEAN CORPUSCULAR HGB CONC 32.4 g/dl (32.0-36.5); MEAN CORPUSCULAR VOLUME 95.8 fl (80.0-96.0); MONO # 0.6 10^3/uL (0.0-0.8); MONO % 6.7 % (0.0-5.0); NEUTROPHILS # 6.6 10^3/uL (1.5-8.5); NEUTROPHILS % 79.1 % (36.0-66.0); PLATELET COUNT, AUTOMATED 298 10^3/uL (150-450); RED BLOOD COUNT 4.29 10^6/uL (4.00-5.40); WHITE BLOOD COUNT 8.4 10^3/uL (4.0-10.0)
[2019-11-17 17:14] LABS: ALBUMIN 3.8 GM/DL (3.2-5.2); BILIRUBIN,TOTAL 0.8 MG/DL (0.2-1.0); CALCIUM LEVEL 9.4 MG/DL (8.5-10.1); CREATININE FOR GFR 1.1 MG/DL (0.55-1.30); GLOMERULAR FILTRATION RATE 56.7 (>58); POTASSIUM SERUM 4.3 MEQ/L (3.5-5.1); TOTAL 25(OH) VITAMIN D 22.1 NG/ML (30.0-100.0); TOTAL PROTEIN 6.9 GM/DL (6.4-8.2)
[2019-11-26 23:10] LABS: METANEPHRINE PLASMA 44.2 pg/mL (0.0-88.0); NORMETANEPHRINE PLASMA 54.2 pg/mL (0.0-125.8); VITAMIN D 1,25 DIHYDROXY 61.1 pg/mL (19.9-79.3)
== END ==
LOC: M LAB 15:29
PROVIDERS: ATTEND Internal Medicine Pulmonary Disease
DX: D86.2 Sarcoidosis of lung with sarcoidosis of lymph nodes (principal)

== ENCOUNTER → 2019-11-29 | Outpatient (REF) | payer BC ==
[~2019-11-29] MED LIST changes: -ASPI81TA85 PO; +ASPI81TA86 PO; +PANT40TA29 PO; -PANT40TA3 PO
[2019-12-06 18:14] LABS: METANEPHRINE TOTAL URINE 60 ug/L (Undefined); METANEPHRINE URINE 102 ug/24 hr (36-209); NORMETANEPHRINE TOTAL URINE 134 ug/L (Undefined); NORMETANEPHRINE URINE 228 ug/24 hr (131-612)
== END ==
LOC: M LAB REF 12:20
PROVIDERS: ATTEND Internal Medicine Pulmonary Disease
DX: D86.2 Sarcoidosis of lung with sarcoidosis of lymph nodes (principal)

== ENCOUNTER → 2019-12-25 | Outpatient (CLI) | payer BC | LOC: M LABSMTC 10:45 | PROVIDERS: ATTEND Pediatrics | DX: Z11.59 Encounter for screening for other viral diseases (principal); Z20.828 Contact with and (suspected) exposure to other viral communicable diseases ==

== ENCOUNTER → 2020-03-08 | Outpatient (CLI) | payer BC ==
[2020-03-08 12:30] LABS: BASO % 0.6 % (0.0-1.0); EOS # 0.1 10^3/uL (0.0-0.5); EOS % 2.1 % (0.0-3.0); HEMOGLOBIN 13.7 g/dl (12.0-15.5); LYMPH # 1.2 10^3/uL (1.5-5.0); LYMPH % 18.3 % (24.0-44.0); MEAN CORPUSCULAR HEMOGLOBIN 31.1 pg (27.0-33.0); MEAN CORPUSCULAR HGB CONC 32.6 g/dl (32.0-36.5); MEAN CORPUSCULAR VOLUME 95.5 fl (80.0-96.0); MONO # 0.8 10^3/uL (0.0-0.8); MONO % 12.4 % (0.0-5.0); NEUTROPHILS # 4.5 10^3/uL (1.5-8.5); PLATELET COUNT, AUTOMATED 271 10^3/uL (150-450); WHITE BLOOD COUNT 6.8 10^3/uL (4.0-10.0)
[2020-03-08 12:42] LABS: ALT/SGPT 222 U/L (12-78); BILIRUBIN,TOTAL 0.9 MG/DL (0.2-1.0); BLOOD UREA NITROGEN 10 MG/DL (7-18); CALCIUM LEVEL 10.4 MG/DL (8.5-10.1); CARBON DIOXIDE LEVEL 27 MEQ/L (21-32); CHLORIDE LEVEL 109 MEQ/L (98-107); CREATININE FOR GFR 0.88 MG/DL (0.55-1.30); GLOMERULAR FILTRATION RATE > 60.0 (>58); GLUCOSE, FASTING 92 MG/DL (70-100); SODIUM LEVEL 140 MEQ/L (136-145); TOTAL PROTEIN 6.9 GM/DL (6.4-8.2)
== END ==
LOC: M LAB 11:43
PROVIDERS: ATTEND Internal Medicine Pulmonary Disease
DX: D86.2 Sarcoidosis of lung with sarcoidosis of lymph nodes (principal)

== ENCOUNTER → 2020-03-15 | Outpatient (CLI) | payer BC ==
[2020-03-15 14:45] LABS: BASO # 0.1 10^3/uL (0.0-0.2); BASO % 0.9 % (0.0-1.0); EOS % 0.5 % (0.0-3.0); HEMATOCRIT 41.3 % (36.0-47.0); HEMOGLOBIN 13.3 g/dl (12.0-15.5); LYMPH # 1.1 10^3/uL (1.5-5.0); LYMPH % 17.4 % (24.0-44.0); MEAN CORPUSCULAR HEMOGLOBIN 30.3 pg (27.0-33.0); MEAN CORPUSCULAR HGB CONC 32.2 g/dl (32.0-36.5); MEAN CORPUSCULAR VOLUME 94.1 fl (80.0-96.0); MONO # 0.5 10^3/uL (0.0-0.8); MONO % 7.4 % (0.0-5.0); NEUTROPHILS # 4.6 10^3/uL (1.5-8.5); NEUTROPHILS % 73.2 % (36.0-66.0); PLATELET COUNT, AUTOMATED 266 10^3/uL (150-450); RED BLOOD COUNT 4.39 10^6/uL (4.00-5.40); WHITE BLOOD COUNT 6.3 10^3/uL (4.0-10.0)
[2020-03-15 15:06] LABS: ALT/SGPT 68 U/L (12-78); BILIRUBIN,TOTAL 1.2 MG/DL (0.2-1.0); BLOOD UREA NITROGEN 7 MG/DL (7-18); CALCIUM LEVEL 9.9 MG/DL (8.5-10.1); CARBON DIOXIDE LEVEL 25 MEQ/L (21-32); CHLORIDE LEVEL 108 MEQ/L (98-107); CREATININE FOR GFR 0.87 MG/DL (0.55-1.30); GLOMERULAR FILTRATION RATE > 60.0 (>58); GLUCOSE, FASTING 95 MG/DL (70-100); POTASSIUM SERUM 4.1 MEQ/L (3.5-5.1); SODIUM LEVEL 140 MEQ/L (136-145); TOTAL PROTEIN 6.6 GM/DL (6.4-8.2)
== END ==
LOC: M LAB 14:11
PROVIDERS: ATTEND Internal Medicine Pulmonary Disease
DX: D86.2 Sarcoidosis of lung with sarcoidosis of lymph nodes (principal)

== ENCOUNTER → 2020-03-21 | Outpatient (CLI) | payer BC ==
--- NOTE | 2020-03-21 11:22 | REP ---
INDICATION: SARCOIDOSIS OF CHEST / ENLARGED LYMPHNODE/FILE ROOM AREA. COMPARISON: Ultrasound 06/05/2017. TECHNIQUE: Real-time sonographic evaluation of ABDOMEN performed. FINDINGS: The gallbladder has been surgically removed. There is no intrahepatic or extrahepatic biliary dilatation, common bile duct measures 5 mm in maximum diameter. The liver and pancreas demonstrates homogeneous echotexture with no gross mass. The pancreas is not optimally seen due to overlying bowel gas. Spleen is normal in size with no intrinsic abnormality, measuring 10.7 cm in length. There is no evidence of hydronephrosis, cyst, mass, or calculus in either kidney. The right kidney measures 9.8 x 4.8 x 4.2 cm. Left renal dimensions are 10.4 x 4.5 x 4.5 cm. The abdominal aorta is normal in caliber with no aneurysm. Proximally the abdominal aorta measures 2.5 cm in AP dimension, mid and distal aspects measure 1.8 cm. No free fluid is seen. IMPRESSION: Status post cholecystectomy without biliary dilatation or free fluid. Otherwise unremarkable abdominal ultrasound. <Electronically signed by Alejo Oakes > 03/21/20 [id number]
== END ==
LOC: M RAD 08:57
PROVIDERS: ATTEND Internal Medicine Pulmonary Disease
DX: D86.2 Sarcoidosis of lung with sarcoidosis of lymph nodes (principal); Z90.49 Acquired absence of other specified parts of digestive tract

== ENCOUNTER → 2020-03-30 | Outpatient (CLI) | payer BC ==
[2020-03-30 12:47] LABS: BASO % 0.8 % (0.0-1.0); EOS # 0.1 10^3/uL (0.0-0.5); EOS % 2.2 % (0.0-3.0); HEMOGLOBIN 13.6 g/dl (12.0-15.5); LYMPH # 1.2 10^3/uL (1.5-5.0); LYMPH % 22.6 % (24.0-44.0); MEAN CORPUSCULAR HEMOGLOBIN 30.2 pg (27.0-33.0); MEAN CORPUSCULAR HGB CONC 32.4 g/dl (32.0-36.5); MEAN CORPUSCULAR VOLUME 93.3 fl (80.0-96.0); MONO # 0.6 10^3/uL (0.0-0.8); MONO % 11.8 % (0.0-5.0); NEUTROPHILS # 3.1 10^3/uL (1.5-8.5); NEUTROPHILS % 61.8 % (36.0-66.0); PLATELET COUNT, AUTOMATED 239 10^3/uL (150-450); WHITE BLOOD COUNT 5.1 10^3/uL (4.0-10.0)
[2020-03-30 14:16] LABS: ALBUMIN 3.9 GM/DL (3.2-5.2); ALT/SGPT 62 U/L (12-78); AMYLASE 73 U/L (25-115); BILIRUBIN,DIRECT 0.3 MG/DL (0.0-0.2); BILIRUBIN,TOTAL 1.3 MG/DL (0.2-1.0); CALCIUM LEVEL 10.2 MG/DL (8.5-10.1); CREATININE FOR GFR 0.87 MG/DL (0.55-1.30); GLOMERULAR FILTRATION RATE > 60.0 (>58); LIPASE 234 U/L (73-393); TOTAL PROTEIN 6.8 GM/DL (6.4-8.2)
== END ==
LOC: M LAB 11:42
PROVIDERS: ATTEND Internal Medicine Pulmonary Disease
DX: D86.2 Sarcoidosis of lung with sarcoidosis of lymph nodes (principal)

== ENCOUNTER 2020-06-18 11:57 | Emergency (ER) | payer BC ==
[~2020-06-18] VITALS: Ht 160 cm; Wt 80.4 kg
[~2020-06-18 11:57] MED LIST changes: +GABA-282 PO; -GABA-843 PO
--- OUTSIDE RECORDS SUMMARY | 2020-06-18 12:06 | CCD | Continuity of Care Document ---
Author Author Melida ACOSTA M.D. Organization Unknown Address [address] [place] [address] Phone [phone] Care Team Providers Care Adult Basic Education Instructor Name Role Phone Belinda Rivero [facility] [phone] Problems Description No Information Available Social History Type Date Description Comments Sex Unknown Tobacco Use Start: Unknown Never Smoked Cigarettes Smoking Status Reviewed: 03/17/20 Never Smoked Cigarettes ETOH Use Denies alcohol use Recreational Drug Use Denies Drug Use Tobacco Use Start: Unknown Patient has never smoked Exercise Type/Frequency Exercises regularly Allergies, Adverse Reactions, Alerts Active Allergies Reaction Severity Comments Date Reglan Anxiety 09/22/2018 Phenergan hallucinations 09/22/2018 Inactive Allergies NKDA 12/09/2017 Medications Active Medications SIG Qnty Indications Ordering Provide r Date Plaquenil 200mg Tablets 1 tab by mouth twice a day 60tabs D86.2 Malinda Acosta M.D. 03/17/2020 Qvar Redihaler 80mcg/Act Aerosol inhale one puffs by mouth twice a day as needed 10.600gm D86.2 Malinda Acosta M.D. 03/17/2020 Prednisone 5mg Tablets Take as directed according to deyvi mdd 2 60tabs Malinda Acosta M.D. 04/06/2019 Folic Acid 1mg Tablets 1 by mouth every day 30tabs D86.2 Malinda Acosta M.D. 02/24/[address] 1 by mouth every day 30caps Malinda Acosta M.D. 11/17/2018 Breo Ellipta 200-25mcg/Inh Aerosol 1 puff inhaled every day 60units L92.9 Malinda Acosta M.D. 9 Pro Comfort Inhaler Spacer Chamber Adult Misc use with inhaler as directed 1units R59.0 Sapna Acosta M.D. 11/06/2018 Albuterol Sulfate HFA 108(90Base) mcg/Act Aerosol 2 puffs twice a day as needed 8.500gm Nara Acosta M.D. Botox every 3 months for headaches Unknown History Medications Methotrexate 2.5mg Tablets 6 tabs weekly with folic acid 12tabs D86.2 Malinda Acosta M.D. 11/18/2019 - 06/17/2019 Immunizations CPT Code Status Date Vaccine Lot # [id number] Given 03/03/2019 Afluria, Quadrivalent, 0.5ml , [facility]# [id number] Given 02/24/2019 Afluria, Quadrivalent, 0.5ml , [facility]# [id number] Vital Signs Date Vital Result Comment 03/17/2020 11:36am BP Systolic 118 mmHg BP Diastolic 70 mmHg Heart Rate 80 /min O2 % BldC Oximetry 98 % Room Air Height 64 inches 5'4" Weight 178.00 lb BMI (Body Mass Index) 30.6 kg/m2 [place] Body Weight 120 lb Weight 80.741 kg 01/28/2020 8:35am Height 64 inches 5'4" [place] Body Weight 120 lb Results Test Acquired Date Facility Test Result H/L Range Note CBC With Differential 03/15/2020 [facility] Main Lab [address] [place] [address] [phone] White Blood Count 6.3 10 Normal 4.0-10.0 Red Blood Count 4.39 10 Normal 4.00-5.40 Hemoglobin 13.3 g/dL Normal 12.0-15.5 Hematocrit 41.3 % Normal 36.0-47.0 Mean Corpuscular Volume 94.1 fl Normal 80.0-96.0 Mean Corpuscular Hemoglobin 30.3 pg Normal 27.0-33.0 Mean Corpuscular HGB Conc 32.2 g/dL Normal 32.0-36.5 Red Cell Distribution Width 14.1 % Normal 11.5-14.5 Platelet Count, Automated 266 10 Normal 150-450 Neutrophils % 73.2 % High 36.0-66.0 Lymph % 17.4 % Low 24.0-44.0 [place] % 7.4 % High 0.0-5.0 Eos % 0.5 % Normal 0.0-3.0 Baso % 0.9 % Normal 0.0-1.0 Immature Granulocyte % 0.6 % Normal 0-3.0 Nucleated Red Blood Cell % 0.0 % Normal 0-0 Neutrophils # 4.6 10 Normal 1.5-8.5 Lymph # 1.1 10 Low 1.5-5.0 [place] # 0.5 10 Normal 0.0-0.8 Eos # 0.0 10 Normal 0.0-0.5 Baso # 0.1 10 Normal 0.0-0.2 Comprehensive Metabolic Profil 03/15/2020 [facility] Main Lab [address] [place] [address] [phone] Glucose, Fasting 95 mg/dL Normal 70-100 Blood Urea Nitrogen 7 mg/dL Normal 7-18 Creatinine For GFR 0.87 mg/dL Normal 0.55-1.30 Glomerular Filtration Rate > 60.0 Normal >58 1 Sodium Level 140 mEq/L Normal 136-145 Potassium Serum 4.1 mEq/L Normal 3.5-5.1 Chloride Level 108 mEq/L High 98-107 Carbon Dioxide Level 25 mEq/L Normal 21-32 Anion Gap 7 mEq/L Low 8-16 Calcium Level 9.9 mg/dL Normal 8.5-10.1 Ast/Sgot 21 U/L Normal 7-37 Alt/SGPT 68 U/L Normal 12-78 Alkaline Phosphatase 72 U/L Normal 45-117 Bilirubin,Total 1.2 mg/dL High 0.2-1.0 Total Protein 6.6 GM/DL Normal 6.4-8.2 Albumin 4.0 GM/DL Normal 3.2-5.2 Albumin/Globulin Ratio 1.5 Normal 1.2-2.2 CBC With Differential 03/08/2020 [facility] Main Lab [address] [place] [address] [phone] White Blood Count 6.8 10 Normal 4.0-10.0 Red Blood Count 4.40 10 Normal 4.00-5.40 Hemoglobin 13.7 g/dL Normal 12.0-15.5 Hematocrit 42.0 % Normal 36.0-47.0 Mean Corpuscular Volume 95.5 fl Normal 80.0-96.0 Mean Corpuscular Hemoglobin 31.1 pg Normal 27.0-33.0 Mean Corpuscular HGB Conc 32.6 g/dL Normal 32.0-36.5 Red Cell Distribution Width 14.3 % Normal 11.5-14.5 Platelet Count, Automated 271 10 Normal 150-450 Neutrophils % 66.0 % Normal 36.0-66.0 Lymph % 18.3 % Low 24.0-44.0 [place] % 12.4 % High 0.0-5.0 Eos % 2.1 % Normal 0.0-3.0 Baso % 0.6 % Normal 0.0-1.0 Immature Granulocyte % 0.6 % Normal 0-3.0 Nucleated Red Blood Cell % 0.0 % Normal 0-0 Neutrophils # 4.5 10 Normal 1.5-8.5 Lymph # 1.2 10 Low 1.5-5.0 [place] # 0.8 10 Normal 0.0-0.8 Eos # 0.1 10 Normal 0.0-0.5 Baso # 0.0 10 Normal 0.0-0.2 Comprehensive Metabolic Profil 03/08/2020 [facility] Main Lab [address] [place] [address] [phone] Glucose, Fasting 92 mg/dL Normal 70-100 Blood Urea Nitrogen 10 mg/dL Normal 7-18 Creatinine For GFR 0.88 mg/dL Normal 0.55-1.30 Glomerular Filtration Rate > 60.0 Normal >58 2 Sodium Level 140 mEq/L Normal 136-145 Potassium Serum 4.0 mEq/L Normal 3.5-5.1 Chloride Level 109 mEq/L High 98-107 Carbon Dioxide Level 27 mEq/L Normal 21-32 Anion Gap 4 mEq/L Low 8-16 Calcium Level 10.4 mg/dL High 8.5-10.1 Ast/Sgot 100 U/L High 7-37 Alt/SGPT 222 U/L High 12-78 Alkaline Phosphatase 70 U/L Normal 45-117 Bilirubin,Total 0.9 mg/dL Normal 0.2-1.0 Total Protein 6.9 GM/DL Normal 6.4-8.2 Albumin 4.0 GM/DL Normal 3.2-5.2 Albumin/Globulin Ratio 1.4 Normal 1.2-2.2 Urine Metanephrines Total&Free 24HR 11/29/2019 [facility] Main Lab [address] [place] [address] [phone] Normetanephrine Total Urine 134 ug/L Normal Unde fined 3 Normetanephrine Urine 228 ug/24hr Normal 131-612 Metanephrine Total Urine 60 ug/L Normal Undefined Metanephrine Urine 102 ug/24hr Normal 36-209 4 CBC With Differential 11/17/2019 [facility] Main Lab [address] [place] [address] [phone] White Blood Count 8.4 10 Normal 4.0-10.0 Red Blood Count 4.29 10 Normal 4.00-5.40 Hemoglobin 13.3 g/dL Normal 12.0-15.5 Hematocrit 41.1 % Normal 36.0-47.0 Mean Corpuscular Volume 95.8 fl Normal 80.0-96.0 Mean Corpuscular Hemoglobin 31.0 pg Normal 27.0-33.0 Mean Corpuscular HGB Conc 32.4 g/dL Normal 32.0-36.5 Red Cell Distribution Width 13.9 % Normal 11.5-14.5 Platelet Count, Automated 298 10 Normal 150-450 Neutrophils % 79.1 % High 36.0-66.0 Lymph % 11.6 % Low 24.0-44.0 [place] % 6.7 % High 0.0-5.0 Eos % 0.7 % Normal 0.0-3.0 Baso % 0.6 % Normal 0.0-1.0 Immature Granulocyte % 1.3 % Normal 0-3.0 Nucleated Red Blood Cell % 0.0 % Normal 0-0 Neutrophils # 6.6 10 Normal 1.5-8.5 Lymph # 1.0 10 Low 1.5-5.0 [place] # 0.6 10 Normal 0.0-0.8 Eos # 0.1 10 Normal 0.0-0.5 Baso # 0.1 10 Normal 0.0-0.2 Comprehensive Metabolic Profil 11/17/2019 [facility] Main Lab [address] [place] [address] [phone] Glucose, Fasting 83 mg/dL Normal 70-100 Blood Urea Nitrogen 7 mg/dL Normal 7-18 Creatinine For GFR 1.10 mg/dL Normal 0.55-1.30 Glomerular Filtration Rate 56.7 Low >58 5 Sodium Level 142 mEq/L Normal 136-145 Potassium Serum 4.3 mEq/L Normal 3.5-5.1 6 Chloride Level 111 mEq/L High 98-107 Carbon Dioxide Level 26 mEq/L Normal 21-32 Anion Gap 5 mEq/L Low 8-16 Calcium Level 9.4 mg/dL Normal 8.5-10.1 Ast/Sgot 22 U/L Normal 7-37 Alt/SGPT 50 U/L Normal 12-78 Alkaline Phosphatase 66 U/L Normal 45-117 Bilirubin,Total 0.8 mg/dL Normal 0.2-1.0 Total Protein 6.9 GM/DL Normal 6.4-8.2 Albumin 3.8 GM/DL Normal 3.2-5.2 Albumin/Globulin Ratio 1.2 Normal 1.2-2.2 Laboratory test finding 11/17/2019 [facility] Main Lab [address] [place] [address] [phone] Total 25(Oh) Vitamin D 22.1 NG/ML Low 30.0-100. 0 Metanephrines Total Plasma 11/17/2019 [facility] Main Lab [address] [place] [address] [phone] Metanephrine Plasma 44.2 pg/mL Normal 0.0-88.0 7 Normetanephrine Plasma 54.2 pg/mL Normal 0.0-125.8 8 Laboratory test finding 11/17/2019 [facility] Main Lab [address] [place] [address] [phone] Vitamin D 1,25 Dihydroxy 61.1 pg/mL Normal 19.9-79 .3 9 1 Units are mL/min/1.73 m2 Chronic Kidney Disease Staging per NKF: Stage I & II GFR >=60 Normal to Mildly Decreased Stage III GFR 30-59 Moderately Decreased Stage IV GFR 15-29 Severely Decreased Stage V GFR <15 Very Little GFR Left ESRD GFR <15 on FOREST SUPERVISOR 2 Units are mL/min/1.73 m2 Chronic Kidney Disease Staging per NKF: Stage I & II GFR >=60 Normal to Mildly Decreased Stage III GFR 30-59 Moderately Decreased Stage IV GFR 15-29 Severely Decreased Stage V GFR <15 Very Little GFR Left ESRD GFR <15 on FOREST SUPERVISOR 3 will discuss at follow-up 4 Performed at: [facility] [employer] [id number] Second Worker: Jeison Hart MD, Phone: [phone] 5 Units are mL/min/1.73 m2 Chronic Kidney Disease Staging per NKF: Stage I & II GFR >=60 Normal to Mildly Decreased Stage III GFR 30-59 Moderately Decreased Stage IV GFR 15-29 Severely Decreased Stage V GFR <15 Very Little GFR Left ESRD GFR <15 on FOREST SUPERVISOR 6 This specimen has an elevate d potassium level but there is NO visible hemolysis noted. 7 Please note reference inte rval change 8 Please note reference inte rval change 9 Performed at: [employer] [id number] Second Worker: Jeison Hart MD, Phone: [phone] Procedures Description No Information Available Medical Devices Description No Information Available Encounters Type Date Location Provider Dx Diagnosis Office Visit 11/18/2019 3:00p [facility] K Malinda park M.D. 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 03/17/2020 L92.9 Granulomatous disorder of the sk in and subcutaneous tissue, Malinda Acosta M.D. 03/17/2020 R10.84 Generalized abdominal pain Malinda Dawson M.D. 11/18/2019 D86.2 Sarcoidosis of lung with sarcoid osis of lymph nodes Malinda Acosta M.D. 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 * L92.9 Granulomatous disorder of the skin and subcutaneous tissue, * R10.84 Generalized abdominal pain * * New Medication:* Plaquenil 200 mg * Qvar Redihaler 80 mcg/Act * New Labs:* Sarcoid Panel, Ordered: 03/17/20 * Amylase & Lipase, Ordered: 03/17/20 * New Orders:* ECHO With Doppler, Scheduled: 03/31/20 * Follow up:* Follow-up after ECHO and Ultrasound of abdomen Functional Status Functional Condition Comment Date Status Independent with all ADL's Activ e Independent with all IADL's Acti ve Mental Status Mental Condition Comment Date Status None Active Can understand information Activ e Referrals Refer to Dr Reason for Referral Status Appt Date Radiology/[place] [id number] Created Radiology/Procedure auth [facility] [id number] [id number] Created
--- OUTSIDE RECORDS SUMMARY | 2020-06-18 12:06 | CCD | Continuity of Care Document ---
Author Author Melida ACOSTA M.D. Organization Unknown Address [address] [place] [address] Phone [phone] Care Team Providers Care Wool Shearer Name Role Phone Belinda Rivero [facility] [phone] Problems Description No Information Available Social History [...] CPT Code Status Date Vaccine Lot # [id number] Given 03/03/2019 Afluria, Quadrivalent, 0.5ml , [facility]# [id number] Given 02/24/2019 Afluria, Quadrivalent, 0.5ml , [facility]# [id number] Vital Signs Date Vital Result Comment 03/17/2020 11:36am BP Systolic 118 mmHg BP Diastolic 70 mmHg Heart Rate 80 /min O2 % BldC Oximetry 98 % Room Air Height 64 inches 5'4" Weight 178.00 lb BMI (Body Mass Index) 30.6 kg/m2 [place] Body Weight 120 lb Weight 80.741 kg 01/28/2020 8:35am Height 64 inches 5'4" [place] Body Weight 120 lb Results Test Acquired Date Facility Test Result H/L Range Note CBC With Differential 03/15/2020 [facility] Main Lab [address] [place] [address] [phone] White Blood Count 6.3 10 Normal 4.0-10.0 [...] 36.0-66.0 Lymph % 17.4 % Low 24.0-44.0 [place] % 7.4 % High 0.0-5.0 Eos % 0.5 % Normal 0.0-3.0 Baso % 0.9 % Normal 0.0-1.0 Immature Granulocyte % 0.6 % Normal 0-3.0 Nucleated Red Blood Cell % 0.0 % Normal 0-0 Neutrophils # 4.6 10 Normal 1.5-8.5 Lymph # 1.1 10 Low 1.5-5.0 [place] # 0.5 10 Normal 0.0-0.8 Eos # 0.0 10 Normal 0.0-0.5 Baso # 0.1 10 Normal 0.0-0.2 Comprehensive Metabolic Profil 03/15/2020 [facility] Main Lab [address] [place] [address] [phone] Glucose, Fasting 95 mg/dL Normal 70-100 Blood [...] 1.5 Normal 1.2-2.2 CBC With Differential 03/08/2020 [facility] Main Lab [address] [place] [address] [phone] White Blood Count 6.8 10 Normal 4.0-10.0 [...] 36.0-66.0 Lymph % 18.3 % Low 24.0-44.0 [place] % 12.4 % High 0.0-5.0 Eos % 2.1 % Normal 0.0-3.0 Baso % 0.6 % Normal 0.0-1.0 Immature Granulocyte % 0.6 % Normal 0-3.0 Nucleated Red Blood Cell % 0.0 % Normal 0-0 Neutrophils # 4.5 10 Normal 1.5-8.5 Lymph # 1.2 10 Low 1.5-5.0 [place] # 0.8 10 Normal 0.0-0.8 Eos # 0.1 10 Normal 0.0-0.5 Baso # 0.0 10 Normal 0.0-0.2 Comprehensive Metabolic Profil 03/08/2020 [facility] Main Lab [address] [place] [address] [phone] Glucose, Fasting 92 mg/dL Normal 70-100 Blood [...] Normal 1.2-2.2 Urine Metanephrines Total&Free 24HR 11/29/2019 [facility] Main Lab [address] [place] [address] [phone] Normetanephrine Total Urine 134 ug/L Normal Unde fined 3 Normetanephrine Urine 228 ug/24hr Normal 131-612 Metanephrine Total Urine 60 ug/L Normal Undefined Metanephrine Urine 102 ug/24hr Normal 36-209 4 CBC With Differential 11/17/2019 [facility] Main Lab [address] [place] [address] [phone] White Blood Count 8.4 10 Normal 4.0-10.0 [...] 36.0-66.0 Lymph % 11.6 % Low 24.0-44.0 [place] % 6.7 % High 0.0-5.0 Eos % 0.7 % Normal 0.0-3.0 Baso % 0.6 % Normal 0.0-1.0 Immature Granulocyte % 1.3 % Normal 0-3.0 Nucleated Red Blood Cell % 0.0 % Normal 0-0 Neutrophils # 6.6 10 Normal 1.5-8.5 Lymph # 1.0 10 Low 1.5-5.0 [place] # 0.6 10 Normal 0.0-0.8 Eos # 0.1 10 Normal 0.0-0.5 Baso # 0.1 10 Normal 0.0-0.2 Comprehensive Metabolic Profil 11/17/2019 [facility] Main Lab [address] [place] [address] [phone] Glucose, Fasting 83 mg/dL Normal 70-100 Blood [...] 1.2 Normal 1.2-2.2 Laboratory test finding 11/17/2019 [facility] Main Lab [address] [place] [address] [phone] Total 25(Oh) Vitamin D 22.1 NG/ML Low 30.0-100. 0 Metanephrines Total Plasma 11/17/2019 [facility] Main Lab [address] [place] [address] [phone] Metanephrine Plasma 44.2 pg/mL Normal 0.0-88.0 7 Normetanephrine Plasma 54.2 pg/mL Normal 0.0-125.8 8 Laboratory test finding 11/17/2019 [facility] Main Lab [address] [place] [address] [phone] Vitamin D 1,25 Dihydroxy 61.1 pg/mL Normal 19.9-79 .3 9 1 Units are mL/min/1.73 m2 Chronic Kidney Disease Staging per NKF: Stage I & II GFR >=60 Normal to Mildly Decreased Stage III GFR 30-59 Moderately Decreased Stage IV GFR 15-29 Severely Decreased Stage V GFR <15 Very Little GFR Left ESRD GFR <15 on GEOPHYSICAL PROSPECTING SURVEYOR 2 Units are mL/min/1.73 m2 Chronic Kidney Disease Staging per NKF: Stage I & II GFR >=60 Normal to Mildly Decreased Stage III GFR 30-59 Moderately Decreased Stage IV GFR 15-29 Severely Decreased Stage V GFR <15 Very Little GFR Left ESRD GFR <15 on GEOPHYSICAL PROSPECTING SURVEYOR 3 will discuss at follow-up 4 Performed at: [facility] [employer] [id number] Framing Specialist: Jeison Hart MD, Phone: [phone] 5 Units are mL/min/1.73 m2 Chronic Kidney Disease Staging per NKF: Stage I & II GFR >=60 Normal to Mildly Decreased Stage III GFR 30-59 Moderately Decreased Stage IV GFR 15-29 Severely Decreased Stage V GFR <15 Very Little GFR Left ESRD GFR <15 on GEOPHYSICAL PROSPECTING SURVEYOR 6 This specimen has an elevate d potassium level but there is NO visible hemolysis noted. 7 Please note reference inte rval change 8 Please note reference inte rval change 9 Performed at: [employer] [id number] Framing Specialist: Jeison Hart MD, Phone: [phone] Procedures Description No Information Available Medical Devices Description No Information Available Encounters Type Date Location Provider Dx Diagnosis Office Visit 11/18/2019 3:00p [facility]or[facility] K Malinda park M.D. D86.2 Sarcoidosis [...] Appt Date Radiology/[place]cedure [place] [id number] Created Radiology/Procedure auth [facility] [id number] Created
--- OUTSIDE RECORDS SUMMARY | 2020-06-18 12:07 | CCD ---
Author Author [facility] Organization [facility] Address Unknown Phone Unavailable Support Name Relationship Address Phone Belinda Ruiz Next Of Kin [address] [place] [address] [employer] Next Of Kin [address] [place] [id number] Gregorio Johnston MD Next Of Kin [address] [place] [address] Karma Plata Next Of Kin [address] [place] [address] CHADD BACA Next Of Kin [address] [facility] [address] [place] [address] [place] [address] [place] TIMELESS Next Of Kin [address] [place] [address] Alexandria RIZVI JR Next Of Kin [address] [id number] [employer] Next Of Kin Unknown Unavail able [place] Next Of Kin [address] [place] [address] [place] Next Of Kin Unknown Unavailable SKH* Next Of Kin [address] [place] [address] SEN GUTIERREZ Next Of Kin [address] [place] [address] UNEMPLOY[place] [address] YAMILA WELCH Next Of Kin [address] [facility] [address] [place] [address] UE Next Of Kin Unknown Unavailable [employer] [place] [address] Yamila Welch ECON [address] [facility] [address] [place] [address] Unavailable Care Team Providers Care 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 Name Role Phone Belinda Rivero BUTADIENE COMPRESSOR OPERATOR BUTADIENE COMPRESSOR OPERATOR Unavailable Unavailable CANUTE, W BREEZY MD Unavailable Unavailable CANUTE, W BREEZY MD Unavailable Unavailable CANUTE, W BREEZY MD Unavailable Unavailable CANUTE, W BREEZY MD Unavailable Unavailable CANUTE, W BREEZY MD Unavailable Unavailable CANUTE, W BREEZY MD Unavailable Unavailable CANUTE, W BREEZY MD Unavailable Unavailable CANUTE, W BREEZY MD Unavailable Unavailable CANUTE, W BREEZY MD Unavailable Unavailable CANUTE, W BREEZY MD Unavailable Unavailable CANUTE, W BREEZY MD Unavailable Unavailable CANUTE, W BREEZY MD Unavailable Unavailable CANUTE, W BREEZY MD Unavailable Unavailable CANUTE, W BREEZY MD Unavailable Unavailable CANUTE, W BREEZY MD Unavailable Unavailable CANUTE, W BREEZY MD Unavailable Unavailable CANUTE, W BREEZY MD Unavailable Unavailable CANUTE, W BREEZY MD Unavailable Unavailable CANUTE, W BREEZY MD Unavailable Unavailable CANUTE, W BREEZY MD Unavailable Unavailable CANUTE, W BREEZY MD Unavailable Unavailable CANUTE, W BREEZY MD Unavailable Unavailable CANUTE, W BREEZY MD Unavailable Unavailable CANUTE, W BREEZY MD Unavailable Unavailable CANUTE, W BREEZY MD Unavailable Unavailable CANUTE, W BREEZY MD Unavailable Unavailable CANUTE, W BREEZY MD Unavailable Unavailable CANUTE, W BREEZY MD Unavailable Unavailable CANUTE, W BREEZY MD Unavailable Unavailable CANUTE, W BREEZY MD Unavailable Unavailable CANUTE, W BREEZY MD Unavailable Unavailable CANUTE, W BREEZY MD Unavailable Unavailable CANUTE, W BREEZY MD Unavailable Unavailable CANUTE, W BREEZY MD Unavailable Unavailable CANUTE, W BREEZY MD Unavailable Unavailable CANUTE, W BREEZY MD Unavailable Unavailable CANUTE, W BREEZY MD Unavailable Unavailable CANUTE, W BREEZY MD Unavailable Unavailable CANUTE, W BREEZY MD Unavailable Unavailable CANUTE, W BREEZY MD Unavailable Unavailable CANUTE, W BREEZY MD Unavailable Unavailable CANUTE, W BREEZY MD Unavailable Unavailable CANUTE, W BREEZY MD Unavailable Unavailable CANUTE, W BREEZY MD Unavailable Unavailable CANUTE, W BREEZY MD Unavailable Unavailable CANUTE, W BREEZY MD Unavailable Unavailable CANUTE, W BREEZY MD Unavailable Unavailable CANUTE, W BREEZY MD Unavailable Unavailable CANUTE, W BREEZY MD Unavailable Unavailable CANUTE, W BREEZY MD Unavailable Unavailable CANUTE, W BREEZY MD Unavailable Unavailable CANUTE, W BREEZY MD Unavailable Unavailable CANUTE, W BREEZY MD Unavailable Unavailable CANUTE, W BREEZY MD Unavailable Unavailable CANUTE, W BREEZY MD Unavailable Unavailable CANUTE, W BREEZY MD Unavailable Unavailable CANUTE, W BREEZY MD Unavailable Unavailable CANUTE, W BREEZY MD Unavailable Unavailable CANUTE, W BREEZY MD Unavailable Unavailable CANUTE, W BREEZY MD Unavailable Unavailable CANUTE, W BREEZY MD Unavailable Unavailable CANUTE, W BREEZY MD Unavailable Unavailable CANUTE, W BREEZY MD Unavailable Unavailable CANUTE, W BREEZY MD Unavailable Unavailable CANUTE, W BREEZY MD Unavailable Unavailable CANUTE, W BREEZY MD Unavailable Unavailable CANUTE, W BREEZY MD Unavailable Unavailable CANUTE, W BREEZY MD Unavailable Unavailable CANUTE, W BREEZY MD Unavailable Unavailable CANUTE, W BREEZY MD Unavailable Unavailable CANUTE, W BREEZY MD Unavailable Unavailable CANUTE, W BREEZY MD Unavailable Unavailable CANUTE, W BREEZY MD Unavailable Unavailable CANUTE, W BREEZY MD Unavailable Unavailable CANUTE, W BREEZY MD Unavailable Unavailable CANUTE, W BREEZY MD Unavailable Unavailable CANUTE, W BREEZY MD Unavailable Unavailable CANUTE, W BREEZY MD Unavailable Unavailable CANUTE, W BREEZY MD Unavailable Unavailable CANUTE, W BREEZY MD Unavailable Unavailable CANUTE, W BREEZY MD Unavailable Unavailable CANUTE, W BREEZY MD Unavailable Unavailable CANUTE, W BREEZY MD Unavailable Unavailable CANUTE, W BREEZY MD Unavailable Unavailable CANUTE, W BREEZY MD Unavailable Unavailable CANUTE, W BREEZY MD Unavailable Unavailable CANUTE, W BREEZY MD Unavailable Unavailable CANUTE, W BREEZY MD Unavailable Unavailable CANUTE, W BREEZY MD Unavailable Unavailable CANUTE, W BREEZY MD Unavailable Unavailable CANUTE, W BREEZY MD Unavailable Unavailable CANUTE, W BREEZY MD Unavailable Unavailable CANUTE, W BREEZY MD Unavailable Unavailable CANUTE, W BREEZY MD Unavailable Unavailable CANUTE, W BREEZY MD Unavailable Unavailable CANUTE, W BREEZY MD Unavailable Unavailable CANUTE, W BREEZY MD Unavailable Unavailable Rivero, F Belinda BUTADIENE COMPRESSOR OPERATOR-BC Unavailable Unavailable Rivero, F Belinda BUTADIENE COMPRESSOR OPERATOR-BC Unavailable Unavailable Rivero, F Belinda BUTADIENE COMPRESSOR OPERATOR-BC Unavailable Unavailable Rivero, F Belinda BUTADIENE COMPRESSOR OPERATOR-BC Unavailable Unavailable Rivero, F Belinda BUTADIENE COMPRESSOR OPERATOR-BC Unavailable Unavailable Rivero, F Belinda BUTADIENE COMPRESSOR OPERATOR-BC Unavailable Unavailable Rivero, F Belinda BUTADIENE COMPRESSOR OPERATOR-BC Unavailable Unavailable Rivero, F Belinda BUTADIENE COMPRESSOR OPERATOR-BC Unavailable Unavailable Rivero, F Belinda BUTADIENE COMPRESSOR OPERATOR-BC Unavailable Unavailable Rivero, F Belinda BUTADIENE COMPRESSOR OPERATOR-BC Unavailable Unavailable Rivero, F Belinda BUTADIENE COMPRESSOR OPERATOR-BC Unavailable Unavailable Rivero, F Belinda BUTADIENE COMPRESSOR OPERATOR-BC Unavailable Unavailable Rivero, F Belinda BUTADIENE COMPRESSOR OPERATOR-BC Unavailable Unavailable Rivero, F Belinda BUTADIENE COMPRESSOR OPERATOR-BC Unavailable Unavailable Rivero, F Belinda BUTADIENE COMPRESSOR OPERATOR-BC Unavailable Unavailable Rivero, F Belinda BUTADIENE COMPRESSOR OPERATOR-BC Unavailable Unavailable Rivero, F Belinda BUTADIENE COMPRESSOR OPERATOR-BC Unavailable Unavailable Rivero, F Belinda BUTADIENE COMPRESSOR OPERATOR-BC Unavailable Unavailable Rivero, F Belinda BUTADIENE COMPRESSOR OPERATOR-BC Unavailable Unavailable Rivero, F Belinda BUTADIENE COMPRESSOR OPERATOR-BC Unavailable Unavailable Rivero, F Belinda BUTADIENE COMPRESSOR OPERATOR-BC Unavailable Unavailable Rivero, F Belinda BUTADIENE COMPRESSOR OPERATOR-BC Unavailable Unavailable Amaya, A Raul MD Unavailable Unavailable Amaya, A Raul MD Unavailable Unavailable Amaya, A Raul MD Unavailable Unavailable Amaya, A Raul MD Unavailable Unavailable Amaya, A Raul MD Unavailable Unavailable Amaya, A Raul MD Unavailable Unavailable Amaya, A Raul MD Unavailable Unavailable Amaya, A Raul MD Unavailable Unavailable Amaya, A Raul MD Unavailable Unavailable Amaya, A Raul MD Unavailable Unavailable Amaya, A Raul MD Unavailable Unavailable Amaya, A Raul MD Unavailable Unavailable Amaya, A Raul MD Unavailable Unavailable Amaya, A Raul MD Unavailable Unavailable Amaya, A Raul MD Unavailable Unavailable Amaya, A Raul MD Unavailable Unavailable Amaya, A Raul MD Unavailable Unavailable Amaya, A Raul MD Unavailable Unavailable Amaya, A Raul MD Unavailable Unavailable Amaya, A Raul MD Unavailable Unavailable Amaya, A Raul MD Unavailable Unavailable Amaya, A Raul MD Unavailable Unavailable Amaya, A Raul MD Unavailable Unavailable Amaya, A Raul MD Unavailable Unavailable Amaya, A Raul MD Unavailable Unavailable Amaya, A Raul MD Unavailable Unavailable Amaya, A Raul MD Unavailable Unavailable Amaya, A Raul MD Unavailable Unavailable Amaya, A Raul MD Unavailable Unavailable Amaya, A Raul MD Unavailable Unavailable Amaya, A Raul MD Unavailable Unavailable Amaya, A Raul MD Unavailable Unavailable Amaya, A Raul MD Unavailable Unavailable Amaya, A Raul MD Unavailable Unavailable Amaya, A Raul MD Unavailable Unavailable Amaya, A Raul MD Unavailable Unavailable Amaay, A Raul MD Unavailable Unavailable Amaya, A Raul MD Unavailable Unavailable Amaya, A Raul MD Unavailable Unavailable Amaya, A Raul MD Unavailable Unavailable Amaya, A Raul MD Unavailable Unavailable Amaya, A Raul MD Unavailable Unavailable Amaya, A Raul MD Unavailable Unavailable Amaya, A Raul MD Unavailable Unavailable Amaya, A Raul MD Unavailable Unavailable Amaya, A Raul MD Unavailable Unavailable Amaya, A Raul MD Unavailable Unavailable Amaya, A Raul MD Unavailable Unavailable Amaya, A Raul MD Unavailable Unavailable Amaya, A Raul MD Unavailable Unavailable Amaya, A Raul MD Unavailable Unavailable Amaya, A Raul MD Unavailable Unavailable Amaya, A Raul MD Unavailable Unavailable Amaya, A Raul MD Unavailable Unavailable Amaya, A Raul MD Unavailable Unavailable Amaya, A Raul MD Unavailable Unavailable Amaya, A Raul MD Unavailable Unavailable Amaya, A Raul MD Unavailable Unavailable Amaya, A Raul MD Unavailable Unavailable Amaya, A Raul MD Unavailable Unavailable Amaya, A Raul MD Unavailable Unavailable Amaya, A Raul MD Unavailable Unavailable Amaya, A Raul MD Unavailable Unavailable Amaya, A Raul MD Unavailable Unavailable Amaya, A Raul MD Unavailable Unavailable Amaya, A Raul MD Unavailable Unavailable Amaya, A Raul MD Unavailable Unavailable Amaya, A Raul MD Unavailable Unavailable Amaya, A Raul MD Unavailable Unavailable Amaya, A Raul MD Unavailable Unavailable Amaya, A Raul MD Unavailable Unavailable Amaya, A Raul MD Unavailable Unavailable Amaya, A Raul MD Unavailable Unavailable Amaya, A Raul MD Unavailable Unavailable Amaya, A Raul MD Unavailable Unavailable Amaya, A Raul MD Unavailable Unavailable Amaya, A Raul MD Unavailable Unavailable Amaya, A Raul MD Unavailable Unavailable Amaya, A Raul MD Unavailable Unavailable Amaya, A Raul MD Unavailable Unavailable Amaya, A Raul GARCIA Unavailable Unavailable Malinda [place] MD Unavailable Unavailable MayitoMalinda rosado MD Unavailable Unavailable MayitoMalinda rosado MD Unavailable Unavailable MayitoMalinda rosado MD Unavailable Unavailable MayitoMalinda rosado MD Unavailable Unavailable MayitoMalinda rosado MD Unavailable Unavailable MayitoMalinda rosado MD Unavailable Unavailable MayitoMalinda rosado MD Unavailable Unavailable MayitoMalinda rosado MD Unavailable Unavailable MayitoMalinda rosado MD Unavailable Unavailable MayitoMalinda rosado MD Unavailable Unavailable Malinda [place] MD Unavailable Unavailable Malinda [place] MD Unavailable Unavailable Malinda [place] MD Unavailable Unavailable Malinda [place] MD Unavailable Unavailable Malinda [place] MD Unavailable Unavailable Malinda [place] MD Unavailable Unavailable MayitoMalinda rosado MD Unavailable Unavailable MayitoMalinda rosado MD Unavailable Unavailable MayitoMalinda rosado MD Unavailable Unavailable MayitoMalinda rosado MD Unavailable Unavailable MayitoMalinda rosado MD Unavailable Unavailable MayitoMalinda rosado MD Unavailable Unavailable MayitoMalinda MD Unavailable Unavailable HO, LOLIS ANTHONYIN RPA-C Unavailable Unavailable HO, LOLIS ALLEN RPA-C Unavailable Unavailable HO, LOLIS ALLEN RPA-C Unavailable Unavailable HO, LOLIS ALLEN RPA-C Unavailable Unavailable HO, LOLIS ALLEN RPA-C Unavailable Unavailable HO, LOLIS ALLEN RPA-C Unavailable Unavailable HO, LOLIS ALLEN RPA-C Unavailable Unavailable HO, LOLIS ALLEN RPA-C Unavailable Unavailable HO, LOLIS ALLEN RPA-C Unavailable Unavailable HO, LOLIS ALLEN RPA-C Unavailable Unavailable HO, LOLIS ALLEN RPA-C Unavailable Unavailable HO, LOLIS ALLEN RPA-C Unavailable Unavailable HO, LOLIS ALLEN RPA-C Unavailable Unavailable HO, LOLIS ALLEN RPA-C Unavailable Unavailable HO, LOLIS ALLEN RPA-C Unavailable Unavailable HO, LOLIS ALLEN RPA-C Unavailable Unavailable HO, LOLIS ALLEN RPA-C Unavailable Unavailable HO, LOLIS ALLEN RPA-C Unavailable Unavailable HO, LOLIS ALLEN RPA-C Unavailable Unavailable HO, LOLIS ALLEN RPA-C Unavailable Unavailable HO, LOLIS ALLEN RPA-C Unavailable Unavailable HO, LOLIS ALLEN RPA-C Unavailable Unavailable HO, LOLIS ALLEN RPA-C Unavailable Unavailable HO, LOLIS ALLEN RPA-C Unavailable Unavailable HO, LOLIS ALLEN RPA-C Unavailable Unavailable HO, LOLIS ALLEN RPA-C Unavailable Unavailable HO, LOLIS ALLEN RPA-C Unavailable Unavailable HO, LOLIS ALLEN RPA-C Unavailable Unavailable HO, LOLIS ALLEN RPA-C Unavailable Unavailable HO, LOLIS ALLEN RPA-C Unavailable Unavailable HO, LOLIS ALLEN RPA-C Unavailable Unavailable HO, LOLIS ALLEN RPA-C Unavailable Unavailable HO, LOLIS ALLEN RPA-C Unavailable Unavailable HO, LOLIS ALLEN RPA-C Unavailable Unavailable HO, LOLIS ALLEN RPA-C Unavailable Unavailable HO, LOLIS ALLEN RPA-C Unavailable Unavailable HO, LOLIS ALLEN RPA-C Unavailable Unavailable HO, LOLIS ALLEN RPA-C Unavailable Unavailable HO, LOLIS ALLEN RPA-C Unavailable Unavailable [facility], [facility] Unavailable Unavailable Re-disclosure Warning The records that you are about to access may contain information from federally-assisted alcohol or drug abuse programs. If such information is present, then the following federally mandated warning applies: This information has been disclosed to you from records protected by federal confidentiality rules (42 CFR part 2). The federal rules prohibit you from making any further disclosure of this information unless further disclosure is expressly permitted by the written consent of the person to whom it pertains or as otherwise permitted by 42 CFR part 2. A general authorization for the release of medical or other information is NOT sufficient for this purpose. The Federal rules restrict any use of the information to criminally investigate or prosecute any alcohol or drug abuse patient.The records that you are about to access may contain highly sensitive health information, the redisclosure of which is protected by Article 27-F of the [facility] Public Health law. If you continue you may have access to information: Regarding HIV / AIDS; Provided by facilities licensed or operated by the [facility] Office of Mental Health; or Provided by the [facility] Office for People With Developmental Disabilities. If such information is present, then the following [facility] mandated warning applies: This information has been disclosed to you from confidential records which are protected by state law. State law prohibits you from making any further disclosure of this information without the specific written consent of the person to whom it pertains, or as otherwise permitted by law. Any unauthorized further disclosure in violation of state law may result in a fine or chcf sentence or both. A general authorization for the release of medical or other information is NOT sufficient authorization for further disc losure. Allergies and Adverse Reactions Type Description Substance Reaction Status Data Source(s ) Phenergan Phenergan Promethazine Hydroch loride 50 MG/ML Injectable Solution [Phenergan] Confusion Active eCW1 ([facility]) Reglan Reglan Metoclopramide 5 MG Oral Tablet [Reglan] Confus ion Active eCW1 ([facility]) Family History Family Member Name Family Member Gender Family Member Status Date o f Status Description Data Source(s) Unknown Male Problem [facility] ([facility]) Encounters Encounter Providers Location Date Indications Data Source(s ) Outpatient Attender: BREEZY SUMMERS MD [facility] Med [facility] [place] 11/23/2019 03:00:00 PM EDT [facility] Outpatient Attender: Malinda Bryant/Carrillo/Timur/Guillermo dobbs 11/18/2019 03:00:00 PM EDT [facility] ([facility] Outpatient 10/28/2019 05:19:00 AM EDT [facility] Outpatient Attender: MICKKAIN YIN [facility] 05/2019 02:50:02 PM EDT [facility] Outpatient Attender: DIAN HO DENZEL YIN [facility] 08/18 11:28:00 AM EDT [facility] Outpatient Attender: ALLEN NIÑO [facility] 09/07/2019 11:28:00 AM EDT [facility] [address] [place] [id number] 08/31/2019 12:00:00 AM EDT eCW1 ([facility]) Outpatient Attender: ALLEN NIÑO [facility] 08/27/2019 08:34:01 AM EDT [facility] Outpatient Attender: DIAN YIN [facility] 08/17 08:34:00 AM EDT [facility] Outpatient Attender: ALLEN NIÑO [facility] 08/25/2019 09:12:01 AM EDT [facility] Outpatient Attender: MIKHAIL DOUGHERTY 07/22/2019 12:46:01 PM [facility] Outpatient Attender: Belinda JEAN 07/22/2019 12: 45:03 PM [facility] Outpatient Attender: MIKHAIL DOUGHERTY 07/21/2019 08:13:00 AM [facility] Outpatient 07/13/2019 07:57:00 PM [facility] Outpatient 07/07/2019 08:07:00 AM [facility] Outpatient Attender: Belinda JEAN FP 06/30/2019 10: 36:02 AM [facility] Outpatient Attender: Raul Amaya MD 06/22/2019 12:00:00 AM [facility] Outpatient Attender: Malinda Bryant/Carrillo/Timur/Guillermo ndl 06/10/2019 07:30:00 AM EST [facility] ([facility] Outpatient Attender: MIKHAIL ELIZONDO FP 05/14/2019 03:50:01 PM [facility] [address] [place] [address] 04/30/2019 12:00:00 AM EST eCW1 ([facility]) Outpatient Attender: Raul Amaya MD 04/20/2019 12:00:00 AM EST [facility] Medications Medication Brand Name Start Date Product Form Dose Route Admi nistrative Instructions Pharmacy Instructions Status Indications Reaction Description Data Source(s) Hydroxychloroquine Sulfate 200 MG Oral Tablet HYDROXYCHLOROQ UINE SULFATE 03/18/2020 12:00:00 AM EDT tablet 60 TAKE ONE TABLE T BY MOUTH TWICE A DAY TAKE ONE TABLET BY MOUTH TWICE A DAY SOLD: 03/21/2020 [facility] Qvar Redihaler Qvar Redihaler 03/17/2020 12:00:00 AM EDT ORAL active [facility] ([facility] ) Hydroxychloroquine Sulfate 200 MG Oral Tablet [Plaquenil] Pl aquenil 03/17/2020 12:00:00 AM EDT ORAL active M EDENT ([facility], ) 2.5 mg 02/22/2020 12:00:00 AM EDT tablet 12 TAKE 6 TABLETS BY MOUTH ONCE WEEKLY WITH FOLIC ACID TAKE 6 TABLETS BY MOUTH ONCE WEEKLY WITH FOLIC ACID SO LD: 02/22/2020 [facility] 5 mg 01/05/2020 12:00:00 AM EDT tablet 60 USE DIRECTED ACCORDING TO CALENDAR. MAX OF 2 PER DAY USE DIRECTED ACCORDING TO CALENDAR. M AX OF 2 PER DAY SOLD: 01/09/2020 [facility] 1 mg 11/27/2019 12:00:00 AM EDT tablet 30 TAKE ONE TABLET BY MOUTH EVERY DAY TAKE ONE TABLET BY MOUTH EVERY DAY SOLD: 01/09/2020 [facility] 2.5 mg 11/27/2019 12:00:00 AM EDT tablet 24 TAKE 6 TABLETS BY MOUTH WEEKLY WITH FOLIC ACID TAKE 6 TABLETS BY MOUTH WEEKLY WITH FOLIC ACID SOLD: 020 [facility] 2.5 mg 11/27/2019 12:00:00 AM EDT tablet 24 TAKE 6 TABLETS BY MOUTH WEEKLY WITH FOLIC ACID TAKE 6 TABLETS BY MOUTH WEEKLY WITH FOLIC ACID SOLD: 020 [facility] 2.5 mg 11/27/2019 12:00:00 AM EDT tablet 24 TAKE 6 TABLETS BY MOUTH WEEKLY WITH FOLIC ACID TAKE 6 TABLETS BY MOUTH WEEKLY WITH FOLIC ACID SOLD: 020 [facility] 1 mg 11/27/2019 12:00:00 AM EDT tablet 30 TAKE ONE TABLET BY MOUTH EVERY DAY TAKE ONE TABLET BY MOUTH EVERY DAY SOLD: 02/22/2020 [facility] 10 mg 11/27/2019 12:00:00 AM EDT tablet 60 TAKE 1 AND 1/2 TABLETS BY MOUTH DAILY FOR 2 WEEKS THEN TAPER TO 1 TABLET DAILY FOR 3 WEEKS TAKE 1 AND 1/2 TABLETS BY MOUTH DAILY FOR 2 WEEKS THEN TAPER TO 1 TABLET DAILY FOR 3 WEEKS SOLD: 11/28/2019 [facility] 1 mg 11/27/2019 12:00:00 AM EDT tablet 30 TAKE ONE TABLET BY MOUTH EVERY DAY TAKE ONE TABLET BY MOUTH EVERY DAY SOLD: 11/28/2019 [facility] Methotrexate 2.5 MG Oral Tablet Methotrexate 11/18/2019 12:00:00 AM EDT completed [facility] ([facility] ) 1 mg 11/15/2019 12:00:00 AM EDT tablet 14 TAKE ONE TABLET BY MOUTH EVERY DAY TAKE ONE TABLET BY MOUTH EVERY DAY SOLD: 11/16/2019 [facility] 5 mg 11/15/2019 12:00:00 AM EDT tablet 7 TAKE ONE TABLET BY MOUTH EVERY OTHER DAY TAKE ONE TABLET BY MOUTH EVERY OTHER DAY SOLD: 11/16/2019 [facility] 2.5 mg 11/15/2019 12:00:00 AM EDT tablet 8 TAKE 4 TABLETS BY MOUTH ONCE WEEKLY TAKE 4 TABLETS BY MOUTH ONCE WEEKLY SOLD: 11/16/2019 [facility] 10 mg 10/18/2019 12:00:00 AM EDT tablet 12 TAKE ONE TABLET BY MOUTH EVERY 6 HOURS NEEDED FOR PAIN TAKE ONE TABLET BY MOUTH EVERY 6 HOURS A S NEEDED FOR PAIN SOLD: 10/18/2019 [facility] 1 gram 10/18/2019 12:00:00 AM EDT tablet 40 TAKE ONE TABLET BY MOUTH BEFORE MEALS AND AT BEDTIME TAKE ONE TABLET BY MOUTH BEFORE MEALS AND AT BEDTIME S OLD: 10/18/2019 [facility] 1 mg 06/29/2019 12:00:00 AM EST tablet 30 TAKE ONE TABLET BY MOUTH EVERY DAY TAKE ONE TABLET BY MOUTH EVERY DAY SOLD: 06/29/2019 [facility] 1 mg 06/29/2019 12:00:00 AM EST tablet 30 TAKE ONE TABLET BY MOUTH EVERY DAY TAKE ONE TABLET BY MOUTH EVERY DAY SOLD: 08/03/2019 [facility] 1 mg 06/29/2019 12:00:00 AM EST tablet 30 TAKE ONE TABLET BY MOUTH EVERY DAY TAKE ONE TABLET BY MOUTH EVERY DAY SOLD: 10/10/2019 [facility] 1 mg 06/29/2019 12:00:00 AM EST tablet 30 TAKE ONE TABLET BY MOUTH EVERY DAY TAKE ONE TABLET BY MOUTH EVERY DAY SOLD: 09/04/2019 [facility] 500 mg 06/27/2019 12:00:00 AM EST tablet 19 TAKE ONE TABLET BY MOUTH TWO TIMES A DAY TAKE ONE TABLET BY MOUTH TWO TIMES A DAY SOLD: 06/27/2019 [facility] 500 mg 06/27/2019 12:00:00 AM EST tablet 29 TAKE ONE TABLET BY MOUTH EVERY 8 HOURS TAKE ONE TABLET BY MOUTH EVERY 8 HOURS SOLD: 06/27/2019 [facility] 50 mg 06/27/2019 12:00:00 AM EST tablet 6 TAKE ONE TABLET BY MOUTH EVERY 6 HOURS NEEDED FOR PAIN MAXIMUM DAILY DOSE = 4 TABLETS TAKE ONE TABLET BY MOUTH EVERY 6 HOURS NEEDED FOR PAIN MAXIMUM DAILY DOSE = 4 TABLETS SOLD: 06/27/2019 [facility] 2.5 mg 06/10/2019 12:00:00 AM EST tablet 16 TAKE FOUR TABLETS BY MOUTH ONCE WEEKLY TAKE FOUR TABLETS BY MOUTH ONCE WEEKLY SOLD: 06/15/2019 [facility] 2.5 mg 06/10/2019 12:00:00 AM EST tablet 16 TAKE FOUR TABLETS BY MOUTH ONCE WEEKLY TAKE FOUR TABLETS BY MOUTH ONCE WEEKLY SOLD: 08/06/2019 [facility] 2.5 mg 06/10/2019 12:00:00 AM EST tablet 16 TAKE FOUR TABLETS BY MOUTH ONCE WEEKLY TAKE FOUR TABLETS BY MOUTH ONCE WEEKLY SOLD: 07/13/2019 [facility] 2.5 mg 05/13/2019 12:00:00 AM EST tablet 16 TAKE 4 TABLETS BY MOUTH EVERY WEEK TAKE 4 TABLETS BY MOUTH EVERY WEEK SOLD: 05/17/2019 [facility] 2.5 mg 05/13/2019 12:00:00 AM EST tablet 16 TAKE 4 TABLETS BY MOUTH EVERY WEEK TAKE 4 TABLETS BY MOUTH EVERY WEEK SOLD: 10/10/2019 [facility] 2.5 mg 05/13/2019 12:00:00 AM EST tablet 16 TAKE 4 TABLETS BY MOUTH EVERY WEEK TAKE 4 TABLETS BY MOUTH EVERY WEEK SOLD: 09/04/2019 [facility] 20 mg 05/10/2019 12:00:00 AM EST tablet 13 TAKE 3 TABLETS BY MOUTH DAILY FOR 2 DAYS, THEN TAKE 2 TABLETS DAILY FOR 2 DAYS, THEN TAKE 1 TABLET DAILY FOR 2 DAYS, THEN TAKE ONE-HALF TABLET DAILY FOR 2 DAYS, THEN CONTINUE REGULAR MG DAILY DOSE TAKE 3 TABLETS BY MOUTH DAILY FOR 2 DAYS , THEN TAKE 2 TABLETS DAILY FOR 2 DAYS, THEN TAKE 1 TABLET DAILY FOR 2 DAYS, THEN TAKE ONE-HALF TABLET DAILY FOR 2 DAYS, THEN CONTINUE REGULAR MG DAILY DOSE SOLD: 05/17/2019 [facility] 5 mg 04/29/2019 12:00:00 AM EST tablet 1 TAKE ONE TABLET BY MOUTH 30-60 MINTUES PRIOR TO MRI, MAXIMUM DAILY DOSE = 1 TABLET TAKE ONE TABLET BY MOUTH 30- 60 MINTUES PRIOR TO MRI, MAXIMUM DAILY DOSE = 1 TABLET SOLD: 05/03/2019 [facility] 5 mg 04/06/2019 12:00:00 AM EST tablet 30 TAKE ONE TABLET BY MOUTH EVERY DAY TAKE ONE TABLET BY MOUTH EVERY DAY SOLD: 05/28/2019 [facility] 12 HR Orphenadrine Citrate 100 MG Extend ed Release Oral Tablet Orphenadrine Citrate ER 100 MG Oral Tablet Extended Release 12 Hour (NORFLEX) Orphenadrine Citrate ER 100 MG Oral Tablet Extended Release 12 Hour (NORFLEX) 03/23/2019 12:00:00 AM EST 100 mg Oral active Cervical spondyl osis Take 1 tablet by mouth Two times daily as needed for Muscle spasms [facility] Cervical spondylosis Diclofenac Sodium 50 MG Delayed Release Oral Tablet Diclofenac Sodium 50 MG Oral Tablet Delayed Release (VOLTAREN) Diclofenac Sodium 50 MG Oral Tablet Trupti yed Release (VOLTAREN) 03/23/2019 12:00:00 AM EST 50 mg Oral active Cervical spondylosis Take 1 tablet by mouth Two Times Daily [facility] Cervical spondylosis 1 mg 02/24/2019 12:00:00 AM EDT tablet 30 TAKE ONE TABLET BY MOUTH EVERY DAY TAKE ONE TABLET BY MOUTH EVERY DAY SOLD: 05/28/2019 [facility] 10 mg 02/24/2019 12:00:00 AM EDT tablet 60 TAKE 2 TABLETS BY MOUTH ONCE DAILY FOR 2 WEEKS THEN TAPER TO 1 1/2 TABLETS ONCE DAILY DIRECTED TAKE 2 TABLETS BY MOUTH ONCE DAILY FOR 2 WEEKS THEN TAPER TO 1 1/2 TABLETS ONCE DAILY DIRECTED SOLD: 06/27/2019 [facility] 1 mg 02/24/2019 12:00:00 AM EDT tablet 30 TAKE ONE TABLET BY MOUTH EVERY DAY TAKE ONE TABLET BY MOUTH EVERY DAY SOLD: 04/27/2019 [facility] Insurance Providers Payer name Policy type / Coverage type Policy ID Covered constitution party ID Covered constitution party's relationship to an Policy An Plan Information [employer] BC-BS PPO [id number] [id number] [employer] BC[employer] B [id number] P [id number] [id number] [employer] BC[employer] P [id number] S [id number] [id number] [employer] BC[employer] P [id number] S [id number] [id number] BC[place] OF [place] [id number] [place]2 [id number] BLUE CARD C [id number] Spouse [id number] [employer] BC[employer] B [id number] P [id number] [id number] [employer] Health Maintenance Organization (HMO) [id number] Family Dependent [id number] [employer] Health Maintenance Organization (HMO) [id number] Family Dependent [id number] BLUE CROSS BLUE SHIELD -O/P [id number] [employer] Health Maintenance Organization (HMO) [id number] Family Dependent [id number] [employer] BCYO P [id number] S [id number] [employer] Health Maintenance Organization (HMO) [id number] Self [id number] [employer] BCYO P [id number] S GLX [id number] BCBS OF [place] [phone] [id number] [place]2 [id number] [employer] BCYO P [id number] S GLX [id number] BCBS OF [place] [id number] [place]2 [id number] SELF PAY ONLY UNAVAILABLE UNAV AILABLE UNHC COMMUNITY PLAN [facility] [id number] SP [id number] SELF PAY UNAVAILABLE SP UNAVAILA BLE MEDICAID [id number] SP [id number] MEDICAID [id number] SP [id number] [facility] FAMILY HLTH PLUS [id number] SP [id number] VALUE OPTIONS (FHP) [id number] SP [id number] [facility] [id number] 2 [id number] [facility] [id number] 2 [id number] [facility] Organization (HMO) Self MEDICAID -O/P [id number] MEDICAID -O/P [id number] 18 [id number] [facility] O [id number] S [id number] MEDICAID -O/P EMERGENCY ROOM [id number] Problems, Conditions, and Diagnoses Code Display Name Description Problem Type Effective Dates Data Source(s) [id number] Otalgia of right ear Otalgia of right ear 08/25/2019 09:10:18 AM EDT [facility] [id number] Acute pharyngitis, unspecified Acute pharyngitis, unsp ecified 08/25/2019 09:10:18 AM EDT [facility] D86.9 [id number] Sarcoidosis Problem 04/30/2019 12:00:00 AM E eCW1 ([facility]) Surgeries/Procedures Procedure Description Date Indications Data Source(s) Spirometry 06/10/2019 12:00:00 AM SMOOTH ARGUELLO ([facility], ) Results ID Date Data Source [id number] 03/15/2020 02:26:00 PM EDT BREANN ([facility], ) Name Value Range Interpretation Code Description Data Nancy rce(s) Supporting Document(s) Glucose, Fasting 95 mg/dL 70-100 Normal (applies to non-numeric results) [facility] ([facility], ) Blood Urea Nitrogen 7 mg/dL 7-18 Normal (applies to non-nume matilde results) [facility] ([facility], ) Sodium Level 140 meq/L 136-145 Normal (applies to non-numeric res ults) [facility] ([facility], ) Glomerular Filtration Rate Laboratory test result Normal (applies to non- numeric results) [facility] ([facility], ) <content>Units are mL/min/1.73 m2</content>
<content></content>
<content>Chronic Kidney Disease Staging per NKF:</content>
<content></content>
<content>Stage I & II GFR >=60 Normal to Mildly Decreased</content>
<content>Stage III GFR 30- 59 Moderately Decreased</content>
<content>Stage IV GFR 15-29 Severely Decreased</content>
<content>Stage V GFR <15 Very Little GFR Left</content>
<content>ESRD GFR <15 on BAKESHOP CLEANER</content>
<content></content> Creatinine For GFR 0.87 mg/dL 0.55-1.30 Normal (applies to non -numeric results) [facility] ([facility], ) Potassium Serum 4.1 meq/L 3.5-5.1 Normal (applies to non-numeric results) [facility] ([facility], ) Carbon Dioxide Level 25 meq/L 21-32 Normal (applies to non-num angelic results) [facility] ([facility], ) Chloride Level 108 meq/L 98-107 Above high normal [facility] ([facility], ) Calcium Level 9.9 mg/dL 8.5-10.1 Normal (applies to non-numeric re sults) [facility] ([facility], ) Anion Gap 7 meq/L 8-16 Below low [facility] Ast/Sgot 21 U/L 7-37 Normal (applies to non-numeric resul ts) [facility] ([facility], ) Alt/SGPT 68 U/L 12-78 Normal (applies to non-numeric resul ts) [facility] ([facility], ) Alkaline Phosphatase 72 U/L 45-117 Normal (applies to non-num angelic results) [facility] ([facility], ) Total Protein 6.6 GM/DL 6.4-8.2 Normal (applies to non-numeric re sults) [facility], ) Bilirubin,Total 1.2 mg/dL 0.2-1.0 Above high normal [facility] ([facility]) Albumin 4.0 GM/DL 3.2-5.2 Normal (applies to non-numeric resul ts) [facility] ([facility]) Albumin/Globulin Ratio 1.5 1.2-2.2 Normal (applies to non-n umeric results) [facility] ([facility]) ID Date Data Source [id number] 03/15/2020 02:26:00 PM EDT [facility] ([facility]) Name Value Range Interpretation Code Description Data Nancy rce(s) Supporting Document(s) Red Blood Count 4.39 10 4.00-5.40 Normal (applies to non-numeric results) [facility] ([facility]) White Blood Count 6.3 10 4.0-10.0 Normal (applies to non-numeri c results) [facility] ([facility]) Mean Corpuscular Volume 94.1 fl 80.0-96.0 Normal ( applies to non-numeric results) [facility] ([facility]) Hemoglobin 13.3 g/dL 12.0-15.5 Normal (applies to non-numeric resul ts) [facility] ([facility]) Hematocrit 41.3 % 36.0-47.0 Normal (applies to non-numeric resul ts) [facility] ([facility]) Mean Corpuscular Hemoglobin 30.3 pg 27.0-33.0 Norm al (applies to non-numeric results) [facility] ([facility]) Mean Corpuscular HGB Conc 32.2 g/dL 32.0-36.5 Normal (applies to non-numeric results) [facility] ([facility]) Platelet Count, Automated 266 10 150-450 Normal (applies to non-numeric results) [facility] ([facility]) Red Cell Distribution Width 14.1 % 11.5-14.5 Norm al (applies to non-numeric results) [facility]) Neutrophils % 73.2 % 36.0-66.0 Above high normal [facility] NT ([facility]) Lymph % 17.4 % 24.0-44.0 Below low normal [facility] ( [facility]) [place] % 7.4 % 0.0-5.0 Above high normal [facility] ([facility]) Eos % 0.5 % 0.0-3.0 Normal (applies to non-numeric resul ts) [facility] ([facility]) Baso % 0.9 % 0.0-1.0 Normal (applies to non-numeric resul ts) [facility] ([facility]) Nucleated Red Blood Cell % 0.0 % 0-0 Normal (applies to n on-numeric results) [facility] ([facility]) Immature Granulocyte % 0.6 % 0-3.0 Normal (applies to non-n umeric results) [facility] ([facility]) [place] # 0.5 10 0.0-0.8 Normal (applies to non-numeric resul ts) [facility] ([facility]) Neutrophils # 4.6 10 1.5-8.5 Normal (applies to non-numeric re sults) [facility] ([facility]) Lymph # 1.1 10 1.5-5.0 Below low normal [facility] ( [facility]) Eos # 0.0 10 0.0-0.5 Normal (applies to non-numeric resul ts) [facility] ([facility]) Baso # 0.1 10 0.0-0.2 Normal (applies to non-numeric resul ts) [facility] ([facility]) ID Date Data Source [id number] 03/08/2020 11:58:00 AM EDT [facility] ([facility]) Name Value Range Interpretation Code Description Data Nancy rce(s) Supporting Document(s) Glucose, Fasting 92 mg/dL 70-100 Normal (applies to non-numeric results) [facility] ([facility]) Blood Urea Nitrogen 10 mg/dL 7-18 Normal (applies to non-nume matilde results) [facility] ([facility]) Creatinine For GFR 0.88 mg/dL 0.55-1.30 Normal (applies to non -numeric results) [facility] ([facility]) Sodium Level 140 meq/L 136-145 Normal (applies to non-numeric res ults) [facility] ([facility], ) Glomerular Filtration Rate Laboratory test result Normal (applies to non- numeric results) [facility] ([facility]) <content>Units are mL/min/1.73 m2</content>
<content></content>
<content>Chronic Kidney Disease Staging per NKF:</content>
<content></content>
<content>Stage I & II GFR >=60 Normal to Mildly Decreased</content>
<content>Stage III GFR 30- 59 Moderately Decreased</content>
<content>Stage IV GFR 15-29 Severely Decreased</content>
<content>Stage V GFR <15 Very Little GFR Left</content>
<content>ESRD GFR <15 on BAKESHOP CLEANER</content>
<content></content> Potassium Serum 4.0 meq/L 3.5-5.1 Normal (applies to non-numeric results) [facility] ([facility], ) Carbon Dioxide Level 27 meq/L 21-32 Normal (applies to non-num angelic results) [facility] ([facility]) Anion Gap 4 meq/L 8-16 Below low normal [facility] ( [facility]) Chloride Level 109 meq/L 98-107 Above high normal [facility] ([facility]) Calcium Level 10.4 mg/dL 8.5-10.1 Above high normal [facility] ([facility]) Ast/Sgot 100 U/L 7-37 Above high normal [facility] Alt/SGPT 222 U/L 12-78 Above high normal [facility] ([facility]) Alkaline Phosphatase 70 U/L 45-117 Normal (applies to non-num angelic results) [facility]) Bilirubin,Total 0.9 mg/dL 0.2-1.0 Normal (applies to non-numeric results) [facility] ([facility]) Albumin 4.0 GM/DL 3.2-5.2 Normal (applies to non-numeric resul ts) [facility] Total Protein 6.9 GM/DL 6.4-8.2 Normal (applies to non-numeric re sults) [facility]) Albumin/Globulin Ratio 1.4 1.2-2.2 Normal (applies to non-n umeric results) [facility]) ID Date Data Source [id number] 03/08/2020 11:58:00 AM EDT [facility] ([facility]) Name Value Range Interpretation Code Description Data Nancy rce(s) Supporting Document(s) White Blood Count 6.8 10 4.0-10.0 Normal (applies to non-numeri c results) [facility]) Red Blood Count 4.40 10 4.00-5.40 Normal (applies to non-numeric results) [facility]) Hemoglobin 13.7 g/dL 12.0-15.5 Normal (applies to non-numeric resul ts) [facility]) Hematocrit 42.0 % 36.0-47.0 Normal (applies to non-numeric resul ts) [facility]) Mean Corpuscular HGB Conc 32.6 g/dL 32.0-36.5 Normal (applies to non-numeric results) [facility]) Mean Corpuscular Volume 95.5 fl 80.0-96.0 Normal ( applies to non-numeric results) [facility]) Red Cell Distribution Width 14.3 % 11.5-14.5 Norm al (applies to non-numeric results) [facility]) Mean Corpuscular Hemoglobin 31.1 pg 27.0-33.0 Norm al (applies to non-numeric results) [facility]) Neutrophils % 66.0 % 36.0-66.0 Normal (applies to non-numeric re sults) [facility]) Platelet Count, Automated 271 10 150-450 Normal (applies to non-numeric results) [facility]) Lymph % 18.3 % 24.0-44.0 Below low normal [facility] ( [facility]) [place] % 12.4 % 0.0-5.0 Above high normal [facility] ([facility]) Baso % 0.6 % 0.0-1.0 Normal (applies to non-numeric resul ts) [facility] ([facility]) Immature Granulocyte % 0.6 % 0-3.0 Normal (applies to non-n umeric results) [facility] ([facility]) Eos % 2.1 % 0.0-3.0 Normal (applies to non-numeric resul ts) [facility] ([facility]) Neutrophils # 4.5 10 1.5-8.5 Normal (applies to non-numeric re sults) [facility] ([facility]) Nucleated Red Blood Cell % 0.0 % 0-0 Normal (applies to n on-numeric results) [facility] ([facility]) Lymph # 1.2 10 1.5-5.0 Below low normal [facility] ( [facility]) Eos # 0.1 10 0.0-0.5 Normal (applies to non-numeric resul ts) [facility] ([facility]) [place] # 0.8 10 0.0-0.8 Normal (applies to non-numeric resul ts) [facility] ([facility]) Baso # 0.0 10 0.0-0.2 Normal (applies to non-numeric resul ts) [facility] ([facility]) ID Date Data Source [id number] 11/29/2019 11:00:00 AM EDT [facility] ([facility]) Name Value Range Interpretation Code Description Data Nancy rce(s) Supporting Document(s) Normetanephrine Total Urine 134 ug/L Normal (appli es to non-numeric results) [facility] ([facility]) will discuss at follow-up Metanephrine Total Urine 60 ug/L Normal (applies to non -numeric results) [facility] ([facility]) will discuss at follow-up Metanephrine Urine 102 ug/24hr 36-209 Normal (applies to non-nume matilde results) [facility] ([facility]) will discuss at follow-up Normetanephrine Urine 228 ug/24hr 131-612 Normal (ap plies to non-numeric results) [facility] ([facility]) will discuss at follow-up ID Date Data Source [id number] 11/17/2019 04:06:00 PM EDT [facility] ([facility]) Name Value Range Interpretation Code Description Data Nancy rce(s) Supporting Document(s) Calcitriol [Mass/volume] in Serum or Plasma 61.1 pg/mL 19.9 -79.3 Normal (applies to non-numeric results) [facility] ([facility]) Performed at: [address] [id number] [employer] Specialist: Jeison Hart MD, Phone: [phone] ID Date Data Source [id number] 11/17/2019 04:06:00 PM EDT [facility] ([facility]) Name Value Range Interpretation Code Description Data Nancy rce(s) Supporting Document(s) Normetanephrine Plasma 54.2 pg/mL 0.0-125.8 Normal (a pplies to non-numeric results) [facility] ([facility]) Please note reference interval change* * Metanephrine Plasma 44.2 pg/mL 0.0-88.0 Normal (applies to no n-numeric results) [facility] ([facility]) Please note reference interval change* * ID Date Data Source [id number] 11/17/2019 04:06:00 PM EDT [facility] ([facility]) Name Value Range Interpretation Code Description Data Nancy rce(s) Supporting Document(s) Calcidiol [Mass/volume] in Serum or Plasma 22.1 ng/mL 30.0- 100.0 Below low normal [facility] ([facility]) will discuss at follow-up ID Date Data Source [id number] 11/17/2019 04:06:00 PM EDT [facility] ([facility]) Name Value Range Interpretation Code Description Data Nancy rce(s) Supporting Document(s) Glucose, Fasting 83 mg/dL 70-100 Normal (applies to non-numeric results) [facility] ([facility], ) will discuss at follow-up Blood Urea Nitrogen 7 mg/dL 7-18 Normal (applies to non-nume matilde results) [facility] ([facility]) will discuss at follow-up Creatinine For GFR 1.10 mg/dL 0.55-1.30 Normal (applies to non -numeric results) [facility] ([facility]) will discuss at follow-up Glomerular Filtration Rate 56.7 Below low normal [facility] ([facility], ) <content>Units are mL/min/1.73 m2</content>
<content></content>
<content>Chronic Kidney Disease Staging per NKF:</content>
<content></content>
<content>Stage I & II GFR >=60 Normal to Mildly Decreased</content>
<content>Stage III GFR 30- 59 Moderately Decreased</content>
<content>Stage IV GFR 15-29 Severely Decreased</content>
<content>Stage V GFR <15 Very Little GFR Left</content>
<content>ESRD GFR <15 on BAKESHOP CLEANER</content>
<content></content> Sodium Level 142 meq/L 136-145 Normal (applies to non-numeric res ults) [facility] ([facility], ) will discuss at follow-up Potassium Serum 4.3 meq/L 3.5-5.1 Normal (applies to non-numeric results) [facility] ([facility], ) This specimen has an elevated potassium level but there is NO visible hemolysis noted. Chloride Level 111 meq/L 98-107 Above high normal [facility] ([facility], ) will discuss at follow-up Anion Gap 5 meq/L 8-16 Below low normal [facility] ( [facility]) will discuss at follow-up Carbon Dioxide Level 26 meq/L 21-32 Normal (applies to non-num angelic results) [facility] ([facility]) will discuss at follow-up Calcium Level 9.4 mg/dL 8.5-10.1 Normal (applies to non-numeric re sults) [facility] ([facility]) will discuss at follow-up Ast/Sgot 22 U/L 7-37 Normal (applies to non-numeric resul ts) [facility] ([facility]) will discuss at follow-up Alt/SGPT 50 U/L 12-78 Normal (applies to non-numeric resul ts) [facility] ([facility]) will discuss at follow-up Alkaline Phosphatase 66 U/L 45-117 Normal (applies to non-num angelic results) [facility] ([facility]) will discuss at follow-up Bilirubin,Total 0.8 mg/dL 0.2-1.0 Normal (applies to non-numeric results) [facility] ([facility]) will discuss at follow-up Total Protein 6.9 GM/DL 6.4-8.2 Normal (applies to non-numeric re sults) [facility] ([facility]) will discuss at follow-up Albumin/Globulin Ratio 1.2 1.2-2.2 Normal (applies to non-n umeric results) [facility] ([facility]) will discuss at follow-up Albumin 3.8 GM/DL 3.2-5.2 Normal (applies to non-numeric resul ts) [facility] ([facility]) will discuss at follow-up ID Date Data Source [id number] 11/17/2019 04:06:00 PM EDT [facility] ([facility]) Name Value Range Interpretation Code Description Data Nancy rce(s) Supporting Document(s) White Blood Count 8.4 10 4.0-10.0 Normal (applies to non-numeri c results) [facility] ([facility]) will discuss at follow-up Red Blood Count 4.29 10 4.00-5.40 Normal (applies to non-numeric results) [facility] ([facility]) will discuss at follow-up Hematocrit 41.1 % 36.0-47.0 Normal (applies to non-numeric resul ts) [facility] ([facility]) will discuss at follow-up Hemoglobin 13.3 g/dL 12.0-15.5 Normal (applies to non-numeric resul ts) [facility] ([facility]) will discuss at follow-up Mean Corpuscular Hemoglobin 31.0 pg 27.0-33.0 Norm al (applies to non-numeric results) [facility] ([facility]) will discuss at follow-up Mean Corpuscular Volume 95.8 fl 80.0-96.0 Normal ( applies to non-numeric results) [facility] ([facility]) will discuss at follow-up Red Cell Distribution Width 13.9 % 11.5-14.5 Norm al (applies to non-numeric results) [facility] ([facility]) will discuss at follow-up Mean Corpuscular HGB Conc 32.4 g/dL 32.0-36.5 Normal (applies to non-numeric results) [facility] ([facility]) will discuss at follow-up Platelet Count, Automated 298 10 150-450 Normal (applies to non-numeric results) [facility] ([facility]) will discuss at follow-up Neutrophils % 79.1 % 36.0-66.0 Above high normal [facility] ([facility]) will discuss at follow-up Lymph % 11.6 % 24.0-44.0 Below low normal [facility] ( [facility]) will discuss at follow-up [place] % 6.7 % 0.0-5.0 Above high normal [facility] ([facility]) will discuss at follow-up Eos % 0.7 % 0.0-3.0 Normal (applies to non-numeric resul ts) [facility] ([facility], ) will discuss at follow-up Immature Granulocyte % 1.3 % 0-3.0 Normal (applies to non-n umeric results) [facility] ([facility]) will discuss at follow-up Baso % 0.6 % 0.0-1.0 Normal (applies to non-numeric resul ts) [facility] ([facility]) will discuss at follow-up Neutrophils # 6.6 10 1.5-8.5 Normal (applies to non-numeric re sults) [facility] ([facility]) will discuss at follow-up Nucleated Red Blood Cell % 0.0 % 0-0 Normal (applies to n on-numeric results) [facility] ([facility], ) will discuss at follow-up [place] # 0.6 10 0.0-0.8 Normal (applies to non-numeric resul ts) [facility] ([facility], ) will discuss at follow-up Lymph # 1.0 10 1.5-5.0 Below low normal [facility] ( [facility], ) will discuss at follow-up Baso # 0.1 10 0.0-0.2 Normal (applies to non-numeric resul ts) [facility] ([facility], ) will discuss at follow-up Eos # 0.1 10 0.0-0.5 Normal (applies to non-numeric resul ts) [facility] ([facility], ) will discuss at follow-up ID Date Data Source [id number] 08/25/2019 08:50:00 AM EDT [facility] Name Value Range Interpretation Code Description Data Nancy rce(s) Supporting Document(s) THROAT CULTR NORMAL NADINE PRESENT N [facility] ID Date Data Source [id number] 08/25/2019 08:33:54 AM EDT [facility] Measurements & CalculationsHeight: 67 inches (5 ft. 7 in.) 170.18 cm Weight: 184 pounds 5 oz. 83.78 kg Body Mass Index (BMI): 28.97BMI Interpretation: OverweightBody Surface Area (BSA): 1.95Vital SignsTemperature: 97.6F tympanic Pulse Rate: 84 beats/minuteRespiratory Rate: 18 respirations/minuteBlood Pressure: 11 6/85 left arm sitting automaticO2 Saturation: 96% room airVital Signs performed by: Enid Light LPN, August 25, 2019 8:42 AMLabs In-House Lab TestsDate/Time Collected: August 25, 2019 9:14 AMDate/Time Received: August 25, 2019 9:14 AMTest Result Reference Range Normal ValueRapid Strep: negative Alan Light LPN, August 25, 2019 9:14 AMInitial Intake Information from: patientRoom #: 1Smoking, Tobacco, Vaping or Smoke Exposure StatusSmoke Status: never smokerTobacco Use: NoDo you vape? NoPassive Smoke Exposure: YesPassive Smoke Exposure comments: outside-vapingMenstrual HistoryAny possibility of ? NoHealthcare HistorySince your last office visit...Have you been admitted to the hospital? NoHave you been to an emergency room (ER) or urgent care clinic? NoHave you seen another healthcare provider? Yes - neuro, cardio, pulmHave you seen a dentist? Yes - mccueRate Your HealthIn general, would you say your health is? GoodPain AssessmentAre you currently having any pain which... You would like your provider to address? No Affects your activity level? NoDepression Screening - PHQ-2Over the last two weeks, have you... Had little interest or pleasure in doing things? Not at all Been feeling down, depressed, or hopeless? Not at all PHQ-2 Score: 0Anxiety Screening - ANNITA-2Over the last two weeks, have you been... Feeling nervous, anxious, or on edge? Not at all Unable to stop or control worrying? Not at all ANNITA-2 Score: 0Infectious Disease / Travel ScreeningRecent travel for you or any close contacts? NoHave you had any close contact with anyone diagnosed with or under investigation for COVID-19 (coronavirus)? NoHave you had any of the following symptoms recently? Fever? NoRespiratory symptoms: cough, cold, congestion, shortness of breath, difficulty breathing? NoScreening, Brief Intervention, & Referral to Treatment (SBIRT)Pre-Screening Questions How many times have you have 4 or more drinks in a day? 0How many times have you used an illegal drug or used a prescription medication for a non-medical reason? 0Performed by: Enid Light LPN, August 25, 2019 8:38 AMPatient History Medical History:[place] DiseaseDiverticulitisSurgical History:Tubal ligationAdenoidectomycyst removal on breast Gallbladder RemovedPartial Hysterectomy Family History:FH- CADiabetes (Mother)Hypertension (Mother)Social/Personal History: Chief Complaintsore throat, upset stomach, right ear acheHistory of Present Illness (HPI)49 yo female here for sore throat over the last 4 days and right earache over the last 3 days.Pt states this recent illness began as her lombardi developer was weaning her prednisone. Pt's recently tested positive for strep. Due to initial cough and shortness of breath, patient was tested for COVID19 and her test was negative 08/21/2019. HPI performed by: Allen MAHONEY, August 25, 2019 9:00 AMTransitions of Care InboundProblem ReviewProblem List was reviewed and/or updated during this visit.Medication Reconciliation & ReviewMedication List was reviewed and/or updated during this visit, including review of any [id number] medications, herbal therapies, and/or supplements.Allergy ReviewAllergy List was reviewed and/or updated during this visit.Provider Calculated and Reviewed all Clinical Protocols for patient today. Review of Systems General: Complains of fatigue, f eeling ill. Denies chills, dizziness, fever. Ears/Nose/Throat: Complains of earache, nasal congestion, sore throat. Denies difficulty swallowing, swollen glands. Cardiovascular: Denies chest pain, palpitations, feeling faint. Respiratory: Denies cough, difficulty breathing, shortness of breath. Gastrointestinal: Complains of nausea. Denies vomiting, diarrhea, pain or discomfort. Neurologic: Denies weakness, feeling faint. Physical ExamGeneral Appearance: well nourished, well hydrated, no acute distressEyes, External: conjunctivae and lids normal, EOMIExternal Ears: normal, no lesions or def ormitiesHearing: grossly intactOtoscopy: canals clear, tympanic membranes intact, no fluid, light reflex intact bilaterallyExternal Nose: normal, no lesions or deformitiesNasal: mucosa, septum, and turbinates normal, nares patentLips/Teeth/Gums: no gingival inflammation, no labial lesionsPharynx: tongue normal, posterior pharynx without erythema or exudate, no thrush/aphthous ulcerNeck: supple, no masses, trachea midline, full range of motion of neck, no lymphadenopathyRespiratory, Auscultation: clear to auscultation bilaterally; no rales, rhonchi, or wheezesCardiovascular, Auscultation: S1, S2 audible; no murmur, rub, or gallop; RRRGait & Station: normalOrientation: oriented to time, place, and personJudgment & Insight: intactCare Management Plan Transitions of CareInboundRate Your HealthIn general, would you say your health is? GoodAssessment & Plan Problems:Added: Acute pharyngitis, unspecified (ICD10- J02.9) Assessment: Instructions: Negative rapid strep. Will send throat cu lture and call you if that is positive. Otherwise, likely viral. Recommend warm salt water gargles, losanges, hot tea. Encourage plenty of fluids, soft foods such as jello and pudding. May use acetaminophen (Tylenol) or ibuprofen(Motrin) as directed on over the counter packaging, as needed for pain or inflammation.Otalgia of right ear ([id number]) Assessment: Instructions: No ear infection today. Will monitor.Patient Instructions/Care Plan: Acute pharyngitis- unspecified: Negative rapid strep. Will send throat culture and call you if that is positive. Otherwise, likely viral. Recommend warm salt water gargles, losanges, hot tea. Encourage plenty of fluids, soft foods such as jello and pudding. May use acetaminophen (Tylenol) or ibuprofen(Motrin) as directed on over the counter packaging, as needed for pain or inflammation.Otalgia of right ear: No ear infection today. Will monitor. Plan developed in collaboration with patient and/or familyMedications:BOTOX 100 UNIT INJECTION SOLUTION RECONSTITUTEDALBUTEROL SULFATE HFA 108 (90 BASE) MCG/ACT INHALATION AEROSOL SOLUTIONALBUTEROL SULFATE (2.5 MG/3ML) 0.083% INHALATION NEBULIZATION SOLUTIONPREDNISONE 5 MG ORAL TABLETBREO ELLIPTA 100-25 MCG/INH INHALATION AEROSOL POWDER BREATH ACTIVATEDMedication Changes:Added: BOTOX 100 UNIT INJECTION SOLUTION RECONSTITUTED-every 3 months for migrainesRemoved:GABAPENTIN 300 MG ORAL CAPSU LE-prnChanged:From: ORAL PREDNISONE 10 MG (21) ORAL TABLET THERAPY PACK Qty: [id number] To: PREDNISONE 5 MG ORAL TABLET-1 tab po dailyAllergies:REGLAN (Critical)PHENERGAN (Critical)Orders:Adult - Ofc Vst, EST, Level II [CPT-22458] Rapid Strep [CPT-07327] Throat Culture [CPT-91930] Follow-Up Return to clinic: as needed Clinical Visit Summary Completed Name Value Range Interpretation Code Description Data Nancy rce(s) Supporting Document(s) ID Date Data Source [id number] 08/25/2019 08:33:54 AM EDT [facility] Name Value Range Interpretation Code Description Data Nancy rce(s) Supporting Document(s) RAPID STREP negative [facility] ID Date Data Source [id number] 08/18/2019 10:20:00 AM EDT [facility] Name Value Range Interpretation Code Description Data Nancy rce(s) Supporting Document(s) SARS CORONAVIRUS 2 RNA [facility] This lab was ordered by [facility] and reported by [facility]. ID Date Data Source [id number] 05/14/2019 02:33:00 PM EST [facility] ([facility], ) Name Value Range Interpretation Code Description Data Nancy rce(s) Supporting Document(s) Blood Urea Nitrogen 12 mg/dL 7-18 Normal (applies to non-nume matilde results) [facility] ([facility]) follow-up labs acceptable Creatinine For GFR 0.98 mg/dL 0.55-1.30 Normal (applies to non -numeric results) [facility]) follow-up labs acceptable Glucose, Fasting 81 mg/dL 70-100 Normal (applies to non-numeric results) [facility] ([facility]) follow-up labs acceptable Glomerular Filtration Rate Laboratory test result Normal (applies to non- numeric results) [facility]) follow-up labs acceptable Sodium Level 142 meq/L 136-145 Normal (applies to non-numeric res ults) [facility]) follow-up labs acceptable Chloride Level 106 meq/L 98-107 Normal (applies to non-numeric r esults) [facility]) follow-up labs acceptable Carbon Dioxide Level 30 meq/L 21-32 Normal (applies to non-num angelic results) [facility]) follow-up labs acceptable Potassium Serum 4.4 meq/L 3.5-5.1 Normal (applies to non-numeric results) [facility]) follow-up labs acceptable Calcium Level 9.5 mg/dL 8.5-10.1 Normal (applies to non-numeric re sults) [facility]) follow-up labs acceptable Ast/Sgot 13 U/L 7-37 Normal (applies to non-numeric resul ts) [facility]) follow-up labs acceptable Anion Gap 6 meq/L 8-16 Below low normal [facility] ( [facility]) follow-up labs acceptable Alt/SGPT 23 U/L 12-78 Normal (applies to non-numeric resul ts) [facility]) follow-up labs acceptable Alkaline Phosphatase 60 U/L 45-117 Normal (applies to non-num angelic results) [facility]) follow-up labs acceptable Albumin 3.8 GM/DL 3.2-5.2 Normal (applies to non-numeric resul ts) [facility]) follow-up labs acceptable Bilirubin,Total 0.9 mg/dL 0.2-1.0 Normal (applies to non-numeric results) [facility]) follow-up labs acceptable Total Protein 6.7 GM/DL 6.4-8.2 Normal (applies to non-numeric re sults) [facility]) follow-up labs acceptable Albumin/Globulin Ratio 1.31 1.00-1.93 Normal (applies to non-numeric results) [facility]) follow-up labs acceptable ID Date Data Source [id number] 05/14/2019 02:33:00 PM EST [facility] ([facility]) Name Value Range Interpretation Code Description Data Nancy rce(s) Supporting Document(s) White Blood Count 6.6 10 4.0-10.0 Normal (applies to non-numeri c results) [facility]) follow-up labs acceptable Red Blood Count 4.41 10 4.00-5.40 Normal (applies to non-numeric results) [facility]) follow-up labs acceptable Hematocrit 41.0 % 36.0-47.0 Normal (applies to non-numeric resul ts) [facility]) follow-up labs acceptable Hemoglobin 13.3 g/dL 12.0-15.5 Normal (applies to non-numeric resul ts) [facility]) follow-up labs acceptable Mean Corpuscular Hemoglobin 30.2 pg 27.0-33.0 Norm al (applies to non-numeric results) [facility]) follow-up labs acceptable Mean Corpuscular Volume 93.0 fl 80.0-96.0 Normal ( applies to non-numeric results) [facility]) follow-up labs acceptable Mean Corpuscular HGB Conc 32.4 g/dL 32.0-36.5 Normal (applies to non-numeric results) [facility]) follow-up labs acceptable Neutrophils % 77.9 % 36.0-66.0 Above high normal [facility]) follow-up labs acceptable Platelet Count, Automated 264 10 150-450 Normal (applies to non-numeric results) [facility]) follow-up labs acceptable Red Cell Distribution Width 15.1 % 11.5-14.5 Above high normal [facility] ([facility]) follow-up labs acceptable Lymph % 13.5 % 24.0-44.0 Below low normal [facility] ( [facility]) follow-up labs acceptable [place] % 6.4 % 0.0-5.0 Above high normal [facility]) follow-up labs acceptable Immature Granulocyte % 0.8 % 0-3.0 Normal (applies to non-n umeric results) [facility]) follow-up labs acceptable Eos % 0.9 % 0.0-3.0 Normal (applies to non-numeric resul ts) [facility]) follow-up labs acceptable Baso % 0.5 % 0.0-1.0 Normal (applies to non-numeric resul ts) [facility] ([facility]) follow-up labs acceptable Neutrophils # 5.2 10 1.5-8.5 Normal (applies to non-numeric re sults) [facility] ([facility]) follow-up labs acceptable Nucleated Red Blood Cell % 0.0 % 0-0 Normal (applies to n on-numeric results) [facility] ([facility]) follow-up labs acceptable Lymph # 0.9 10 1.5-5.0 Below low normal [facility] ( [facility]) follow-up labs acceptable [place] # 0.4 10 0.0-0.8 Normal (applies to non-numeric resul ts) [facility] ([facility]) follow-up labs acceptable Eos # 0.1 10 0.0-0.5 Normal (applies to non-numeric resul ts) [facility] ([facility]) follow-up labs acceptable Baso # 0.0 10 0.0-0.2 Normal (applies to non-numeric resul ts) [facility] ([facility]) follow-up labs acceptable Procedure Social History Code Duration Value Status Description Data Source(s ) Smoking 03/17/2020 12:00:00 AM EDT Never Smoked Cigarettes com pleted Never Smoked Cigarettes [facility] ([facility]) Smoking 11/23/2019 12:00:00 AM EDT Patient has n ever smoked (pipe, cigarette, cigar) completed Patient has never smoked (pipe, cigarett e, cigar) [facility] ([facility]) Smoking 11/18/2019 12:00:00 AM EDT Patient has never smoked co mpleted Patient has never smoked [facility] ([facility]) Vital Signs ID Date Data Source UNK Name Value Range Interpretation Code Description Data Source(s) Body weight 80.741 kg 80.741 kg [facility] ([facility]) [place] body weight 120 [lb_av] 120 [lb_av] [facility] ([facility]) Body mass index (BMI) [Ratio] 30.6 kg/m2 30.6 k g/m2 [facility] ([facility]) Body weight 178.00 [lb_av] 178.00 [lb_av] [facility] T ([facility], ) Body height 64 [in_i] 64 [in_i] [facility] ([facility], ) 5'4" Oxygen saturation in Arterial blood by Pulse oximetry 98 % 98 % [facility] ([facility], ) Room Air Heart rate 80 /min 80 /min [facility] ([facility], ) Diastolic blood pressure 70 mm[Hg] 70 mm[Hg] [facility] ([facility], ) Systolic blood pressure 118 mm[Hg] 118 mm[Hg] M [facility] ([facility], ) [place] body weight 120 [lb_av] 120 [lb_av] [facility] T ([facility], ) Body height 64 [in_i] 64 [in_i] [facility] ([facility], ) 5'4" Body temperature 37.0 Candace 37.0 Candace [facility] ( [facility]) Body temperature 98.6 [degF] 98.6 [degF] [facility] ([facility]) Heart rate 110 /min 110 /min [facility] ([facility]) Diastolic blood pressure 82 mm[Hg] 82 mm[Hg] [facility] ([facility]) Systolic blood pressure 116 mm[Hg] 116 mm[Hg] [facility] ([facility]) Body mass index (BMI) [Ratio] 32.7 kg/m2 32.7 k g/m2 [facility] ([facility]) Body weight 179.00 [lb_av] 179.00 [lb_av] [facility] T ([facility]) Body height 62 [in_i] 62 [in_i] [facility] ([facility]) 5'2" Body weight 80.741 kg 80.741 kg [facility] ([facility], ) [place] body weight 120 [lb_av] 120 [lb_av] [facility] T ([facility], ) Body mass index (BMI) [Ratio] 30.6 kg/m2 30.6 k g/m2 [facility] ([facility], ) Body weight 178.00 [lb_av] 178.00 [lb_av] [facility] ([facility], ) Body height 64 [in_i] 64 [in_i] [facility] ([facility]) 5'4" Oxygen saturation in Arterial blood by Pulse oximetry 98 % 98 % [facility] ([facility]) Heart rate 96 /min 96 /min [facility] ([facility]) Diastolic blood pressure 84 mm[Hg] 84 mm[Hg] [facility] ([facility]) Systolic blood pressure 110 mm[Hg] 110 mm[Hg] M [facility] ([facility]) Body height 64 [in_i] 64 [in_i] [facility] ([facility]) 5'4" Body weight 83.462 kg 83.462 kg [facility] ([facility]) Body mass index (BMI) [Ratio] 31.6 kg/m2 31.6 k g/m2 [facility] ([facility]) Body weight 184.00 [lb_av] 184.00 [lb_av] [facility] ([facility]) Body height 64 [in_i] 64 [in_i] [facility] ([facility]) 5'4" Oxygen saturation in Arterial blood by Pulse oximetry 97 % 97 % [facility] ([facility]) Heart rate 88 /min 88 /min [facility] ([facility]) Diastolic blood pressure 86 mm[Hg] 86 mm[Hg] [facility] ([facility]) Systolic blood pressure 124 mm[Hg] 124 mm[Hg] M [facility]) Body height 64 [in_i] 64 [in_i] [facility] ([facility]) 5'4" Diastolic blood pressure 82 mm[Hg] 82 mm[Hg] eCW1 ([facility]) Systolic blood pressure 118 mm[Hg] 118 mm[Hg] e CW1 ([facility]) Body temperature 98.2 [degF] 98.2 [degF] eCW1 ( [facility]) Respiratory rate 18 /min 18 /min eCW1 ([facility]) Heart rate 95 /min 95 /min eCW1 ([facility]) Body mass index (BMI) [Ratio] 33.87 kg/m2 33.87 kg/m2 eCW1 ([facility]) Body height 62 [in_us] 62 [in_us] W1 ([facility]) Body weight Measured 185.2 [lb_av] 185.2 [lb_av ] W1 ([facility]) Patient Treatment Plan of Care Planned Activity Planned Date Details Description Data Source (s) Diclofenac Sodium 50 MG Delayed Release Oral Tablet 03/23/20 12:00:00 AM [facility] 12 HR Orphenadrine Citrate 100 MG Extended Release Ora l Tablet 03/23/2019 12:00:00 AM [facility]
[2020-06-18] MEDS ORDERED: NS 1,000 ML IV ONE ×2 (12:30→14:00)
[2020-06-18] MEDS ORDERED: KETOROLAC 30 MG/ML 1ML VIAL IV ONE (12:30)
[2020-06-18 12:36] LABS: BASO % 0.4 % (0.0-1.0); EOS # 0.1 10^3/uL (0.0-0.5); EOS % 0.8 % (0.0-3.0); HEMATOCRIT 42.1 % (36.0-47.0); HEMOGLOBIN 13.9 g/dl (12.0-15.5); LYMPH # 1.5 10^3/uL (1.5-5.0); MEAN CORPUSCULAR HEMOGLOBIN 29.6 pg (27.0-33.0); MEAN CORPUSCULAR VOLUME 89.8 fl (80.0-96.0); MONO # 0.9 10^3/uL (0.0-0.8); NEUTROPHILS # 7.3 10^3/uL (1.5-8.5); NEUTROPHILS % 74.5 % (36.0-66.0); PLATELET COUNT, AUTOMATED 265 10^3/uL (150-450); RED BLOOD COUNT 4.69 10^6/uL (4.00-5.40); WHITE BLOOD COUNT 9.8 10^3/uL (4.0-10.0)
[2020-06-18] MEDS ORDERED: ISOVUE-370 76% 100ML VIAL As Ordered ONE (12:45)
[2020-06-18 13:00] LABS: ALBUMIN 3.9 GM/DL (3.2-5.2); BILIRUBIN,DIRECT 0.3 MG/DL (0.0-0.2); BILIRUBIN,TOTAL 1.3 MG/DL (0.2-1.0)
--- OUTSIDE RECORDS SUMMARY | 2020-06-18 13:07 | CCD ---
Author Author [facility] Organization [facility] Address Unknown Phone Unavailable Support Name Relationship Address Phone Belinda Ruiz Next Of Kin [address] [place] [address] DOLLAR GENERAL Next Of Kin [address] [place] [phone] Gregorio Johnston MD Next Of Kin [address] [place] [address] Karma Plata Next Of Kin [address] [place] [address] CHADD BACA Next Of Kin [address] [facility] [address] [place] [address] [place] [address] UN TIMELESS Next Of Kin [address] [place] [address] Alexandria RIZVI JR Next Of Kin [address] [place] [id number] [employer] Next Of Kin Unknown Unavail able [place] Next Of Kin [address] [place] [address] [place] Next Of Kin Unknown Unavailable SKH* Next Of Kin [address] [place] [address] SEN GUTIERREZ Next Of Kin [address] [place] [address] [place] [address] YAMILA WELCH Next Of Kin [address] [facility] [address] [place] [address] UE Next Of Kin Unknown Unavailable OLLIES BARGAIN OUTLET Next Of [place] [address] 315UN Yamila Welch ECON [address] [facility] [address] [place] [address] Unavailable Care Team Providers Care Senior Mechanical Designer Name Role Phone Belinda Rivero DISH MACHINE OPERATOR DISH MACHINE OPERATOR Unavailable Unavailable CANUTE, W BREEZY MD [...] BREEZY MD Unavailable Unavailable Rivero, F Belinda DISH MACHINE OPERATOR-BC Unavailable Unavailable Rivero, F Belinda DISH MACHINE OPERATOR-BC Unavailable Unavailable Rivero, F Belinda DISH MACHINE OPERATOR-BC Unavailable Unavailable Rivero, F Belinda DISH MACHINE OPERATOR-BC Unavailable Unavailable Rivero, F Belinda DISH MACHINE OPERATOR-BC Unavailable Unavailable Rivero, F Belinda DISH MACHINE OPERATOR-BC Unavailable Unavailable Rivero, F Belinda DISH MACHINE OPERATOR-BC Unavailable Unavailable Rivero, F Belinda DISH MACHINE OPERATOR-BC Unavailable Unavailable Rivero, F Belinda DISH MACHINE OPERATOR-BC Unavailable Unavailable Rivero, F Belinda DISH MACHINE OPERATOR-BC Unavailable Unavailable Rivero, F Belinda DISH MACHINE OPERATOR-BC Unavailable Unavailable Rivero, F Belinda DISH MACHINE OPERATOR-BC Unavailable Unavailable Rivero, F Belinda DISH MACHINE OPERATOR-BC Unavailable Unavailable Rivero, F Belinda DISH MACHINE OPERATOR-BC Unavailable Unavailable Rivero, F Belinda DISH MACHINE OPERATOR-BC Unavailable Unavailable Rivero, F Belinda DISH MACHINE OPERATOR-BC Unavailable Unavailable Rivero, F Belinda DISH MACHINE OPERATOR-BC Unavailable Unavailable Rivero, F Belinda DISH MACHINE OPERATOR-BC Unavailable Unavailable Rivero, F Belinda DISH MACHINE OPERATOR-BC Unavailable Unavailable Rivero, F Belinda DISH MACHINE OPERATOR-BC Unavailable Unavailable Rivero, F Belinda DISH MACHINE OPERATOR-BC Unavailable Unavailable Rivero, F Belinda DISH MACHINE OPERATOR-BC Unavailable Unavailable Amaya, A Raul MD [...] A Raul MD Unavailable Unavailable Amaya, A Ralu MD Unavailable Unavailable Amaya, A Raul MD [...] is protected by Article 27-F of the [facility] Public Health law. If you continue you may have access to information: Regarding HIV / AIDS; Provided by facilities licensed or operated by the [facility] Office of Mental Health; or Provided by the [facility] Office for People With Developmental Disabilities. If such information is present, then the following [facility] mandated warning applies: This information has been [...] law may result in a fine or nursing home sentence or both. A general authorization for [...] Oral Tablet [Reglan] Confus ion Active eCW1 ([facility]) Family History Family Member Name Family Member Gender Family Member Status Date o f Status Description Data Source(s) Unknown Male Problem MEDENT ([facility]) Encounters Encounter Providers Location Date Indications Data Source(s ) Outpatient Attender: BREEZY SUMMERS MD [facility] Internal Med at [place] 11/23/2019 03:00:00 PM EDT [facility] ([facility]) Outpatient Attender: Malinda Bryant/Carrillo/Timur/Guillermo dobbs 11/18/2019 03:00:00 PM EDT [facility] ([facility] Outpatient 10/28/2019 05:19:00 AM EDT [facility] Radiology Imaging Outpatient Attender: MICKKAIN YIN [facility] 05/2019 02:50:02 PM EDT [facility] Outpatient Attender: DIAN HO DENZEL YIN [facility] 08/18 11:28:00 AM EDT [facility] Outpatient Attender: ALLEN NIÑO [facility] 09/07/2019 11:28:00 AM EDT [facility] [address] [place] [id number] 08/31/2019 12:00:00 AM EDT eCW1 ([facility] hospital) Outpatient Attender: ALLEN NIÑO [facility] 08/27/2019 08:34:01 AM EDT [facility] Outpatient Attender: DIAN YIN [facility] 08/17 08:34:00 AM EDT [facility] Outpatient Attender: ALLEN NIÑO [facility] 08/25/2019 09:12:01 AM EDT [facility] Outpatient Attender: MIKHAIL DOUGHERTY 07/22/2019 12:46:01 PM [facility] Outpatient Attender: Belinda JEAN 07/22/2019 12: 45:03 PM [facility] Outpatient Attender: MIKHAIL DOUGHERTY 07/21/2019 08:13:00 AM [facility] Outpatient 07/13/2019 07:57:00 PM [facility] Radiology Imaging Outpatient 07/07/2019 08:07:00 AM [facility] Outpatient Attender: Belinda JEAN FP 06/30/2019 10: 36:02 AM [facility] Outpatient Attender: Raul Amaya MD 06/22/2019 12:00:00 AM [facility] Outpatient Attender: Malinda Bryant/Carrillo/Timur/Guillermo ndl 06/10/2019 07:30:00 AM EST MED[facility] ([facility] Outpatient Attender: MIKHAIL ELIZONDO FP 05/14/2019 03:50:01 PM [facility] [address] [place] [address] 04/30/2019 12:00:00 AM EST eCW1 (Critical access hospital) Outpatient Attender: Raul Amaya MD 04/20/2019 12:00:00 AM EST [facility] Medications Medication Brand Name Start Date [...] 03/17/2020 12:00:00 AM EDT ORAL active MEDENT ([facility] Hydroxychloroquine Sulfate 200 MG Oral Tablet [Plaquenil] Pl aquenil 03/17/2020 12:00:00 AM EDT ORAL active M EDENT ([facility] ) 2.5 mg 02/22/2020 12:00:00 AM [...] TABLET BY MOUTH EVERY DAY SOLD: 01/09/2020 [facility] 2.5 mg 11/27/2019 12:00:00 AM EDT [...] Methotrexate 11/18/2019 12:00:00 AM EDT completed MEDENT ([facility] ) 1 mg 11/15/2019 12:00:00 [...] times daily as needed for Muscle spasms [facility] Cervical spondylosis Diclofenac Sodium 50 MG Delayed Release Oral Tablet Diclofenac Sodium 50 MG Oral Tablet Delayed Release (VOLTAREN) Diclofenac Sodium 50 MG Oral Tablet Trupti yed Release (VOLTAREN) 03/23/2019 12:00:00 AM EST 50 mg Oral active Cervical spondylosis Take 1 tablet by mouth Two Times Daily [facility] Cervical spondylosis 1 mg 02/24/2019 12:00:00 [...] type / Coverage type Policy ID Covered republican ID Covered republican's relationship to an Policy An Plan Information [employer]-BS PPO 306 [id number] [id number] [employer] B [id number] P [id number] [id number] [employer] BCBS P [id number] S [id number] [id number] [employer] BC[employer] P [id number] S GLX [id number] BCBS [place] [address]34 [id number] WI2 [id number] BLUE CARD C [id number] Spouse [id number] [employer] BCBS B [id number] P GLX [id number] [employer] Health Maintenance Organization (HMO) [id number] Family Dependent [id number] [employer] Health Maintenance Organization (HMO) [id number] Family Dependent [id number] BLUE CROSS BLUE SHIELD -O/P [id number] [employer] Health Maintenance Organization (HMO) [id number] Family Dependent [id number] [employer] BCYO P [id number] S [id number] [id number] [employer] Health Maintenance Organization (HMO) [id number] Self [id number] [employer] P [id number] S GLX [id number] BCBS [place] [address]34 [id number] WI2 [id number] [employer] BCYO P [id number] S GLX [id number] BCBS OF [place] [id number]/834 [id number] WI2 [id number] SELF PAY ONLY UNAVAILABLE UNAV AILABLE UNHC COMMUNITY PLAN [facility] [id number] SP [id number] SELF PAY UNAVAILABLE SP UNAVAILA BLE MEDICAID [id number] SP [id number] MEDICAID [id number] SP [id number] [facility] FAM[facility] HLTH PLUS [id number] SP [id number] VALUE OPTIONS (FHP) [id number] SP [id number] [facility] [id number] 2 [id number] [facility] [id number] 2 [id number] [facility] Health Maintenance Organization (HMO) Self MEDICAID -O/P [id number] MEDICAID -O/P [id number] 18 [id number] [facility] O [id number] S [id number] MEDICAID -O/P EMERGENCY ROOM [id number] Problems, Conditions, and Diagnoses Code Display Name Description Problem Type Effective Dates Data Source(s) [id number] Otalgia of right ear Otalgia of right ear 08/25/2019 09:10:18 AM EDT [facility] [id number] Acute pharyngitis, unspecified Acute pharyngitis, unsp ecified 08/25/2019 09:10:18 AM EDT [facility] D86.9 [id number] Sarcoidosis Problem 04/30/2019 12:00:00 AM E eCW1 ([facility]) Surgeries/Procedures Procedure Description Date Indications Data Source(s) Spirometry 06/10/2019 12:00:00 AM SMOOTH ARGUELLO ([facility], ) Results ID Date Data Source [id number] 03/15/2020 02:26:00 PM EDT BREANN ([facility], ) Name Value Range Interpretation Code Description Data Nancy rce(s) Supporting Document(s) Glucose, Fasting 95 mg/dL 70-100 Normal (applies to non-numeric results) MEDENT ([facility], ) Blood Urea Nitrogen 7 mg/dL 7-18 Normal (applies to non-nume matilde results) [facility] ([facility], ) Sodium Level 140 meq/L 136-145 Normal (applies to non-numeric res ults) [facility] ([facility], ) Glomerular Filtration Rate Laboratory test result Normal (applies to non- numeric results) [facility] ([facility], ) <content>Units are mL/min/1.73 m2</content>
<content></content>
<content>Chronic Kidney Disease Staging per NKF:</content>
<content></content>
<content>Stage I & II GFR >=60 Normal to Mildly Decreased</content>
<content>Stage III GFR 30- 59 Moderately Decreased</content>
<content>Stage IV GFR 15-29 Severely Decreased</content>
<content>Stage V GFR <15 Very Little GFR Left</content>
<content>ESRD GFR <15 on PHARMACY BENEFIT MANAGER</content>
<content></content> Creatinine For GFR 0.87 mg/dL 0.55-1.30 Normal (applies to non -numeric results) MEDENT ([facility], ) Potassium Serum 4.1 meq/L 3.5-5.1 Normal (applies to non-numeric results) [facility] ([facility], ) Carbon Dioxide Level 25 meq/L 21-32 Normal (applies to non-num angelic results) [facility] ([facility], ) Chloride Level 108 meq/L 98-107 Above high normal MED ENT ([facility], ) Calcium Level 9.9 mg/dL 8.5-10.1 Normal (applies to non-numeric re sults) [facility] ([facility], ) Anion Gap 7 meq/L 8-16 Below low normal [facility] ) Ast/Sgot 21 U/L 7-37 Normal (applies to non-numeric resul ts) MEDENT ([facility], ) Alt/SGPT 68 U/L 12-78 Normal (applies to non-numeric resul ts) [facility] ([facility], ) Alkaline Phosphatase 72 U/L 45-117 Normal (applies to non-num angelic results) [facility] ([facility], ) Total Protein 6.6 GM/DL 6.4-8.2 Normal (applies to non-numeric re sults) [facility], ) Bilirubin,Total 1.2 mg/dL 0.2-1.0 Above high normal ME DENT ([facility]) Albumin 4.0 GM/DL 3.2-5.2 Normal (applies to non-numeric resul ts) MEDENT ([facility]) Albumin/Globulin Ratio 1.5 1.2-2.2 Normal (applies to non-n umeric results) [facility] ([facility]) ID Date Data Source [id number] 03/15/2020 02:26:00 PM EDT MEDENT ([facility]) Name Value Range Interpretation Code Description Data Nancy rce(s) Supporting Document(s) Red Blood Count 4.39 10 4.00-5.40 Normal (applies to non-numeric results) [facility] ([facility]) White Blood Count 6.3 10 4.0-10.0 Normal (applies to non-numeri c results) [facility] ([facility]) Mean Corpuscular Volume 94.1 fl 80.0-96.0 Normal ( applies to non-numeric results) [facility] ([facility]) Hemoglobin 13.3 g/dL 12.0-15.5 Normal (applies to non-numeric resul ts) [facility] ([facility]) Hematocrit 41.3 % 36.0-47.0 Normal (applies to non-numeric resul ts) [facility] ([facility]) Mean Corpuscular Hemoglobin 30.3 pg 27.0-33.0 Norm al (applies to non-numeric results) [facility] ([facility]) Mean Corpuscular HGB Conc 32.2 g/dL 32.0-36.5 Normal (applies to non-numeric results) [facility] ([facility]) Platelet Count, Automated 266 10 150-450 Normal (applies to non-numeric results) [facility] ([facility]) Red Cell Distribution Width 14.1 % 11.5-14.5 Norm al (applies to non-numeric results) [facility]) Neutrophils % 73.2 % 36.0-66.0 Above high normal MEDE NT ([facility]) Lymph % 17.4 % 24.0-44.0 Below low normal MEDENT ( [facility]) [place] % 7.4 % 0.0-5.0 Above high normal MEDENT ([facility]) Eos % 0.5 % 0.0-3.0 Normal (applies to non-numeric resul ts) [facility] ([facility]) Baso % 0.9 % 0.0-1.0 Normal (applies to non-numeric resul ts) [facility] ([facility]) Nucleated Red Blood Cell % 0.0 % 0-0 Normal (applies to n on-numeric results) [facility] ([facility]) Immature Granulocyte % 0.6 % 0-3.0 Normal (applies to non-n umeric results) [facility] ([facility]) [place] # 0.5 10 0.0-0.8 Normal (applies to non-numeric resul ts) [facility] ([facility]) Neutrophils # 4.6 10 1.5-8.5 Normal (applies to non-numeric re sults) [facility] ([facility]) Lymph # 1.1 10 1.5-5.0 Below low normal [facility] ( [facility]) Eos # 0.0 10 0.0-0.5 Normal (applies to non-numeric resul ts) [facility] ([facility]) Baso # 0.1 10 0.0-0.2 Normal (applies to non-numeric resul ts) [facility] ([facility]) ID Date Data Source [id number] 03/08/2020 11:58:00 AM EDT [facility] ([facility]) Name Value Range Interpretation Code Description Data Nancy rce(s) Supporting Document(s) Glucose, Fasting 92 mg/dL 70-100 Normal (applies to non-numeric results) [facility] ([facility]) Blood Urea Nitrogen 10 mg/dL 7-18 Normal (applies to non-nume matilde results) [facility] ([facility]) Creatinine For GFR 0.88 mg/dL 0.55-1.30 Normal (applies to non -numeric results) [facility] ([facility]) Sodium Level 140 meq/L 136-145 Normal (applies to non-numeric res ults) [facility] ([facility], ) Glomerular Filtration Rate Laboratory test result Normal (applies to non- numeric results) [facility] ([facility]) <content>Units are mL/min/1.73 m2</content>
<content></content>
<content>Chronic Kidney Disease Staging per NKF:</content>
<content></content>
<content>Stage I & II GFR >=60 Normal to Mildly Decreased</content>
<content>Stage III GFR 30- 59 Moderately Decreased</content>
<content>Stage IV GFR 15-29 Severely Decreased</content>
<content>Stage V GFR <15 Very Little GFR Left</content>
<content>ESRD GFR <15 on PHARMACY BENEFIT MANAGER</content>
<content></content> Potassium Serum 4.0 meq/L 3.5-5.1 Normal (applies to non-numeric results) [facility] ([facility] ) Carbon Dioxide Level 27 meq/L 21-32 Normal (applies to non-num angelic results) [facility] ([facility]) Anion Gap 4 meq/L 8-16 Below low normal [facility] ( [facility]) Chloride Level 109 meq/L 98-107 Above high normal MED ENT ([facility]) Calcium Level 10.4 mg/dL 8.5-10.1 Above high normal MEDE NT ([facility]) Ast/Sgot 100 U/L 7-37 Above high normal [facility] Alt/SGPT 222 U/L 12-78 Above high normal [facility] ([facility]) Alkaline Phosphatase 70 U/L 45-117 Normal (applies to non-num angelic results) [facility]) Bilirubin,Total 0.9 mg/dL 0.2-1.0 Normal (applies to non-numeric results) [facility] ([facility]) Albumin 4.0 GM/DL 3.2-5.2 Normal (applies to non-numeric resul ts) [facility] Total Protein 6.9 GM/DL 6.4-8.2 Normal (applies to non-numeric re sults) [facility]) Albumin/Globulin Ratio 1.4 1.2-2.2 Normal (applies to non-n umeric results) [facility]) ID Date Data Source [id number] 03/08/2020 11:58:00 AM EDT [facility] ([facility]) Name Value Range Interpretation Code Description Data Nancy rce(s) Supporting Document(s) White Blood Count 6.8 10 4.0-10.0 Normal (applies to non-numeri c results) [facility]) Red Blood Count 4.40 10 4.00-5.40 Normal (applies to non-numeric results) [facility]) Hemoglobin 13.7 g/dL 12.0-15.5 Normal (applies to non-numeric resul ts) [facility]) Hematocrit 42.0 % 36.0-47.0 Normal (applies to non-numeric resul ts) [facility]) Mean Corpuscular HGB Conc 32.6 g/dL 32.0-36.5 Normal (applies to non-numeric results) [facility]) Mean Corpuscular Volume 95.5 fl 80.0-96.0 Normal ( applies to non-numeric results) [facility]) Red Cell Distribution Width 14.3 % 11.5-14.5 Norm al (applies to non-numeric results) [facility]) Mean Corpuscular Hemoglobin 31.1 pg 27.0-33.0 Norm al (applies to non-numeric results) [facility]) Neutrophils % 66.0 % 36.0-66.0 Normal (applies to non-numeric re sults) [facility]) Platelet Count, Automated 271 10 150-450 Normal (applies to non-numeric results) [facility]) Lymph % 18.3 % 24.0-44.0 Below low normal MEDENT ( [facility]) [place] % 12.4 % 0.0-5.0 Above high normal MEDENT ([facility]) Baso % 0.6 % 0.0-1.0 Normal (applies to non-numeric resul ts) [facility]ENT ([facility]) Immature Granulocyte % 0.6 % 0-3.0 Normal (applies to non-n umeric results) [facility]ENT ([facility]) Eos % 2.1 % 0.0-3.0 Normal (applies to non-numeric resul ts) [facility] ([facility]) Neutrophils # 4.5 10 1.5-8.5 Normal (applies to non-numeric re sults) [facility] ([facility]) Nucleated Red Blood Cell % 0.0 % 0-0 Normal (applies to n on-numeric results) [facility] ([facility]) Lymph # 1.2 10 1.5-5.0 Below low normal [facility] ( [facility]) Eos # 0.1 10 0.0-0.5 Normal (applies to non-numeric resul ts) [facility] ([facility]) [place] # 0.8 10 0.0-0.8 Normal (applies to non-numeric resul ts) [facility] ([facility]) Baso # 0.0 10 0.0-0.2 Normal (applies to non-numeric resul ts) [facility] ([facility]) ID Date Data Source [id number] 11/29/2019 11:00:00 AM EDT [facility] ([facility]) Name Value Range Interpretation Code Description Data Nancy rce(s) Supporting Document(s) Normetanephrine Total Urine 134 ug/L Normal (appli es to non-numeric results) [facility] ([facility]) will discuss at follow-up Metanephrine Total Urine 60 ug/L Normal (applies to non -numeric results) [facility] ([facility]) will discuss at follow-up Metanephrine Urine 102 ug/24hr 36-209 Normal (applies to non-nume matilde results) [facility] ([facility]) will discuss at follow-up Normetanephrine Urine 228 ug/24hr 131-612 Normal (ap plies to non-numeric results) MEDENT ([facility]) will discuss at follow-up ID Date Data Source [id number] 11/17/2019 04:06:00 PM EDT [facility] ([facility]) Name Value Range Interpretation Code Description Data Nancy rce(s) Supporting Document(s) Calcitriol [Mass/volume] in Serum or Plasma 61.1 pg/mL 19.9 -79.3 Normal (applies to non-numeric results) MEDENT ([facility]) Performed at: [address] [id number] Affiliate Marketing Specialist: Jeison Hart MD, Phone: [phone] ID Date Data Source [id number] 11/17/2019 04:06:00 PM EDT [facility] ([facility]) Name Value Range Interpretation Code Description Data Nancy rce(s) Supporting Document(s) Normetanephrine Plasma 54.2 pg/mL 0.0-125.8 Normal (a pplies to non-numeric results) [facility] ([facility]) Please note reference interval change* * Metanephrine Plasma 44.2 pg/mL 0.0-88.0 Normal (applies to no n-numeric results) [facility]ENT ([facility]) Please note reference interval change* * ID Date Data Source [id number] 11/17/2019 04:06:00 PM EDT MEDENT ([facility]) Name Value Range Interpretation Code Description Data Nancy rce(s) Supporting Document(s) Calcidiol [Mass/volume] in Serum or Plasma 22.1 ng/mL 30.0- 100.0 Below low normal [facility] ([facility]) will discuss at follow-up ID Date Data Source [id number] 11/17/2019 04:06:00 PM EDT [facility] ([facility]) Name Value Range Interpretation Code Description Data Nancy rce(s) Supporting Document(s) Glucose, Fasting 83 mg/dL 70-100 Normal (applies to non-numeric results) [facility] ([facility], ) will discuss at follow-up Blood Urea Nitrogen 7 mg/dL 7-18 Normal (applies to non-nume matilde results) [facility] ([facility]) will discuss at follow-up Creatinine For GFR 1.10 mg/dL 0.55-1.30 Normal (applies to non -numeric results) [facility] ([facility]) will discuss at follow-up Glomerular Filtration Rate 56.7 Below low normal [facility] ([facility], ) <content>Units are mL/min/1.73 m2</content>
<content></content>
<content>Chronic Kidney Disease Staging per NKF:</content>
<content></content>
<content>Stage I & II GFR >=60 Normal to Mildly Decreased</content>
<content>Stage III GFR 30- 59 Moderately Decreased</content>
<content>Stage IV GFR 15-29 Severely Decreased</content>
<content>Stage V GFR <15 Very Little GFR Left</content>
<content>ESRD GFR <15 on PHARMACY BENEFIT MANAGER</content>
<content></content> Sodium Level 142 meq/L 136-145 Normal (applies to non-numeric res ults) [facility] ([facility], ) will discuss at follow-up Potassium Serum 4.3 meq/L 3.5-5.1 Normal (applies to non-numeric results) [facility] [place], ) This specimen has an elevated potassium level but there is NO visible hemolysis noted. Chloride Level 111 meq/L 98-107 Above high normal [facility] ([facility] [place], ) will discuss at follow-up Anion Gap 5 meq/L 8-16 Below low normal [facility] ( [facility]) will discuss at follow-up Carbon Dioxide Level 26 meq/L 21-32 Normal (applies to non-num angelic results) [facility] ([facility]) will discuss at follow-up Calcium Level 9.4 mg/dL 8.5-10.1 Normal (applies to non-numeric re sults) [facility] ([facility]) will discuss at follow-up Ast/Sgot 22 U/L 7-37 Normal (applies to non-numeric resul ts) [facility] ([facility]) will discuss at follow-up Alt/SGPT 50 U/L 12-78 Normal (applies to non-numeric resul ts) [facility] ([facility]) will discuss at follow-up Alkaline Phosphatase 66 U/L 45-117 Normal (applies to non-num angelic results) [facility] ([facility]) will discuss at follow-up Bilirubin,Total 0.8 mg/dL 0.2-1.0 Normal (applies to non-numeric results) [facility] ([facility]) will discuss at follow-up Total Protein 6.9 GM/DL 6.4-8.2 Normal (applies to non-numeric re sults) [facility] ([facility]) will discuss at follow-up Albumin/Globulin Ratio 1.2 1.2-2.2 Normal (applies to non-n umeric results) [facility] ([facility]) will discuss at follow-up Albumin 3.8 GM/DL 3.2-5.2 Normal (applies to non-numeric resul ts) [facility] ([facility]) will discuss at follow-up ID Date Data Source [id number] 11/17/2019 04:06:00 PM EDT [facility] ([facility]) Name Value Range Interpretation Code Description Data Nancy rce(s) Supporting Document(s) White Blood Count 8.4 10 4.0-10.0 Normal (applies to non-numeri c results) [facility] ([facility]) will discuss at follow-up Red Blood Count 4.29 10 4.00-5.40 Normal (applies to non-numeric results) [facility] ([facility]) will discuss at follow-up Hematocrit 41.1 % 36.0-47.0 Normal (applies to non-numeric resul ts) [facility] ([facility]) will discuss at follow-up Hemoglobin 13.3 g/dL 12.0-15.5 Normal (applies to non-numeric resul ts) [facility] ([facility]) will discuss at follow-up Mean Corpuscular Hemoglobin 31.0 pg 27.0-33.0 Norm al (applies to non-numeric results) [facility] ([facility]) will discuss at follow-up Mean Corpuscular Volume 95.8 fl 80.0-96.0 Normal ( applies to non-numeric results) [facility] ([facility]) will discuss at follow-up Red Cell Distribution Width 13.9 % 11.5-14.5 Norm al (applies to non-numeric results) [facility] ([facility]) will discuss at follow-up Mean Corpuscular HGB Conc 32.4 g/dL 32.0-36.5 Normal (applies to non-numeric results) [facility] ([facility]) will discuss at follow-up Platelet Count, Automated 298 10 150-450 Normal (applies to non-numeric results) [facility] ([facility]) will discuss at follow-up Neutrophils % 79.1 % 36.0-66.0 Above high normal [facility] ([facility]) will discuss at follow-up Lymph % 11.6 % 24.0-44.0 Below low normal [facility] ( [facility]) will discuss at follow-up [place] % 6.7 % 0.0-5.0 Above high normal [facility] ([facility]) will discuss at follow-up Eos % 0.7 % 0.0-3.0 Normal (applies to non-numeric resul ts) [facility] ([facility] [place], ) will discuss at follow-up Immature Granulocyte % 1.3 % 0-3.0 Normal (applies to non-n umeric results) [facility] ([facility]) will discuss at follow-up Baso % 0.6 % 0.0-1.0 Normal (applies to non-numeric resul ts) [facility] ([facility]) will discuss at follow-up Neutrophils # 6.6 10 1.5-8.5 Normal (applies to non-numeric re sults) [facility] ([facility]) will discuss at follow-up Nucleated Red Blood Cell % 0.0 % 0-0 Normal (applies to n on-numeric results) [facility] ([facility] [place], ) will discuss at follow-up [place] # 0.6 10 0.0-0.8 Normal (applies to non-numeric resul ts) [facility] ([facility] [place], ) will discuss at follow-up Lymph # 1.0 10 1.5-5.0 Below low normal [facility] ( [facility] [place], ) will discuss at follow-up Baso # 0.1 10 0.0-0.2 Normal (applies to non-numeric resul ts) [facility] ([facility] [place], ) will discuss at follow-up Eos # 0.1 10 0.0-0.5 Normal (applies to non-numeric resul ts) [facility] ([facility] [place], ) will discuss at follow-up ID Date Data Source [id number] 08/25/2019 08:50:00 AM EDT [facility] Name Value Range Interpretation Code Description Data Nancy rce(s) Supporting Document(s) THROAT CULTR NORMAL NADINE PRESENT N [facility] ID Date Data Source [id number] 08/25/2019 08:33:54 AM EDT [facility] Measurements & CalculationsHeight: 67 inches (5 ft. 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 Pt's recently tested [...] during this visit, including review of any [id number] medications, herbal therapies, and/or supplements.Allergy ReviewAllergy List [...] for pain or inflammation.Otalgia of right ear ([id number]) Assessment: Instructions: No ear infection today. Will [...] MG (21) ORAL TABLET THERAPY PACK Qty: [id number] To: PREDNISONE 5 MG ORAL TABLET-1 tab po dailyAllergies:REGLAN (Critical)PHENERGAN (Critical)Orders:Adult - Ofc Vst, EST, Level II [CPT-99304] Rapid Strep [CPT-38987] Throat Culture [CPT-36807] Follow-Up Return to clinic: as needed Clinical Visit Summary Completed Name Value Range Interpretation Code Description Data Nancy rce(s) Supporting Document(s) ID Date Data Source [id number] 08/25/2019 08:33:54 AM EDT [facility] Name Value Range Interpretation Code Description Data Nancy rce(s) Supporting Document(s) RAPID STREP negative [facility] ID Date Data Source [id number] 08/18/2019 10:20:00 AM EDT [facility] Name Value Range Interpretation Code Description Data Nancy rce(s) Supporting Document(s) SARS CORONAVIRUS 2 RNA [facility] This lab was ordered by [facility] and reported by [facility]. ID Date Data Source [id number] 05/14/2019 02:33:00 PM EST [facility] ([facility], ) Name Value Range Interpretation Code Description Data Nancy rce(s) Supporting Document(s) Blood Urea Nitrogen 12 mg/dL 7-18 Normal (applies to non-nume matilde results) [facility] ([facility]) follow-up labs acceptable Creatinine For GFR 0.98 mg/dL 0.55-1.30 Normal (applies to non -numeric results) [facility]) follow-up labs acceptable Glucose, Fasting 81 mg/dL 70-100 Normal (applies to non-numeric results) [facility] ([facility]) follow-up labs acceptable Glomerular Filtration Rate Laboratory test result Normal (applies to non- numeric results) [facility]) follow-up labs acceptable Sodium Level 142 meq/L 136-145 Normal (applies to non-numeric res ults) [facility]) follow-up labs acceptable Chloride Level 106 meq/L 98-107 Normal (applies to non-numeric r esults) [facility]) follow-up labs acceptable Carbon Dioxide Level 30 meq/L 21-32 Normal (applies to non-num angelic results) [facility]) follow-up labs acceptable Potassium Serum 4.4 meq/L 3.5-5.1 Normal (applies to non-numeric results) [facility]) follow-up labs acceptable Calcium Level 9.5 mg/dL 8.5-10.1 Normal (applies to non-numeric re sults) [facility]) follow-up labs acceptable Ast/Sgot 13 U/L 7-37 Normal (applies to non-numeric resul ts) [facility]) follow-up labs acceptable Anion Gap 6 meq/L 8-16 Below low normal [facility] ( [facility]) follow-up labs acceptable Alt/SGPT 23 U/L 12-78 Normal (applies to non-numeric resul ts) [facility]) follow-up labs acceptable Alkaline Phosphatase 60 U/L 45-117 Normal (applies to non-num angelic results) [facility]) follow-up labs acceptable Albumin 3.8 GM/DL 3.2-5.2 Normal (applies to non-numeric resul ts) [facility]) follow-up labs acceptable Bilirubin,Total 0.9 mg/dL 0.2-1.0 Normal (applies to non-numeric results) [facility]) follow-up labs acceptable Total Protein 6.7 GM/DL 6.4-8.2 Normal (applies to non-numeric re sults) [facility]) follow-up labs acceptable Albumin/Globulin Ratio 1.31 1.00-1.93 Normal (applies to non-numeric results) [facility]) follow-up labs acceptable ID Date Data Source [id number] 05/14/2019 02:33:00 PM EST [facility] ([facility]) Name Value Range Interpretation Code Description Data Nancy rce(s) Supporting Document(s) White Blood Count 6.6 10 4.0-10.0 Normal (applies to non-numeri c results) [facility]) follow-up labs acceptable Red Blood Count 4.41 10 4.00-5.40 Normal (applies to non-numeric results) [facility]) follow-up labs acceptable Hematocrit 41.0 % 36.0-47.0 Normal (applies to non-numeric resul ts) [facility]) follow-up labs acceptable Hemoglobin 13.3 g/dL 12.0-15.5 Normal (applies to non-numeric resul ts) [facility]) follow-up labs acceptable Mean Corpuscular Hemoglobin 30.2 pg 27.0-33.0 Norm al (applies to non-numeric results) [facility]) follow-up labs acceptable Mean Corpuscular Volume 93.0 fl 80.0-96.0 Normal ( applies to non-numeric results) [facility]) follow-up labs acceptable Mean Corpuscular HGB Conc 32.4 g/dL 32.0-36.5 Normal (applies to non-numeric results) [facility]) follow-up labs acceptable Neutrophils % 77.9 % 36.0-66.0 Above high normal [facility]) follow-up labs acceptable Platelet Count, Automated 264 10 150-450 Normal (applies to non-numeric results) [facility]) follow-up labs acceptable Red Cell Distribution Width 15.1 % 11.5-14.5 Above high normal [facility] ([facility]) follow-up labs acceptable Lymph % 13.5 % 24.0-44.0 Below low normal [facility] ( [facility]) follow-up labs acceptable [place] % 6.4 % 0.0-5.0 Above high normal [facility]) follow-up labs acceptable Immature Granulocyte % 0.8 % 0-3.0 Normal (applies to non-n umeric results) [facility]) follow-up labs acceptable Eos % 0.9 % 0.0-3.0 Normal (applies to non-numeric resul ts) [facility]) follow-up labs acceptable Baso % 0.5 % 0.0-1.0 Normal (applies to non-numeric resul ts) [facility] ([facility]) follow-up labs acceptable Neutrophils # 5.2 10 1.5-8.5 Normal (applies to non-numeric re sults) [facility] ([facility]) follow-up labs acceptable Nucleated Red Blood Cell % 0.0 % 0-0 Normal (applies to n on-numeric results) [facility] ([facility]) follow-up labs acceptable Lymph # 0.9 10 1.5-5.0 Below low normal [facility] ( [facility]) follow-up labs acceptable [place] # 0.4 10 0.0-0.8 Normal (applies to non-numeric resul ts) [facility] ([facility]) follow-up labs acceptable Eos # 0.1 10 0.0-0.5 Normal (applies to non-numeric resul ts) [facility] ([facility]) follow-up labs acceptable Baso # 0.0 10 0.0-0.2 Normal (applies to non-numeric resul ts) [facility] ([facility]) follow-up labs acceptable Procedure Social History Code Duration Value Status Description Data Source(s ) Smoking 03/17/2020 12:00:00 AM EDT Never Smoked Cigarettes com pleted Never Smoked Cigarettes [facility] ([facility]) Smoking 11/23/2019 12:00:00 AM EDT Patient has n ever smoked (pipe, cigarette, cigar) completed Patient has never smoked (pipe, cigarett e, cigar) [facility] ([facility]) Smoking 11/18/2019 12:00:00 AM EDT Patient has never smoked co mpleted Patient has never smoked [facility] ([facility]) Vital Signs ID Date Data Source UNK Name Value Range Interpretation Code Description Data Source(s) Body weight 80.741 kg 80.741 kg [facility] ([facility]) [place] body weight 120 [lb_av] 120 [lb_av] [facility] ([facility]) Body mass index (BMI) [Ratio] 30.6 kg/m2 30.6 k g/m2 [facility] ([facility]) Body weight 178.00 [lb_av] 178.00 [lb_av] [facility] ([facility] [place], ) Body height 64 [in_i] 64 [in_i] [facility] ([facility], ) 5'4" Oxygen saturation in Arterial blood by Pulse oximetry 98 % 98 % [facility] ([facility] [place], ) Room Air Heart rate 80 /min 80 /min [facility] ([facility], ) Diastolic blood pressure 70 mm[Hg] 70 mm[Hg] [facility] ([facility] [place], ) Systolic blood pressure 118 mm[Hg] 118 mm[Hg] M [facility] ([facility] [place], ) [place] body weight 120 [lb_av] 120 [lb_av] [facility] ([facility] [place], ) Body height 64 [in_i] 64 [in_i] [facility] ([facility], ) 5'4" Body temperature 37.0 Candace 37.0 Candace [facility] ( [facility] Body temperature 98.6 [degF] 98.6 [degF] [facility] ([facility]) Heart rate 110 /min 110 /min [facility] ([facility]) Diastolic blood pressure 82 mm[Hg] 82 mm[Hg] [facility] ([facility]) Systolic blood pressure 116 mm[Hg] 116 mm[Hg] [facility] ([facility]) Body mass index (BMI) [Ratio] 32.7 kg/m2 32.7 k g/m2 [facility] ([facility]) Body weight 179.00 [lb_av] 179.00 [lb_av] [facility] ([facility]) Body height 62 [in_i] 62 [in_i] [facility] ([facility]) 5'2" Body weight 80.741 kg 80.741 kg [facility] ([facility], ) [place] body weight 120 [lb_av] 120 [lb_av] [facility] ([facility] [place], ) Body mass index (BMI) [Ratio] 30.6 kg/m2 30.6 k g/m2 [facility] ([facility] [place], ) Body weight 178.00 [lb_av] 178.00 [lb_av] [facility] ([facility] [place], ) Body height 64 [in_i] 64 [in_i] [facility] ([facility]) 5'4" Oxygen saturation in Arterial blood by Pulse oximetry 98 % 98 % [facility] ([facility]) Heart rate 96 /min 96 /min [facility] ([facility]) Diastolic blood pressure 84 mm[Hg] 84 mm[Hg] [facility] ([facility]) Systolic blood pressure 110 mm[Hg] 110 mm[Hg] M [facility] ([facility]) Body height 64 [in_i] 64 [in_i] [facility] ([facility]) 5'4" Body weight 83.462 kg 83.462 kg [facility] ([facility]) Body mass index (BMI) [Ratio] 31.6 kg/m2 31.6 k g/m2 [facility] ([facility]) Body weight 184.00 [lb_av] 184.00 [lb_av] [facility] ([facility]) Body height 64 [in_i] 64 [in_i] [facility] ([facility]) 5'4" Oxygen saturation in Arterial blood by Pulse oximetry 97 % 97 % [facility] ([facility]) Heart rate 88 /min 88 /min [facility] ([facility]) Diastolic blood pressure 86 mm[Hg] 86 mm[Hg] [facility] ([facility]) Systolic blood pressure 124 mm[Hg] 124 mm[Hg] M [facility] ([facility]) Body height 64 [in_i] 64 [in_i] [facility] ([facility]) 5'4" Diastolic blood pressure 82 mm[Hg] 82 mm[Hg] eCW1 ([facility]) Systolic blood pressure 118 mm[Hg] 118 mm[Hg] e CW1 ([facility]) Body temperature 98.2 [degF] 98.2 [degF] eCW1 ( [facility]) Respiratory rate 18 /min 18 /min eCW1 ([facility]) Heart rate 95 /min 95 /min eCW1 ([facility]) Body mass index (BMI) [Ratio] 33.87 kg/m2 33.87 kg/m2 eCW1 ([facility]) Body height 62 [in_us] 62 [in_us] W1 ([facility]) Body weight Measured 185.2 [lb_av] 185.2 [lb_av ] W1 ([facility]) Patient Treatment Plan of Care Planned Activity Planned Date Details Description Data Source (s) Diclofenac Sodium 50 MG Delayed Release Oral Tablet 03/23/20 12:00:00 AM [facility] 12 HR Orphenadrine Citrate 100 MG Extended Release Ora l Tablet 03/23/2019 12:00:[address] [facility]
--- NOTE | 2020-06-18 13:16 | REP ---
INDICATION: LLQ pain, n/v hx diverticulitis feels same. COMPARISON: Comparison CT study October 17, 2019.. TECHNIQUE: Helical scanning was acquired and 4 mm axial images are re-formatted. Coronal and sagittal MPR images were generated and reviewed. The contrast enhancement dose is 100 mL of intravenous Isovue 370. 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 The lung bases are clear on axial CT images. The liver is normal in size homogeneous in texture. The spleen is somewhat elongate but overall normal in volume. There are 2 tiny accessory splenule spirit no abnormality is noted in the pancreas. The gallbladder is surgically absent. Normal adrenal glands are observed. The kidneys enhance symmetrically and are morphologically intact. No retroperitoneal mass or adenopathy is seen. Small and large intestinal bowel loops are normal in the upper abdomen. Pelvic CT images demonstrate diverticulosis in the sigmoid colon with an elongate segment of mural thickening and inflammation in the sigmoid colon consistent with acute diverticulitis. There is some adjacent fluid in the cul-de-sac and along the left pelvic sidewall. The left ovary is somewhat high riding in this patient but normal in appearance. There is a small cystic area in the right ovary measuring 2.2 cm in diameter. No abscess is appreciated. The uterus is surgically absent. Urinary bladder is largely empty at the time of scanning but unremarkable. No abdominal wall defect is seen. No bony destructive lesion is seen. IMPRESSION: Findings consistent with acute diverticulitis of the sigmoid colon with adjacent inflammation and fluid. No abscess or free air seen. Status post cholecystectomy, hysterectomy, and appendectomy. <Electronically signed by Preston Reyes > 06/18/20 [id number]
[2020-06-18] MEDS ORDERED: metroNIDAZOLE (FLAGYL) 500MG TABLET PO ONE (13:30)
[2020-06-18] MEDS ORDERED: ONDANSETRON 4MG/2ML VIAL IV ONE (13:30)
[2020-06-18] MEDS ORDERED: MORPHINE 4 MG/ML 1ML VIAL/SYRINGE (J2270) IV ONE (13:30)
[2020-06-18] MEDS ORDERED: CIPROFLOXACIN 500MG TABLET PO ONE (13:30)
[2020-06-18] MEDS ORDERED: CIPR-249 PO (13:47)
[2020-06-18] MEDS ORDERED: FLAG500T PO (13:47)
[2020-06-18 14:56] VITALS: BP 105/59
== END 2020-06-18 15:25 | disposition home or self-care (01) ==
LOC: M ED 11:57
DX: K57.32 Diverticulitis of large intestine without perforation or abscess without bleeding (principal); Z87.19 Personal history of other diseases of the digestive system; Z87.42 Personal history of other diseases of the female genital tract; Z88.8 Allergy status to other drugs, medicaments and biological substances
CPT/HCPCS: 74177; 80047; 80076; 81001; 83605; 83690; 85025; 87040; 96361; 96374; 96375; 99284; J1885; J2270; J2405; Q9967

== ENCOUNTER 2020-11-03 05:03 | Emergency (ER) | payer BC ==
[~2020-11-03] VITALS: Ht 157.5 cm; Wt 81.2 kg
[~2020-11-03 05:03] MED LIST changes: -FOLI400T PO; +FOLI400T13 PO
[2020-11-03] MEDS ORDERED: MUCI60TA7 PO (07:50)
[2020-11-03 08:15] VITALS: BP 113/66
[2020-11-03] MEDS ORDERED: guaiFENesin ER 600 MG TAB PO SCH (09:00)
== END 2020-11-03 08:17 | disposition home or self-care (01) ==
LOC: M ED 05:03
DX: J02.9 Acute pharyngitis, unspecified (principal); B34.9 Viral infection, unspecified; D86.0 Sarcoidosis of lung; M79.7 Fibromyalgia; Q07.00 Arnold-Chiari syndrome without spina bifida or hydrocephalus; Z88.8 Allergy status to other drugs, medicaments and biological substances; Z87.19 Personal history of other diseases of the digestive system; Z90.89 Acquired absence of other organs

== ENCOUNTER 2021-11-20 10:20 | Emergency (ER) | payer BC ==
[~2021-11-20] VITALS: Ht 157.5 cm; Wt 78.3 kg
[~2021-11-20 10:20] MED LIST changes: +MUCI60TA7 PO
[2021-11-20 10:21] VITALS: BP 127/83
[2021-11-20] MEDS ORDERED: FLUORESCEIN OPHTH 1 MG STRIP OD ONE (11:35)
[2021-11-20] MEDS ORDERED: IBUPROFEN 800 MG TAB PO ONE (11:35)
[2021-11-20] MEDS ORDERED: TETRACAINE 0.5% OPHTH SOLN 4ML OD ONE (11:35)
[2021-11-20] MEDS ORDERED: CLIN-250 PO (12:38)
== END 2021-11-20 13:50 | disposition home or self-care (01) ==
LOC: M ED 10:20
DX: L03.213 Periorbital cellulitis (principal); K21.9 Gastro-esophageal reflux disease without esophagitis; K52.9 Noninfective gastroenteritis and colitis, unspecified; G43.909 Migraine, unspecified, not intractable, without status migrainosus; D86.9 Sarcoidosis, unspecified; Z88.8 Allergy status to other drugs, medicaments and biological substances

== ENCOUNTER → 2022-03-07 | Outpatient (REF) | payer BC ==
[~2022-03-07] MED LIST changes: +ALBU6.7H6 INH; +CLIN-250 PO; -PROV108A INH
[2022-03-07 18:38] LABS: BASO % 0.5 % (0.0-1.0); EOS # 0.2 10^3/uL (0.0-0.5); EOS % 2.5 % (0.0-3.0); HEMATOCRIT 43.4 % (36.0-47.0); HEMOGLOBIN 13.4 g/dl (12.0-15.5); LYMPH # 1.6 10^3/uL (1.5-5.0); LYMPH % 25.7 % (24.0-44.0); MEAN CORPUSCULAR HEMOGLOBIN 29.8 pg (27.0-33.0); MEAN CORPUSCULAR HGB CONC 30.9 g/dl (32.0-36.5); MEAN CORPUSCULAR VOLUME 96.7 fl (80.0-96.0); MONO # 0.6 10^3/uL (0.0-0.8); NEUTROPHILS # 3.7 10^3/uL (1.5-8.5); NEUTROPHILS % 60.8 % (36.0-66.0); PLATELET COUNT, AUTOMATED 349 10^3/uL (150-450); RED BLOOD COUNT 4.49 10^6/uL (4.00-5.40); WHITE BLOOD COUNT 6.1 10^3/uL (4.0-10.0)
[2022-03-07 18:51] LABS: ALBUMIN 3.9 GM/DL (3.2-5.2); ALT/SGPT 24 U/L (12-78); BILIRUBIN,TOTAL 1.4 MG/DL (0.2-1.0); BLOOD UREA NITROGEN 12 MG/DL (7-18); C REACTIVE PROTEIN QUANTITATIV 0.66 MG/DL (0.00-0.30); CALCIUM LEVEL 9.2 MG/DL (8.5-10.1); CARBON DIOXIDE LEVEL 26 MEQ/L (21-32); CHLORIDE LEVEL 103 MEQ/L (98-107); CHOLESTEROL LEVEL 217 MG/DL (<200); CHOLESTEROL RISK RATIO 3.616 (<5); CREATININE FOR GFR 0.79 MG/DL (0.55-1.30); FREE T4 0.83 NG/DL (0.76-1.46); GLOMERULAR FILTRATION RATE > 60.0 (>58); GLUCOSE, FASTING 78 MG/DL (70-100); HDL CHOLESTEROL 60 MG/DL (>40); LDL CHOLESTEROL 141 MG/DL (<100); NON-HDL-C 157 MG/DL; POTASSIUM SERUM 4.1 MEQ/L (3.5-5.1); RHEUMATOID FACTOR QUANT < 10.0 IU/ML (<15.0); SODIUM LEVEL 135 MEQ/L (136-145); TOTAL PROTEIN 7.3 GM/DL (6.4-8.2); TRIGLYCERIDES LEVEL 82 MG/DL (<150); URIC ACID 4.9 MG/DL (2.6-6.0)
[2022-03-07 19:26] LABS: ERYTHROCYTE SEDIMENTATION RATE 12 mm/hr (0-20)
[2022-03-07 20:09] LABS: HEPATITIS C VIRUS ABY INDEX < 0.0 INDEX (<0.8)
== END ==
LOC: M LAB REF 17:59
PROVIDERS: ATTEND Physician Assistant
DX: Z11.59 Encounter for screening for other viral diseases (principal); M25.562 Pain in left knee; M25.561 Pain in right knee; M25.572 Pain in left ankle and joints of left foot; L71.0 Perioral dermatitis; M25.571 Pain in right ankle and joints of right foot

== ENCOUNTER 2022-03-25 08:21 | Emergency (ER) | payer BC ==
[~2022-03-25] VITALS: Ht 157.5 cm; Wt 80.1 kg
[2022-03-25] MEDS ORDERED: INDOMETHACIN 25 MG CAP PO ONE (10:00)
[2022-03-25] MEDS ORDERED: INDO50CA91 PO (11:06)
[2022-03-25 11:19] VITALS: BP 130/89
== END 2022-03-25 11:25 | disposition home or self-care (01) ==
LOC: M ED 08:21
DX: M25.461 Effusion, right knee (principal); M25.561 Pain in right knee; G43.909 Migraine, unspecified, not intractable, without status migrainosus; F41.9 Anxiety disorder, unspecified; M79.7 Fibromyalgia

== ENCOUNTER 2022-09-18 08:45 | Emergency (ER) | payer BC ==
[~2022-09-18] VITALS: Ht 157.5 cm; Wt 82.2 kg
[~2022-09-18 08:45] MED LIST changes: +INDO50CA91 PO
[2022-09-18 11:15] LABS: BASO # 0.1 10^3/uL (0.0-0.2); BASO % 0.9 % (0.0-1.0); EOS # 0.2 10^3/uL (0.0-0.5); EOS % 3.9 % (0.0-3.0); HEMATOCRIT 43.1 % (36.0-47.0); HEMOGLOBIN 13.6 g/dl (12.0-15.5); LYMPH # 1.4 10^3/uL (1.5-5.0); LYMPH % 23.3 % (24.0-44.0); MEAN CORPUSCULAR HEMOGLOBIN 28.8 pg (27.0-33.0); MEAN CORPUSCULAR HGB CONC 31.6 g/dl (32.0-36.5); MEAN CORPUSCULAR VOLUME 91.3 fl (80.0-96.0); MONO # 0.6 10^3/uL (0.0-0.8); MONO % 9.9 % (2.0-8.0); NEUTROPHILS # 3.6 10^3/uL (1.5-8.5); NEUTROPHILS % 61.7 % (36.0-66.0); PLATELET COUNT, AUTOMATED 286 10^3/uL (150-450); RED BLOOD COUNT 4.72 10^6/uL (4.00-5.40); WHITE BLOOD COUNT 5.8 10^3/uL (4.0-10.0)
[2022-09-18 11:34] LABS: BLOOD UREA NITROGEN 11 MG/DL (9-23); CALCIUM LEVEL 9.9 MG/DL (8.5-10.1); CARBON DIOXIDE LEVEL 31 MMOL/L (20-31); CHLORIDE LEVEL 106 MMOL/L (98-107); CK-MB VALUE MASS < 1.0 NG/ML (<3.6); CPK CREATINE PHOSPHOKINASE 70 U/L (34-145); CREATININE FOR GFR 0.87 MG/DL (0.55-1.30); GLOMERULAR FILTRATION RATE > 60.0 (>51); GLUCOSE, FASTING 96 MG/DL (60-100); MB/CK RELATIVE INDEX 1.42 (< OR =4); POTASSIUM SERUM 4.1 MMOL/L (3.5-5.1); SODIUM LEVEL 142 MMOL/L (136-145)
[2022-09-18] MEDS ORDERED: VENTAER INH (14:19)
[2022-09-18 14:30] VITALS: BP 129/80
== END 2022-09-18 14:32 | disposition home or self-care (01) ==
LOC: M ED 08:45
DX: R06.02 Shortness of breath (principal); D86.9 Sarcoidosis, unspecified; M54.50 Low back pain, unspecified; Z88.8 Allergy status to other drugs, medicaments and biological substances

== ENCOUNTER 2023-01-29 18:47 | Emergency (ER) | payer BC ==
[~2023-01-29] VITALS: Ht 157.5 cm; Wt 82.0 kg
[~2023-01-29 18:47] MED LIST changes: +VENTAER INH
[2023-01-29 18:48] VITALS: TEMP 97.5; O2SAT 98
[2023-01-29 18:51] VITALS: BP 126/96
[2023-01-30] MEDS ORDERED: IBUP-1022 PO (19:47)
[2023-01-30] MEDS ORDERED: AMOX500C PO (19:47)
== END 2023-01-29 22:50 | disposition left against medical advice (07) ==
LOC: M ED 18:47
DX: Z53.21 Procedure and treatment not carried out due to patient leaving prior to being seen by health care provider (principal)

== ENCOUNTER 2023-01-30 16:19 | Emergency (ER) | payer BC ==
[~2023-01-30] VITALS: Ht 157.5 cm; Wt 79.5 kg
[2023-01-30] MEDS ORDERED: AMOXICILLIN 500 MG CAP PO ONE (18:10)
[2023-01-30] MEDS ORDERED: IBUPROFEN 600MG TAB PO ONE (18:10)
[2023-01-30 19:14] VITALS: BP 99/64; TEMP 99.9; O2SAT 97
[2023-01-30] MEDS ORDERED: AMOX500C PO (19:47)
[2023-01-30] MEDS ORDERED: IBUP-1022 PO (19:47)
== END 2023-01-30 20:00 | disposition home or self-care (01) ==
LOC: M ED 16:19
DX: S83.91XA Sprain of unspecified site of right knee, initial encounter (principal); S43.402A Unspecified sprain of left shoulder joint, initial encounter; S53.402A Unspecified sprain of left elbow, initial encounter; S63.8X1A Sprain of other part of right wrist and hand, initial encounter; K04.7 Periapical abscess without sinus; W01.0XXA Fall on same level from slipping, tripping and stumbling without subsequent striking against object, initial encounter; G43.909 Migraine, unspecified, not intractable, without status migrainosus; M79.7 Fibromyalgia; Z88.8 Allergy status to other drugs, medicaments and biological substances; Z79.52 Long term (current) use of systemic steroids; Z79.2 Long term (current) use of antibiotics

== ENCOUNTER 2024-02-21 16:20 | Emergency (ER) | payer SELFPAY ==
[~2024-02-21] VITALS: Ht 157.5 cm; Wt 81.7 kg
[~2024-02-21 16:20] MED LIST changes: +AMOX500C PO; +GABA-1172 PO; -GABA-282 PO
[2024-02-21 17:05] LABS: BASO # 0.1 10^3/uL (0.0-0.2); EOS # 0.4 10^3/uL (0.0-0.5); EOS % 5.7 % (0.0-3.0); HEMATOCRIT 45.4 % (36.0-47.0); HEMOGLOBIN 14.7 g/dl (12.0-15.5); MEAN CORPUSCULAR HEMOGLOBIN 29.5 pg (27.0-33.0); MEAN CORPUSCULAR HGB CONC 32.4 g/dl (32.0-36.5); MEAN CORPUSCULAR VOLUME 91.2 fl (80.0-96.0); MONO # 0.7 10^3/uL (0.0-0.8); MONO % 9.8 % (2.0-8.0); NEUTROPHILS # 3.7 10^3/uL (1.5-8.5); NEUTROPHILS % 54.4 % (36.0-66.0); PLATELET COUNT, AUTOMATED 300 10^3/uL (150-450); RED BLOOD COUNT 4.98 10^6/uL (4.00-5.40); WHITE BLOOD COUNT 6.9 10^3/uL (4.0-10.0)
[2024-02-21 17:28] LABS: ALBUMIN 4.2 G/DL (3.2-5.2); BILIRUBIN,DIRECT 0.2 MG/DL (<0.4); BILIRUBIN,TOTAL 0.8 MG/DL (0.3-1.2); TOTAL PROTEIN 7.4 G/DL (5.7-8.2)
[2024-02-21] MEDS ORDERED: ISOVUE-370 76% 100ML VIAL As Ordered ONE (17:45)
[2024-02-21] MEDS: ONDANSETRON 4MG 2ML VIAL IV ONE (17:50)
[2024-02-21] MEDS: KETOROLAC 30 MG/ML 1ML VIAL IV ONE (17:50)
[2024-02-21] MEDS ORDERED: AMOX875T2 PO (20:29)
[2024-02-21] MEDS: AUGMENTIN 875 MG TAB PO ONE (20:36)
[2024-02-21 20:41] VITALS: BP 130/83; TEMP 96.5; O2SAT 98
== END 2024-02-21 20:45 | disposition home or self-care (01) ==
LOC: M ED 16:20
DX: K57.32 Diverticulitis of large intestine without perforation or abscess without bleeding (principal); Q07.00 Arnold-Chiari syndrome without spina bifida or hydrocephalus; Z88.8 Allergy status to other drugs, medicaments and biological substances; Z79.2 Long term (current) use of antibiotics; Z79.51 Long term (current) use of inhaled steroids; Z79.1 Long term (current) use of non-steroidal anti-inflammatories (NSAID)
CPT/HCPCS: 74177; 80047; 80076; 81001; 83690; 85025; 96374; 99284; J1885; J2405; Q9967